=== PATIENT | female | born 1960 | race American Indian/Alaskan Native ===

== ENCOUNTER 2018-04-30 09:23 | Inpatient (IN) | payer BC, MEDICAID ==
[2018-04-30] MEDS ORDERED: NACL 0.9% 500 ML 500 ML IV ONE (09:42)
[2018-04-30 09:56] LABS: Hematocrit 34.6 % (30.3-42.9); Hemoglobin 11.3 gm/dl (10.1-14.3); Mean Corpuscular HGB Conc 33 % (30-34); Mean Corpuscular Volume 79 fl (79-97); Platelet Count 372 K/mm3 (140-440); Red Blood Count 4.36 M/mm3 (3.65-5.03); Red Cell Distribution Width 14.1 % (13.2-15.2)
[2018-04-30 10:18] LABS: Albumin 3.4 g/dL (3.9-5); Calcium 9.6 mg/dL (8.4-10.2)
[2018-04-30 10:28] LABS: Band Neutrophils # (Manual) 0.6 K/mm3; Basophils % (Manual) 0 % (0.0-1.8); Eosinophils % (Manual) 0 % (0.0-4.3); Total Cells Counted 100
[2018-04-30 10:29] LABS: Hypochromasia 1+
[2018-04-30 10:30] LABS: Anisocytosis 1+
--- NOTE | 2018-04-30 10:52 | XRay Report ---
AP CHEST: HISTORY: Possible sepsis AP view of the chest demonstrates a normal mediastinal and cardiac contour with clear lungs and normal bony and soft tissue structures. IMPRESSION: Unremarkable AP chest.
--- NOTE | 2018-04-30 11:49 | Emergency Department Report ---
ED General Adult HPI - General Chief complaint: Extremity Injury, Lower Stated complaint: HOLE IN FOOT/DIABETIC Time Seen by Provider: 04/30/18 10:53 Source: patient Mode of arrival: Ambulatory Limitations: No Limitations - History of Present Illness Initial comments: Patient presents to emergency department with chief complaint of right foot pain. Patient states she has a wound on the ball of her foot that started about a week ago. The patient recently moved from [place] and states she was doing a lot of packing and walking on her feet and thinks that is the cause of the wound. The patient states that her relocation from [place] to [place] was via car. Patient denies chest pain, shortness breath, or headache. -: Gradual Location: lower extremity Radiation: non-radiation Severity scale (0 -10): 8 Quality: aching Consistency: constant Improves with: none Worsens with: none Associated Symptoms: denies other symptoms Treatments Prior to Arrival: none - Related Data Home Medications Medication Instructions Recorded Confirmed Last Taken Aspirin [Aspir-Low] 81 mg PO DAILY 04/30/18 04/30/18 Unknown Gabapentin [Gralise] 300 mg PO DAILY 04/30/18 04/30/18 Unknown Glipizide/Metformin HCl 1 each PO BID 04/30/18 04/30/18 Unknown [glipiZIDE-Metformin 2.5-250 mg] Lisinopril/Hydrochlorothiazide 1 tab PO QDAY 04/30/18 04/30/18 Unknown [Zestoretic 20-25 mg] Simvastatin 20 mg PO DAILY 04/30/18 04/30/18 Unknown Allergies Allergy/AdvReac Type Severity Reaction Status Date / Time No Known Allergies Allergy Verified 04/30/18 09:32 ED Review of Systems ROS: Stated complaint: HOLE IN FOOT/DIABETIC Other details as noted in HPI Constitutional: denies: chills, fever Eyes: denies: eye pain, eye discharge, vision change ENT: denies: ear pain, throat pain Respiratory: denies: cough, shortness of breath, wheezing Cardiovascular: denies: chest pain, palpitations Endocrine: no symptoms reported Gastrointestinal: denies: abdominal pain, nausea, diarrhea Genitourinary: denies: urgency, dysuria, discharge Musculoskeletal: denies: back pain, joint swelling, arthralgia Skin: lesions. denies: rash Neurological: denies: headache, weakness, paresthesias Psychiatric: denies: anxiety, depression Hematological/Lymphatic: denies: easy bleeding, easy bruising ED Past Medical Hx - Past Medical History Previous Medical History?: Yes Hx Hypertension: Yes Hx Diabetes: Yes Additional medical history: HLD - Surgical History Past Surgical History?: No - Social History Smoking Status: Never Smoker Substance Use Type: None - Medications Home Medications: Home Medications Medication Instructions Recorded Confirmed Last Taken Type Aspirin [Aspir-Low] 81 mg PO DAILY 04/30/18 04/30/18 Unknown History Gabapentin [Gralise] 300 mg PO DAILY 04/30/18 04/30/18 Unknown History Glipizide/Metformin HCl 1 each PO BID 04/30/18 04/30/18 Unknown History [glipiZIDE-Metformin 2.5-250 mg] Lisinopril/Hydrochlorothiazide 1 tab PO QDAY 04/30/18 04/30/18 Unknown History [Zestoretic 20-25 mg] Simvastatin 20 mg PO DAILY 04/30/18 04/30/18 Unknown History ED Physical Exam - General Limitations: No Limitations General appearance: alert, in no apparent distress - Head Head exam: Present: atraumatic, normocephalic - Eye Eye exam: Present: normal appearance, PERRL, EOMI - ENT ENT exam: Present: mucous membranes moist - Neck Neck exam: Present: normal inspection - Respiratory Respiratory exam: Present: normal lung sounds bilaterally. Absent: respiratory distress, wheezes, rales - Cardiovascular Cardiovascular Exam: Present: normal rhythm, tachycardia. Absent: systolic murmur, diastolic murmur, rubs, gallop - GI/Abdominal GI/Abdominal exam: Present: soft, normal bowel sounds. Absent: distended, tenderness - Extremities Exam Extremities exam: Present: other (patient has a ulcer on the plantar aspect of the foot at the ball of the great toe with surrounding erythema streaking onto the lateral aspect of the right leg) - Back Exam Back exam: Present: normal inspection - Neurological Exam Neurological exam: Present: alert, oriented X3, CN II-XII intact. Absent: motor sensory deficit - Psychiatric Psychiatric exam: Present: normal affect, normal mood - Skin Skin exam: Present: warm, dry, intact, normal color, rash ED Course Vital Signs 04/30/18 04/30/18 04/30/18 09:32 09:54 10:01 Temperature 99 F Pulse Rate 106 H 100 H 100 H Respiratory 18 17 Rate Blood Pressure 92/49 O2 Sat by Pulse 99 94 Oximetry ED Medical Decision Making - Lab Data Result diagrams: 04/30/18 09:44 04/30/18 09:44 Lab Results 04/30/18 04/30/18 04/30/18 Range/Units 09:41 09:44 09:44 WBC 21.6 H (4.5-11.0) K/mm3 RBC 4.36 (3.65-5.03) M/mm3 Hgb 11.3 (10.1-14.3) gm/dl Hct 34.6 (30.3-42.9) % MCV 79 (79-97) fl MCH 26 L (28-32) pg MCHC 33 (30-34) % RDW 14.1 (13.2-15.2) % Plt Count 372 (140-440) K/mm3 Add Manual Diff Complete Total Counted 100 Seg Neuts % (Manual) 79.0 H (40.0-70.0) % Band Neutrophils % 3.0 % Lymphocytes % (Manual) 9.0 L (13.4-35.0) % Reactive Lymphs % (Man) 0 % Monocytes % (Manual) 9.0 H (0.0-7.3) % Eosinophils % (Manual) 0 (0.0-4.3) % Basophils % (Manual) 0 (0.0-1.8) % Metamyelocytes % 0 % Myelocytes % 0 % Promyelocytes % 0 % Blast Cells % 0 % Nucleated RBC % Not Reportable Seg Neutrophils # Man 17.1 H (1.8-7.7) K/mm3 Band Neutrophils # 0.6 K/mm3 Lymphocytes # (Manual) 1.9 (1.2-5.4) K/mm3 Abs React Lymphs (Man) 0.0 K/mm3 Monocytes # (Manual) 1.9 H (0.0-0.8) K/mm3 Eosinophils # (Manual) 0.0 (0.0-0.4) K/mm3 Basophils # (Manual) 0.0 (0.0-0.1) K/mm3 Metamyelocytes # 0.0 K/mm3 Myelocytes # 0.0 K/mm3 Promyelocytes # 0.0 K/mm3 Blast Cells # 0.0 K/mm3 WBC Morphology Not Reportable Hypersegmented Neuts Not Reportable Hyposegmented Neuts Not Reportable Hypogranular Neuts Not Reportable Smudge Cells Not Reportable Toxic Granulation Not Reportable Toxic Vacuolation Not Reportable Dohle Bodies Not Reportable Pelger-Huet Anomaly Not Reportable Jb Rods Not Reportable Platelet Estimate Not Reportable Clumped Platelets Not Reportable Plt Clumps, EDTA Not Reportable Large Platelets Not Reportable Giant Platelets Not Reportable Platelet Satelliting Not Reportable Plt Morphology Comment Not Reportable RBC Morphology Not Reportable Dimorphic RBCs Not Reportable Polychromasia 1+ Hypochromasia 1+ Poikilocytosis Not Reportable Anisocytosis 1+ Microcytosis Not Reportable Macrocytosis Not Reportable Spherocytes Not Reportable Pappenheimer Bodies Not Reportable Sickle Cells Not Reportable Target Cells Not Reportable Tear Drop Cells Not Reportable Ovalocytes Not Reportable Helmet Cells Not Reportable [place] Bodies Not Reportable [place] Not Reportable [place] Cells Not Reportable Bite Cells Not Reportable Crenated Cell Not Reportable Elliptocytes Not Reportable Acanthocytes (Spur) Not Reportable Rouleaux Not Reportable Hemoglobin C Crystals Not Reportable Schistocytes Not Reportable Malaria parasites Not Reportable Kevin Bodies Not Reportable Hem Pathologist Commnt No VBG pH (7.320-7.420) Sodium 133 L (137-145) mmol/L Potassium 4.1 (3.6-5.0) mmol/L Chloride 90.9 L (98-107) mmol/L Carbon Dioxide 24 (22-30) mmol/L Anion Gap 22 mmol/L BUN 25 H (7-17) mg/dL Creatinine 1.2 (0.7-1.2) mg/dL Estimated GFR 46 ml/min BUN/Creatinine Ratio 21 % Glucose 215 H (65-100) mg/dL POC Glucose 235 H (70-105) Lactic Acid (0.7-2.0) mmol/L Calcium 9.6 (8.4-10.2) mg/dL Total Bilirubin 0.40 (0.1-1.2) mg/dL AST 19 (5-40) units/L ALT 30 (7-56) units/L Alkaline Phosphatase 187 H (35-129) units/L Total Protein 8.5 H (6.3-8.2) g/dL Albumin 3.4 L (3.9-5) g/dL Albumin/Globulin Ratio 0.7 % 04/30/18 04/30/18 Range/Units 09:44 09:44 WBC (4.5-11.0) K/mm3 RBC (3.65-5.03) M/mm3 Hgb (10.1-14.3) gm/dl Hct (30.3-42.9) % MCV (79-97) fl MCH (28-32) pg MCHC (30-34) % RDW (13.2-15.2) % Plt Count (140-440) K/mm3 Add Manual Diff Total Counted Seg Neuts % (Manual) (40.0-70.0) % Band Neutrophils % % Lymphocytes % (Manual) (13.4-35.0) % Reactive Lymphs % (Man) % Monocytes % (Manual) (0.0-7.3) % Eosinophils % (Manual) (0.0-4.3) % Basophils % (Manual) (0.0-1.8) % Metamyelocytes % % Myelocytes % % Promyelocytes % % Blast Cells % % Nucleated RBC % Seg Neutrophils # Man (1.8-7.7) K/mm3 Band Neutrophils # K/mm3 Lymphocytes # (Manual) (1.2-5.4) K/mm3 Abs React Lymphs (Man) K/mm3 Monocytes # (Manual) (0.0-0.8) K/mm3 Eosinophils # (Manual) (0.0-0.4) K/mm3 Basophils # (Manual) (0.0-0.1) K/mm3 Metamyelocytes # K/mm3 Myelocytes # K/mm3 Promyelocytes # K/mm3 Blast Cells # K/mm3 WBC Morphology Hypersegmented Neuts Hyposegmented Neuts Hypogranular Neuts Smudge Cells Toxic Granulation Toxic Vacuolation Dohle Bodies Pelger-Huet Anomaly Jb Rods Platelet Estimate Clumped Platelets Plt Clumps, EDTA Large Platelets Giant Platelets Platelet Satelliting Plt Morphology Comment RBC Morphology Dimorphic RBCs Polychromasia Hypochromasia Poikilocytosis Anisocytosis Microcytosis Macrocytosis Spherocytes Pappenheimer Bodies Sickle Cells Target Cells Tear Drop Cells Ovalocytes Helmet Cells [place] Bodies [place] Cells Bite Cells Crenated Cell Elliptocytes Acanthocytes (Spur) Rouleaux Hemoglobin C Crystals Schistocytes Malaria parasites Kevin Bodies Hem Pathologist Commnt VBG pH 7.360 (7.320-7.420) Sodium (137-145) mmol/L Potassium (3.6-5.0) mmol/L Chloride (98-107) mmol/L Carbon Dioxide (22-30) mmol/L Anion Gap mmol/L BUN (7-17) mg/dL Creatinine (0.7-1.2) mg/dL Estimated GFR ml/min BUN/Creatinine Ratio % Glucose (65-100) mg/dL POC Glucose (70-105) Lactic Acid 2.40 H* (0.7-2.0) mmol/L Calcium (8.4-10.2) mg/dL Total Bilirubin (0.1-1.2) mg/dL AST (5-40) units/L ALT (7-56) units/L Alkaline Phosphatase (35-129) units/L Total Protein (6.3-8.2) g/dL Albumin (3.9-5) g/dL Albumin/Globulin Ratio % - Radiology Data Radiology results: report reviewed - Medical Decision Making Discussed results with the patient The admitting physician will follow the Doppler ultrasound of the lower extremity Critical care time in (mins) excluding proc time.: 45 Critical care attestation.: If time is entered above; I have spent that time in minutes in the direct care of this critically ill patient, excluding procedure time. ED Disposition Clinical Impression: Sepsis Disposition: [id number] OP ADMIT IP TO THIS HOSP Is pt being admited?: Yes Does the pt Need Aspirin: No Condition: Fair Referrals: ROSITA WYLIE MD [Primary Care Provider] - 3-5 Days
--- NOTE | 2018-04-30 11:58 | XRay Report ---
RIGHT FOOT, 3 views: History: Ulcer. The bony architecture is intact. Bony alignment is normal. The joint spaces appear preserved. Shallow area of ulceration is suspected in the distal foot plantar surface. IMPRESSION: Ulcer.
--- NOTE | 2018-04-30 13:36 | Vascular Lab Report ---
FINAL REPORT EXAM: VL VENOUS DUPLEX LE RT HISTORY: right leg pain COMPARISON: None. TECHNIQUE: Duplex Doppler ultrasound of the veins of the right lower extremity was performed. FINDINGS: The veins of the right lower extremity are patent, compressible, and demonstrate normal waveforms and augmentation. There is a prominent lymph node in the right groin measuring approximately 1 x 2 centimeters. IMPRESSION: No evidence of deep venous thrombosis of the right lower extremity. Prominent lymph node in the right groin measuring approximately 1 x 2 centimeters.
[2018-04-30] MEDS ORDERED: TYLENOL ONE (16:44)
[2018-04-30] MEDS ORDERED: TYLENOL PO ONE (16:45)
--- NOTE | 2018-05-01 00:15 | Event Note ---
Date: 04/30/18 See dictated H/p in reports RLE cellulitis Sepsis T2dm
[2018-05-01] MEDS ORDERED: IBUPROFEN PO PRN (00:18)
[2018-05-01] MEDS ORDERED: ZOFRAN IV PRN (00:18)
[2018-05-01] MEDS ORDERED: SODIUM CHLORIDE FLUSH SYRINGE 10 ML IV PRN (00:18)
[2018-05-01] MEDS ORDERED: REGLAN IV PRN (00:18)
[2018-05-01] MEDS: NEURONTIN PO SCH ×3 (00:30→17:44)
[2018-05-01] MEDS: PEPCID PO SCH ×3 (00:30→22:15)
[2018-05-01] MEDS ORDERED: VANCOMYCIN PHARMACY TO DOSE IV SCH (01:00)
--- NOTE | 2018-05-01 01:03 | History and Physical Report ---
CHIEF COMPLAINT: Right foot ulcer and swelling of the right leg for 1 week. HISTORY OF PRESENT ILLNESS: The patient is a 58-year-old female with history of hypertension, diabetes, peripheral neuropathy, hyperlipidemia, who comes in for right foot ulcer and the right foot and right lower extremity swelling for 1 week. The patient moved recently from [place] and was doing a lot of unpacking and walking on her feet. The patient also has a low-grade fever. The patient came from [place] to [place] via car. Decreased sensation in both the feet. Pain is about 6 on a scale of 1-10. Swelling of the right lower extremity present, especially up to knee. No exacerbating or relieving factors. Walking and standing exacerbates the pain in the right lower extremity. PAST MEDICAL HISTORY: As mentioned, hypertension, diabetes, hyperlipidemia, peripheral neuropathy. CURRENT MEDICATIONS: Glipizide/metformin 2.5/250 b.i.d., lisinopril/hydrochlorothiazide 1 tablet daily, simvastatin 20 mg once a day, aspirin 81 mg once a day, gabapentin 300 mg once a day. PAST SURGICAL HISTORY: No past surgical history. SOCIAL HISTORY: Does not smoke. No alcohol, no recreational drugs. FAMILY HISTORY: Significant for hypertension. REVIEW OF SYSTEMS: Significant for right foot and right leg swelling up to the knee. Low grade fever. Otherwise, review of systems negative. PHYSICAL EXAMINATION: GENERAL: Middle-aged female, cooperative during examination. VITAL SIGNS: Blood pressure is 99/52, improved to 133/65, temperature is 99.3. HEENT: Unremarkable. Pupils equal and reactive. NECK: Supple, no lymphadenopathy, no thyromegaly. LUNGS: Clear to auscultation and percussion. Good air entry. CARDIOVASCULAR: S1, S2 heard. No gallop, no murmur, no rub. Apical impulse in the left fifth intercostal space and midclavicular line. ABDOMEN: Soft and benign. No hepatosplenomegaly. No guarding, no rigidity. Hernial orifices are normal. EXTREMITIES: Right foot ulcer present. 3 cm x 2 cm. Slightly deep. Right foot and right lower extremity swelling. Warm to touch. Pulses are present. CENTRAL NERVOUS SYSTEM: Alert and oriented x 4, nonfocal exam. SKIN: As mentioned, also on the dorsum of the forefoot. LABORATORY DATA: Significant for white count of 21,600, H and H of 11.3 and 34.6, platelet count of 372,000. Sodium is 133, slightly low; BUN and creatinine is 25 and 1.2. Lactic acid is 2.30. Total protein is 8.5, albumin is 3.4. RADIOLOGICAL DATA: The right foot x-ray shows a plantar ulcer. Chest x-ray, no acute finding. Duplex scan of the right lower extremity, no DVT or SVT. ASSESSMENT AND PLAN: 1. Sepsis secondary to right foot ulcer and right foot infection. IV Unasyn and IV vancomycin started. 2. High lactic acid level, the second one normalized. 3. Right lower extremity cellulitis and plantar surface ulcer. The patient initiated on IV antibiotics and wound care. 4. Hypertension. Continue antihypertensives in the form of lisinopril/hydrochlorothiazide 20/25 p.o. daily. 5. Hyperlipidemia. Continue simvastatin 20 mg once a day. 6. Type 2 diabetes. Continue glipizide/metformin 2.5/250 b.i.d. Insulin coverage. 7. Deep venous thrombosis prophylaxis, Lovenox 30 mg subcutaneous daily. JOB# [id number] MARIBELL/WINTER ANDERSEN
[2018-05-01] MEDS: SODIUM CHLORIDE FLUSH SYRINGE 10 ML IV SCH ×2 (01:23→10:28)
[2018-05-01 01:29] LABS: BUN/Creatinine Ratio 26; Blood Urea Nitrogen 21 mg/dL (7-17); Calcium 9.2 mg/dL (8.4-10.2); Hemolysis Index 0
[2018-05-01] MEDS ORDERED: VANCOMYCIN 1,750 MG in NACL 0.9% 500 ML 500 ML IV ONE (02:00)
[2018-05-01] MEDS: UNASYN/NS 3 GM/100 ML 3 GM/100 ML BAG IV SCH ×3 (03:52→11:20)
[2018-05-01] MEDS: TYLENOL PO PRN ×2 (06:40→13:56)
[2018-05-01] MEDS ORDERED: DIABETA PO SCH (08:00)
[2018-05-01] MEDS ORDERED: GLUCOTROL PO SCH (08:00)
[2018-05-01] MEDS: HumaLOG SUB-Q SCH ×3 (08:27→17:13)
[2018-05-01] MEDS: GLUCOPHAGE PO SCH ×2 (08:39→17:42)
[2018-05-01] MEDS: GLUCOTROL PO SCH ×2 (08:41→17:42)
[2018-05-01] MEDS ORDERED: METFORMIN HCL PO SCH (10:00)
[2018-05-01] MEDS ORDERED: GLIPIZIDE PO SCH (10:00)
[2018-05-01] MEDS: HALFPRIN EC PO SCH (10:27)
[2018-05-01] MEDS: ZESTRIL PO SCH (10:27)
[2018-05-01] MEDS: HCTZ PO SCH (10:28)
[2018-05-01] MEDS ORDERED: VANCOMYCIN 1,500 MG in NACL 0.9% 500 ML 500 ML IV SCH (12:00)
[2018-05-01] MEDS: VANCOMYCIN 1,250 MG in NACL 0.9% 250ML 250 ML IV SCH (12:43)
--- NOTE | 2018-05-01 12:48 | Consultation ---
History of Present Illness Consult date: 05/01/18 Chief complaint: right foot wound - History of present illness History of present illness: 58 yo F with hx of DM, poorly controlled presents with c/o right foot pain and foul odor and drainage from foot. She relocated to [place] 1 week ago. She states she was being followed by a comb fixer and wound care doctor in the distant past. She had a wound on her right heel and left 2nd toe which was treated and healed. She states that one week ago she noticed pain and drainage from the bottom part of her right foot. The drainage became foul smelling and this prompted her visit to ER to r/o infection. She denies f/c, cp, sob, n/v, abd pain. She states she doesn't have good sensation on the bottom of the foot. She does not wear diabet ic shoes. Past History Past Medical History: diabetes, hypertension, hyperlipidemia, other (neuropathy) Past Surgical History: Other (left foot surgery) Social history: no significant social history Family history: no significant family history Medications and Allergies Allergies Allergy/AdvReac Type Severity Reaction Status Date / Time No Known Allergies Allergy Verified 04/30/18 09:32 Home Medications Medication Instructions Recorded Confirmed Last Taken Type Aspirin [Aspir-Low] 81 mg PO DAILY 04/30/18 04/30/18 Unknown History Gabapentin [Gralise] 300 mg PO DAILY 04/30/18 04/30/18 Unknown History Glipizide/Metformin HCl 1 each PO BID 04/30/18 04/30/18 Unknown History [glipiZIDE-Metformin 2.5-250 mg] Lisinopril/Hydrochlorothiazide 1 tab PO QDAY 04/30/18 04/30/18 Unknown History [Zestoretic 20-25 mg] Simvastatin 20 mg PO DAILY 04/30/18 04/30/18 Unknown History Active Meds: Active Medications Acetaminophen (Tylenol) 650 mg PO Q4H PRN PRN Reason: Pain MILD(1-3)/Fever >100.5/SALEEM Last Admin: 05/01/18 06:40 Dose: 650 mg Documented by: Aspirin (Halfprin Ec) 81 mg PO DAILY [facility] Last Admin: 05/01/18 10:27 Dose: 81 mg Documented by: Enoxaparin Sodium (Lovenox) 40 mg SUB-Q QDAY@2200 [facility] Famotidine (Pepcid) 20 mg PO BID [facility] Last Admin: 05/01/18 10:28 Dose: 20 mg Documented by: Gabapentin (Neurontin) 100 mg PO Q8H [facility] Last Admin: 05/01/18 08:38 Dose: 100 mg Documented by: Glipizide (Glucotrol) 2.5 mg PO BIDDIAB [facility] Last Admin: 05/01/18 08:41 Dose: 2.5 mg Documented by: Hydrochlorothiazide (Hctz) 25 mg PO QDAY [facility] Last Admin: 05/01/18 10:28 Dose: 25 mg Documented by: Hydromorphone HCl (Dilaudid) 0.5 mg IV Q3H PRN PRN Reason: Pain , Severe (7-10) Ampicillin Sodium/Sulbactam Sodium (Unasyn/Ns 3 Gm/100 Ml) 3 gm in 100 mls @ 100 mls/hr IV Q6HR [facility]; Protocol Last Admin: 05/01/18 11:20 Dose: 100 mls/hr Documented by: Vancomycin HCl 1,250 mg/ (Sodium Chloride) 275 mls @ 166.667 mls/hr IV Q12H [facility] Insulin Human Lispro (Humalog) 0 unit SUB-Q ACHS [facility]; Protocol Last Admin: 05/01/18 08:27 Dose: Not Given Documented by: Lisinopril (Zestril) 20 mg PO QDAY [facility] Last Admin: 05/01/18 10:27 Dose: 20 mg Documented by: Metformin HCl (Glucophage) 250 mg PO BIDDIAB [facility] Last Admin: 05/01/18 08:39 Dose: 250 mg Documented by: Metoclopramide HCl (Reglan) 10 mg IV Q6H PRN PRN Reason: Nausea And Vomiting Ondansetron HCl (Zofran) 4 mg IV Q8H PRN PRN Reason: Nausea And Vomiting Oxycodone/Acetaminophen (Percocet 5/325) 1 tab PO Q6H PRN PRN Reason: Pain, Moderate (4-6) Pravastatin Sodium (Pravachol) 40 mg PO QHS [facility] Sodium Chloride (Sodium Chloride Flush Syringe 10 Ml) 10 ml IV BID [facility] Last Admin: 05/01/18 10:28 Dose: 10 ml Documented by: Sodium Chloride (Sodium Chloride Flush Syringe 10 Ml) 10 ml IV PRN PRN PRN Reason: LINE FLUSH Review of Systems All systems: negative (10 pt ROS performed and negative except for that listed in HPI) Exam Vital Signs Temp Pulse Resp BP Pulse Ox 99 F 106 H 18 92/49 99 04/30/18 09:32 04/30/18 09:32 04/30/18 09:32 04/30/18 09:32 04/30/18 09:32 Narrative exam: Gen; AAOx3. NAD ENT: no scleral icterus or conjunctival pallor CV: S1, S2+ Resp; even and unlabored Ext; right plantar foot wound approx 1 cm, with tunneling to bone. Seropurulent drainage from packing, 1 piece of mesalt removed from wound. There is a callus surrounding the wound with some erythema. No active drainage. packed with one piece of mesalt packing. Wound covered with gauze and wrapped with kerlix. Strongly palpable DP and PT pulses. Results - Labs 04/30/18 09:44 05/01/18 00:35 Abnormal lab results 05/01/18 05/01/18 Range/Units 00:35 00:35 Sodium 134 L (137-145) mmol/L Chloride 93.8 L (98-107) mmol/L BUN 21 H (7-17) mg/dL Hemoglobin A1c 11.7 H (4-6) % Diabetes panel 05/01/18 05/01/18 Range/Units 00:35 00:35 Sodium 134 L (137-145) mmol/L Potassium 3.8 (3.6-5.0) mmol/L Chloride 93.8 L (98-107) mmol/L Carbon Dioxide 25 (22-30) mmol/L BUN 21 H (7-17) mg/dL Creatinine 0.8 (0.7-1.2) mg/dL Glucose 97 (65-100) mg/dL Hemoglobin A1c 11.7 H (4-6) % Calcium 9.2 (8.4-10.2) mg/dL Calcium panel 05/01/18 Range/Units 00:35 Calcium 9.2 (8.4-10.2) mg/dL Pituitary panel 05/01/18 Range/Units 00:35 Sodium 134 L (137-145) mmol/L Potassium 3.8 (3.6-5.0) mmol/L Chloride 93.8 L (98-107) mmol/L Carbon Dioxide 25 (22-30) mmol/L BUN 21 H (7-17) mg/dL Creatinine 0.8 (0.7-1.2) mg/dL Glucose 97 (65-100) mg/dL Calcium 9.2 (8.4-10.2) mg/dL Adrenal panel 05/01/18 Range/Units 00:35 Sodium 134 L (137-145) mmol/L Potassium 3.8 (3.6-5.0) mmol/L Chloride 93.8 L (98-107) mmol/L Carbon Dioxide 25 (22-30) mmol/L BUN 21 H (7-17) mg/dL Creatinine 0.8 (0.7-1.2) mg/dL Glucose 97 (65-100) mg/dL Calcium 9.2 (8.4-10.2) mg/dL Assessment and Plan 58 yo F with 1. diabetic R foot ulcer 2. poorly controlled DM 3. sepsis due to #1 Plan: 1. diabetic diet 2. strict glucose control. Hb A1C is 11.7 3. wound care 4. MRI right foot. I suspect osteomyelitis based on physical exam 5. c/w abx per ID 6. offloading of right foot. PT c/s to teach patient nonweight bearing 7. At this point, the wound is open and draining without evidence of additional abscess or necrosis. Will hold off on debridement. If MRI shows patient has an a bscess, will take her to OR for drainage. Frrther recs pending MRI 8. recommend case management c/s - pt states insurance lapses in a few days. Will need investigation. If she will be unfunded at time of dc, will need helping hands application to follow up in wound care center. Thank you, please call with questions
--- NOTE | 2018-05-01 13:16 | Consultation ---
History of Present Illness - Reason for Consult Consult date: 05/01/18 Right foot cellulitis, DM, ulcer, sepsis Requesting physician: PRESTON LEIGH - History of Present Illness The patient is a 58-year-old female with hypertension, diabetes, peripheral neuropathy related to diabetes, hyperlipidemia presented to the emergency yesterday with complaints of right leg pain and ulceration for the last week or so. The patient just recently moved from [place] to [place] and apparently drove in the car and spent a lot of time on her feet. She denies any direct trauma. This has been associated with fever. Due to increasing pain, she came here. Here in the emergency room, she was noted to have right axillary distress with right plantar ulcer. She was also found to be septic with leukocytosis, fever, lactic acidosis. She was empirically started on antibiotics and admitted to the hospital. Infectious diseases has been consulted for antibiotic recommendations. Patient denies any previous history of mold infection or osteomyelitis. She does give a history of prior leg infections. She denies any smoking, alcohol or recreational drug use. Family history: Positive for hypertension. Review of Systems: General: + for fevers, no chills or rigors HEENT: no new visual disturbance Respiratory: No cough, sputum, hemoptysis or shortness of breath Cardiovascular: No chest pain, syncope Gastrointestinal: No nausea, vomiting or diarrhea Genitourinary: No dysuria or hematuria Musculoskeletal: No new or worsening neck pain or back pain Neurologic: No headaches, seizures Hematologic: No easy bruising or bleeding Endocrine: No night sweats or acute weight loss Skin: negative for rash, jaundice Psychiatric: No suicidal or homicidal ideation Past History Past Medical History: diabetes, hypertension, hyperlipidemia, other (neuropathy) Past Surgical History: Other (left foot surgery) Social history: no significant social history Family history: no significant family history Medications and Allergies Allergies Allergy/AdvReac Type Severity Reaction Status Date / Time No Known Allergies Allergy Verified 04/30/18 09:32 Home Medications Medication Instructions Recorded Confirmed Last Taken Type Aspirin [Aspir-Low] 81 mg PO DAILY 04/30/18 04/30/18 Unknown History Gabapentin [Gralise] 300 mg PO DAILY 04/30/18 04/30/18 Unknown History Glipizide/Metformin HCl 1 each PO BID 04/30/18 04/30/18 Unknown History [glipiZIDE-Metformin 2.5-250 mg] Lisinopril/Hydrochlorothiazide 1 tab PO QDAY 04/30/18 04/30/18 Unknown History [Zestoretic 20-25 mg] Simvastatin 20 mg PO DAILY 04/30/18 04/30/18 Unknown History Active Meds: Active Medications Acetaminophen (Tylenol) 650 mg PO Q4H PRN PRN Reason: Pain MILD(1-3)/Fever >100.5/SALEEM Last Admin: 05/01/18 06:40 Dose: 650 mg Documented by: Aspirin (Halfprin Ec) 81 mg PO DAILY [facility] Last Admin: 05/01/18 10:27 Dose: 81 mg Documented by: Enoxaparin Sodium (Lovenox) 40 mg SUB-Q QDAY@2200 [facility] Famotidine (Pepcid) 20 mg PO BID [facility] Last Admin: 05/01/18 10:28 Dose: 20 mg Documented by: Gabapentin (Neurontin) 100 mg PO Q8H [facility] Last Admin: 05/01/18 08:38 Dose: 100 mg Documented by: Glipizide (Glucotrol) 2.5 mg PO BIDDIAB [facility] Last Admin: 05/01/18 08:41 Dose: 2.5 mg Documented by: Hydrochlorothiazide (Hctz) 25 mg PO QDAY [facility] Last Admin: 05/01/18 10:28 Dose: 25 mg Documented by: Hydromorphone HCl (Dilaudid) 0.5 mg IV Q3H PRN PRN Reason: Pain , Severe (7-10) Ampicillin Sodium/Sulbactam Sodium (Unasyn/Ns 3 Gm/100 Ml) 3 gm in 100 mls @ 100 mls/hr IV Q6HR [facility]; Protocol Last Admin: 05/01/18 11:20 Dose: 100 mls/hr Documented by: Vancomycin HCl 1,250 mg/ (Sodium Chloride) 275 mls @ 166.667 mls/hr IV Q12H [facility] Last Admin: 05/01/18 12:43 Dose: 166.667 mls/hr Documented by: Insulin Human Lispro (Humalog) 0 unit SUB-Q ACHS [facility]; Protocol Last Admin: 05/01/18 12:43 Dose: Not Given Documented by: Lisinopril (Zestril) 20 mg PO QDAY [facility] Last Admin: 05/01/18 10:27 Dose: 20 mg Documented by: Metformin HCl (Glucophage) 250 mg PO BIDDIAB [facility] Last Admin: 05/01/18 08:39 Dose: 250 mg Documented by: Metoclopramide HCl (Reglan) 10 mg IV Q6H PRN PRN Reason: Nausea And Vomiting Ondansetron HCl (Zofran) 4 mg IV Q8H PRN PRN Reason: Nausea And Vomiting Oxycodone/Acetaminophen (Percocet 5/325) 1 tab PO Q6H PRN PRN Reason: Pain, Moderate (4-6) Pravastatin Sodium (Pravachol) 40 mg PO QHS [facility] Sodium Chloride (Sodium Chloride Flush Syringe 10 Ml) 10 ml IV BID [facility] Last Admin: 05/01/18 10:28 Dose: 10 ml Documented by: Sodium Chloride (Sodium Chloride Flush Syringe 10 Ml) 10 ml IV PRN PRN PRN Reason: LINE FLUSH Physical Examination - Physical Exam Narrative exam: Physical Exam: Constitutional: Alert, cooperative. No acute distress Head, Ears, Nose: Normocephalic, atraumatic. External ears, nose normal Eyes: Conjunctivae/corneas clear. No icterus. No ptosis. Neck: Supple, no meningeal signs Oral: dentition missing teeth, no thrush Cardiovascular: S1, S2 normal. Respiratory: Good air entry, clear to auscultation bilaterally GI: Soft, non-tender; bowel sounds normal. No peritoneal signs Musculoskeletal: right foot in dressing, there is swelling, redness and tenderness of the leg upto mid mo, right groin lymph node +. right plantar ulcer+ Skin: No rash or abscess Hem/Lymphatic: No palpable cervical or supraclavicular nodes. No lymphangitis Psych: Mood ok. Affect normal Neurological: Awake, alert, oriented. peripheral neuropathy + - Constitutional Vitals: Vital Signs Temp Pulse Resp BP Pulse Ox 99.8 F H 105 H 20 147/68 94 05/01/18 12:50 05/01/18 12:50 05/01/18 12:50 05/01/18 12:50 05/01/18 12:50 Temperature -Last 24 Hours Temperature 99.8 F Temperature 98.8 F Temperature 101.5 F Temperature 100.5 F Temperature 99.3 F Temperature 100.8 F Results - Labs CBC & Chem 7: 04/30/18 09:44 05/01/18 00:35 Labs: Abnormal lab results 05/01/18 05/01/18 Range/Units 00:35 00:35 Sodium 134 L (137-145) mmol/L Chloride 93.8 L (98-107) mmol/L BUN 21 H (7-17) mg/dL Hemoglobin A1c 11.7 H (4-6) % - Imaging and Cardiology Chest x-ray: report reviewed, image reviewed (Chest x-ray showed no obvious pneumonia. ) Assessment and Plan Cultures: 05/08/2018 blood culture: No growth at 24 hours 04/30/2018 wound culture: In process A/P: 58-year-old female with hypertension, diabetes, peripheral neuropathy related to diabetes, hyperlipidemia. Admitted with: 1) Sepsis secondary to right foot diabetic foot ulcer infected with associated cellulitis: concern for underlying osteomyelitis. Needs MRI. Start broad coverage for now, pending cultures. 2) Diabetes mellitus type 2 uncontrolled: Recommend tight glycemic control. 3) Diabetic neuropathy: high risk for osteomyelitis. Recs: Switch antibiotics to cefepime, Flagyl and vancomycin MRI ordered to evaluate for underlying osteomyelitis and abscess Follow-up blood and wound cultures to help de-escalate antibiotics MD [facility] C: [phone] O: [phone] F: [phone]
--- NOTE | 2018-05-01 16:46 | Progress Note ---
Assessment and Plan Assessment and plan: Patient is a 58 yo Black woman with a history of NIDDM with neuropathy on gabapentin, hypertension and dyslipidemia who presents to [facility] ED with right foot pains on the ball of her foot that started about a week ago. Now, she is having severe pains, difficulty ambulating and foul ordor with drainage. She just moved to [place] about 1 week ago from [place] -Sepsis from Right foot infection: get blood and wound culture, MRI foot to rule out osteomyelitis, Switch antibiotics to cefepime, Flagyl and vancomycin -Right foot cellulitis: treat with abx -Poorly controlled DM: SSI -Diabetic neuropathy: continue gabapentin History Interval history: Patient was seen and examined. Follow-up on current diagnosis right plantar foot infection. Overnight uneventful. Patient denies any chest pain, shortness breath, nausea/vomiting or severe headaches. Imaging, nursing note, chart, labs and old chart reviewed. Discussed with patient. Hospitalist Physical - Physical exam Narrative exam: Gen: WDWN, NAD, Awake, Alert, Orientated HEENT: NCAT, EOMI, PERRL, OP Clear Neck: supple, no adenopathy, no thyromegaly, no JVD CVS/Heart: RRR, normal S1S2, pulses present bilaterally Chest/Lungs: CTA B, Symmetrical chest expansion, good air entry bilaterally GI/Abdomen: soft, NTND, good bowel sounds, no guarding or rebound /Bladder: no suprapubic tenderness, no CVA or paraspinal tenderness Extermity/Skin: under right big toe there is a foul smelling ulcer MSK: FROM x 4 Neuro: CN 2-12 grossly intact, no new focal deficits Psych: calm - Constitutional Vitals: Temp Pulse Resp BP Pulse Ox 99.8 F H 105 H 20 147/68 94 05/01/18 12:50 05/01/18 12:50 05/01/18 12:50 05/01/18 12:50 05/01/18 12:50 Results - Labs CBC & Chem 7: 04/30/18 09:44 05/01/18 00:35 Labs: Laboratory Last Values WBC 21.6 K/mm3 (4.5-11.0) H 04/30/18 09:44 RBC 4.36 M/mm3 (3.65-5.03) 04/30/18 09:44 Hgb 11.3 gm/dl (10.1-14.3) 04/30/18 09:44 Hct 34.6 % (30.3-42.9) 04/30/18 09:44 MCV 79 fl (79-97) 04/30/18 09:44 MCH 26 pg (28-32) L 04/30/18 09:44 MCHC 33 % (30-34) 04/30/18 09:44 RDW 14.1 % (13.2-15.2) 04/30/18 09:44 Plt Count 372 K/mm3 (140-440) 04/30/18 09:44 Add Manual Diff Complete 04/30/18 09:44 Total Counted 100 04/30/18 09:44 Seg Neuts % (Manual) 79.0 % (40.0-70.0) H 04/30/18 09:44 Band Neutrophils % 3.0 % 04/30/18 09:44 Lymphocytes % (Manual) 9.0 % (13.4-35.0) L 04/30/18 09:44 Reactive Lymphs % (Man) 0 % 04/30/18 09:44 Monocytes % (Manual) 9.0 % (0.0-7.3) H 04/30/18 09:44 Eosinophils % (Manual) 0 % (0.0-4.3) 04/30/18 09:44 Basophils % (Manual) 0 % (0.0-1.8) 04/30/18 09:44 Metamyelocytes % 0 % 04/30/18 09:44 Myelocytes % 0 % 04/30/18 09:44 Promyelocytes % 0 % 04/30/18 09:44 Blast Cells % 0 % 04/30/18 09:44 Nucleated RBC % Not Reportable 04/30/18 09:44 Seg Neutrophils # Man 17.1 K/mm3 (1.8-7.7) H 04/30/18 09:44 Band Neutrophils # 0.6 K/mm3 04/30/18 09:44 Lymphocytes # (Manual) 1.9 K/mm3 (1.2-5.4) 04/30/18 09:44 Abs React Lymphs (Man) 0.0 K/mm3 04/30/18 09:44 Monocytes # (Manual) 1.9 K/mm3 (0.0-0.8) H 04/30/18 09:44 Eosinophils # (Manual) 0.0 K/mm3 (0.0-0.4) 04/30/18 09:44 Basophils # (Manual) 0.0 K/mm3 (0.0-0.1) 04/30/18 09:44 Metamyelocytes # 0.0 K/mm3 04/30/18 09:44 Myelocytes # 0.0 K/mm3 04/30/18 09:44 Promyelocytes # 0.0 K/mm3 04/30/18 09:44 Blast Cells # 0.0 K/mm3 04/30/18 09:44 WBC Morphology Not Reportable 04/30/18 09:44 Hypersegmented Neuts Not Reportable 04/30/18 09:44 Hyposegmented Neuts Not Reportable 04/30/18 09:44 Hypogranular Neuts Not Reportable 04/30/18 09:44 Smudge Cells Not Reportable 04/30/18 09:44 Toxic Granulation Not Reportable 04/30/18 09:44 Toxic Vacuolation Not Reportable 04/30/18 09:44 Dohle Bodies Not Reportable 04/30/18 09:44 Pelger-Huet Anomaly Not Reportable 04/30/18 09:44 Jb Rods Not Reportable 04/30/18 09:44 Platelet Estimate Not Reportable 04/30/18 09:44 Clumped Platelets Not Reportable 04/30/18 09:44 Plt Clumps, EDTA Not Reportable 04/30/18 09:44 Large Platelets Not Reportable 04/30/18 09:44 Giant Platelets Not Reportable 04/30/18 09:44 Platelet Satelliting Not Reportable 04/30/18 09:44 Plt Morphology Comment Not Reportable 04/30/18 09:44 RBC Morphology Not Reportable 04/30/18 09:44 Dimorphic RBCs Not Reportable 04/30/18 09:44 Polychromasia 1+ 04/30/18 09:44 Hypochromasia 1+ 04/30/18 09:44 Poikilocytosis Not Reportable 04/30/18 09:44 Anisocytosis 1+ 04/30/18 09:44 Microcytosis Not Reportable 04/30/18 09:44 Macrocytosis Not Reportable 04/30/18 09:44 Spherocytes Not Reportable 04/30/18 09:44 Pappenheimer Bodies Not Reportable 04/30/18 09:44 Sickle Cells Not Reportable 04/30/18 09:44 Target Cells Not Reportable 04/30/18 09:44 Tear Drop Cells Not Reportable 04/30/18 09:44 Ovalocytes Not Reportable 04/30/18 09:44 Helmet Cells Not Reportable 04/30/18 09:44 [place] Bodies Not Reportable 04/30/18 09:44 [place] Rings Not Reportable 04/30/18 09:44 Rk Cells Not Reportable 04/30/18 09:44 Bite Cells Not Reportable 04/30/18 09:44 Crenated Cell Not Reportable 04/30/18 09:44 Elliptocytes Not Reportable 04/30/18 09:44 Acanthocytes (Spur) Not Reportable 04/30/18 09:44 Rouleaux Not Reportable 04/30/18 09:44 Hemoglobin C Crystals Not Reportable 04/30/18 09:44 Schistocytes Not Reportable 04/30/18 09:44 Malaria parasites Not Reportable 04/30/18 09:44 Kevin Bodies Not Reportable 04/30/18 09:44 Hem Pathologist Commnt No 04/30/18 09:44 VBG pH 7.360 (7.320-7.420) 04/30/18 09:44 Sodium 134 mmol/L (137-145) L 05/01/18 00:35 Potassium 3.8 mmol/L (3.6-5.0) 05/01/18 00:35 Chloride 93.8 mmol/L (98-107) L 05/01/18 00:35 Carbon Dioxide 25 mmol/L (22-30) 05/01/18 00:35 Anion Gap 19 mmol/L 05/01/18 00:35 BUN 21 mg/dL (7-17) H 05/01/18 00:35 Creatinine 0.8 mg/dL (0.7-1.2) 05/01/18 00:35 Estimated GFR > 60 ml/min 05/01/18 00:35 BUN/Creatinine Ratio 26 % 05/01/18 00:35 Glucose 97 mg/dL (65-100) 05/01/18 00:35 POC Glucose 143 (70-105) H 05/01/18 12:45 Hemoglobin A1c 11.7 % (4-6) H 05/01/18 00:35 Lactic Acid 1.10 mmol/L (0.7-2.0) 04/30/18 13:00 Calcium 9.2 mg/dL (8.4-10.2) 05/01/18 00:35 Total Bilirubin 0.40 mg/dL (0.1-1.2) 04/30/18 09:44 AST 19 units/L (5-40) 04/30/18 09:44 ALT 30 units/L (7-56) 04/30/18 09:44 Alkaline Phosphatase 187 units/L (35-129) H 04/30/18 09:44 Total Protein 8.5 g/dL (6.3-8.2) H 04/30/18 09:44 Albumin 3.4 g/dL (3.9-5) L 04/30/18 09:44 Albumin/Globulin Ratio 0.7 % 04/30/18 09:44
[2018-05-01] MEDS: FLAGYL 500 MG/100 ML 500 MG/100 ML BAG IV SCH ×2 (16:57→22:14)
[2018-05-01] MEDS ORDERED: NACL 0.9% 500 ML 500 ML IV ONE (17:26)
[2018-05-01] MEDS: NACL 0.9% 1000 ML 1,000 ML IV SCH ×2 (17:37→23:36)
[2018-05-01] MEDS: MAXIPIME/NS 2 GM/100 ML 2 GM/100 ML BAG IV SCH ×2 (17:37→23:31)
[2018-05-01] MEDS ORDERED: NACL 0.9% 1000 ML 1,000 ML IV ONE (19:01)
[2018-05-01] MEDS: PRAVACHOL PO SCH (22:15)
[2018-05-01] MEDS: LOVENOX SUB-Q SCH (22:15)
--- NOTE | 2018-05-01 22:39 | Magnetic Resonance Report ---
FINAL REPORT PROCEDURE: MR LE JOINT RT W CON TECHNIQUE: Magnetic resonance imaging of the RIGHT foot was performed using standard pulse sequences before and after the IV injection of paramagnetic contrast. HISTORY: right plantar foot wound, r/o osteo COMPARISON: No prior studies are available for comparison. FINDINGS: There is plantar ulceration in the forefoot underlying the distal 2nd metatarsal. There is no bone ma rrow edema seen to suggest osteomyelitis. There is diffuse subcutaneous edema and enhancement, compat ible with cellulitis. There is edema and enhancement of the intrinsic musculature of the foot, compat ible with myositis or denervation change. No organized abscess is seen. IMPRESSION: Plantar forefoot skin ulcer. No evidence of osteomyelitis or soft tissue abscess
[2018-05-02 05:24] LABS: Basophils # (Auto) 0.1 K/mm3 (0.0-0.1); Basophils % (Auto) 0.4 % (0.0-1.8); Eosinophils # (Auto) 0.2 K/mm3 (0.0-0.4); Eosinophils % (Auto) 1.1 % (0.0-4.3); Hematocrit 29.2 % (30.3-42.9); Hemoglobin 9.5 gm/dl (10.1-14.3); Lymphocytes # (Auto) 2.1 K/mm3 (1.2-5.4); Lymphocytes % (Auto) 11.7 % (13.4-35.0); Mean Corpuscular HGB Conc 33 % (30-34); Mean Corpuscular Volume 78 fl (79-97); Monocytes # (Auto) 1.6 K/mm3 (0.0-0.8); Monocytes % (Auto) 8.8 % (0.0-7.3); Platelet Count 354 K/mm3 (140-440); Red Blood Count 3.75 M/mm3 (3.65-5.03); Red Cell Distribution Width 13.8 % (13.2-15.2)
[2018-05-02 06:01] LABS: Alanine Aminotransferase 29 units/L (7-56); Albumin 2.4 g/dL (3.9-5); BUN/Creatinine Ratio 23; Blood Urea Nitrogen 18 mg/dL (7-17); Calcium 8.2 mg/dL (8.4-10.2); Hemolysis Index 0
[2018-05-02] MEDS: MAXIPIME/NS 2 GM/100 ML 2 GM/100 ML BAG IV SCH ×3 (07:20→22:21)
[2018-05-02] MEDS: FLAGYL 500 MG/100 ML 500 MG/100 ML BAG IV SCH ×3 (07:20→22:21)
[2018-05-02] MEDS: HumaLOG SUB-Q SCH ×4 (08:15→22:24)
--- NOTE | 2018-05-02 09:11 | Progress Note ---
Assessment and Plan Cultures: 05/08/2018 blood culture: No growth at 24 hours 04/30/2018 wound culture: In process A/P: 58-year-old female with hypertension, diabetes, peripheral neuropathy related to diabetes, hyperlipidemia. Admitted with: 1) Sepsis Improving, leukocytosis trending down, no fevers secondary to right foot diabetic foot ulcer infected with associated cellulitis: concern for underlying osteomyelitis. Needs MRI. Start broad coverage for now, pending cultures. 2) Diabetes mellitus type 2 uncontrolled: Recommend tight glycemic control. 3) Diabetic neuropathy: high risk for osteomyelitis. + Purulent drainage today, I & D at bedside by Dr Crockett. MRI results show plantar forefoot skin ulcer. No evidence of osteomyelitis or soft tissue abscess . Recs: Continue Cefepime 2 gms IV every 8 hours, D2 Continue Flagyl 500mg IV every 8 hours, D2 of D7 Continue Vancomycin 1250 mg IV every 12 hours, D2 Follow-up blood and wound cultures to help de-escalate antibiotics CBC ordered for tomorrow [facility] M: [phone] O:[phone] Subjective Date of service: 05/02/18 Interval history: Patient seen and examined. Denied generalized pain, sob or fevers. Stated that she was feeling better today. Nurses notes, labs and reports reviewed, discussed with patient. Objective - Exam Narrative Exam: Constitutional: Alert, cooperative. No acute distress Head, Ears, Nose: Normocephalic, atraumatic. External ears, nose normal Eyes: Conjunctivae/corneas clear. No icterus. No ptosis. Neck: Supple, no meningeal signs Oral: dentition missing teeth, no thrush Cardiovascular: S1, S2 normal. Respiratory: Good air entry, clear to auscultation bilaterally GI: Soft, non-tender; bowel sounds normal. No peritoneal signs Musculoskeletal: right foot in dressing, , + right plantar ulcer+, +purulent drainage Skin: No rash or abscess Hem/Lymphatic: No palpable cervical or supraclavicular nodes. No lymphangitis Psych: Mood ok. Affect normal Neurological: Awake, alert, oriented. peripheral neuropathy + - Constitutional Vitals: Vital Signs Temp Pulse Resp BP Pulse Ox 98.4 F 85 20 93/46 94 05/02/18 06:13 05/02/18 06:13 05/02/18 06:13 05/02/18 06:13 05/02/18 06:13 Temperature -Last 24 Hours Temperature 98.4 F Temperature 99.4 F Temperature 99.1 F Temperature 99.8 F Temperature 98.8 F - Labs CBC & Chem 7: 05/02/18 05:07 05/02/18 05:07 Labs: Abnormal lab results 05/01/18 05/01/18 05/01/18 Range/Units 12:45 17:05 21:44 WBC (4.5-11.0) K/mm3 Hgb (10.1-14.3) gm/dl Hct (30.3-42.9) % MCV (79-97) fl MCH (28-32) pg Lymph % (Auto) (13.4-35.0) % [place] % (Auto) (0.0-7.3) % [place] # (0.0-0.8) K/mm3 Seg Neutrophils % (40.0-70.0) % Seg Neutrophils # (1.8-7.7) K/mm3 Sodium (137-145) mmol/L BUN (7-17) mg/dL POC Glucose 143 H 186 H 140 H (70-105) Calcium (8.4-10.2) mg/dL Alkaline Phosphatase (35-129) units/L Albumin (3.9-5) g/dL 05/02/18 05/02/18 Range/Units 05:07 05:07 WBC 17.8 H (4.5-11.0) K/mm3 Hgb 9.5 L (10.1-14.3) gm/dl Hct 29.2 L (30.3-42.9) % MCV 78 L (79-97) fl MCH 26 L (28-32) pg Lymph % (Auto) 11.7 L (13.4-35.0) % [place] % (Auto) 8.8 H (0.0-7.3) % [place] # 1.6 H (0.0-0.8) K/mm3 Seg Neutrophils % 78.0 H (40.0-70.0) % Seg Neutrophils # 13.9 H (1.8-7.7) K/mm3 Sodium 135 L (137-145) mmol/L BUN 18 H (7-17) mg/dL POC Glucose (70-105) Calcium 8.2 L (8.4-10.2) mg/dL Alkaline Phosphatase 165 H (35-129) units/L Albumin 2.4 L (3.9-5) g/dL
[2018-05-02] MEDS ORDERED: XYLOCAINE 1% 20 mL INFILTRATI ONE ×2 (10:01→13:59)
--- NOTE | 2018-05-02 10:05 | Progress Note ---
Assessment and Plan 58 yo F with 1. diabetic R foot ulcer 2. poorly controlled DM 3. sepsis due to #1 MRI R foot - no osteomyelitis or soft tissue abscess Plan: 1. diabetic diet 2. strict glucose control. Hb A1C is 11.7 3. wound care 4. c/w abx per ID 5. offloading of right foot. PT c/s to teach patient nonweight bearing 6. Wound with more purulent drainage today, will need bedside incision and drainage. Discussed with patient and she is agreeable. 7. WBC trending down -> continue to monitor. 8. d/w case management - will need helping hands application to follow up in wound care center. Thank you, please call with questions Subjective Date of service: 05/02/18 Narrative: Pt seen and examined. No complaints. Feels better today. No f/c. States there is drainage from right foot wound. Objective Vital Signs - 12hr 05/01/18 05/01/18 05/02/18 22:14 23:40 06:13 Temperature 99.4 F 98.4 F Pulse Rate 84 84 85 Respiratory 17 20 20 Rate Blood Pressure 96/54 82/44 93/46 O2 Sat by Pulse 95 94 94 Oximetry - General physical appearance Narrative Exam: Gen; AAOx3. NAD CV: s1, S2+ Resp: even and unlabored Ext: R foot wound on plantar aspect of foot with purulent drainage and p ersistent erythema/cellulitis. One piece of mesalt packing removed. Minimal TTP. Covered with ABD pad and wrapped with kerlix. - Labs 05/02/18 05:07 05/02/18 05:07 Diabetes panel 05/02/18 Range/Units 05:07 Sodium 135 L (137-145) mmol/L Potassium 3.9 (3.6-5.0) mmol/L Chloride 100.4 (98-107) mmol/L Carbon Dioxide 24 (22-30) mmol/L BUN 18 H (7-17) mg/dL Creatinine 0.8 (0.7-1.2) mg/dL Glucose 83 (65-100) mg/dL Calcium 8.2 L (8.4-10.2) mg/dL AST 23 (5-40) units/L ALT 29 (7-56) units/L Alkaline Phosphatase 165 H (35-129) units/L Total Protein 6.6 D (6.3-8.2) g/dL Albumin 2.4 L (3.9-5) g/dL Calcium panel 05/02/18 Range/Units 05:07 Calcium 8.2 L (8.4-10.2) mg/dL Albumin 2.4 L (3.9-5) g/dL Pituitary panel 05/02/18 Range/Units 05:07 Sodium 135 L (137-145) mmol/L Potassium 3.9 (3.6-5.0) mmol/L Chloride 100.4 (98-107) mmol/L Carbon Dioxide 24 (22-30) mmol/L BUN 18 H (7-17) mg/dL Creatinine 0.8 (0.7-1.2) mg/dL Glucose 83 (65-100) mg/dL Calcium 8.2 L (8.4-10.2) mg/dL Adrenal panel 05/02/18 Range/Units 05:07 Sodium 135 L (137-145) mmol/L Potassium 3.9 (3.6-5.0) mmol/L Chloride 100.4 (98-107) mmol/L Carbon Dioxide 24 (22-30) mmol/L BUN 18 H (7-17) mg/dL Creatinine 0.8 (0.7-1.2) mg/dL Glucose 83 (65-100) mg/dL Calcium 8.2 L (8.4-10.2) mg/dL Total Bilirubin 0.30 (0.1-1.2) mg/dL AST 23 (5-40) units/L ALT 29 (7-56) units/L Alkaline Phosphatase 165 H (35-129) units/L Total Protein 6.6 D (6.3-8.2) g/dL Albumin 2.4 L (3.9-5) g/dL
[2018-05-02] MEDS: HALFPRIN EC PO SCH (10:22)
[2018-05-02] MEDS: PEPCID PO SCH ×2 (10:22→22:23)
[2018-05-02] MEDS: SODIUM CHLORIDE FLUSH SYRINGE 10 ML IV SCH ×2 (10:23→22:23)
[2018-05-02] MEDS: GLUCOTROL PO SCH ×2 (10:26→18:40)
[2018-05-02] MEDS: NEURONTIN PO SCH ×3 (10:27→22:32)
[2018-05-02] MEDS: ZESTRIL PO SCH (10:27)
[2018-05-02] MEDS: GLUCOPHAGE PO SCH ×2 (10:27→18:40)
[2018-05-02] MEDS: HCTZ PO SCH (10:28)
[2018-05-02] MEDS ORDERED: MORPHINE IV ONE (13:21)
[2018-05-02] MEDS: DILAUDID IV PRN (13:39)
--- NOTE | 2018-05-02 14:11 | Procedure Note ---
Date of procedure: 05/02/18 Pre-op diagnosis: arreola grade 3 diabetic ulcer with abscess Post-op diagnosis: same Procedure: Open Incision and drainage of right diabetic foot abscess with excisional debridement of wound Findings: Consent obtained for procedure. Plantar aspect of right foot prepped with betadine in sterile fashion. Time out performed. Skin anesthetized with 1% lidocaine - approximately 6 cc used. Using a 15 blade the skin was opened to ext end the wound in the anterior and posterior direction. The wound was probed with a gloved finger and multiple loculations were broken up. There was drainage of pus. Cultures were obtained. The callus surrounding the wound was excised using foreceps and scissors. There was bleeding from the wound edges and wound bed which was controlled adequately with pressure. The wound extended through the subcutaneous tissue and devitalized subcutaneous tissue was debrided using scissors and foreceps. The abscess cavity probed approximately 3 cm in the posterior direction and 2 cm in the anterior direction. The abscess cavity measured approximately 8 cm x 5 cm. The preprocedure wound measurements were 1.5X1X3. The post procedure wound measurement is 6 cm x 4cm x 3.1 cm. The wound was examined and irrigated with saline and hemostasis ensured. The wound was packed with 1 piece of kerlix moistened with saline. This was covered with 4x4 gauze, abd pads, and wrapped with kerlix. Secured with tape. The patient tolerated the procedure well. All sharps were disposed of appropriately. Anesthesia: local Surgeon: ROGELIO SNOWDEN Estimated blood loss: minimal Pathology: list (wound culture) Specimen disposition: to lab Condition: stable Disposition: PACU
--- NOTE | 2018-05-02 15:19 | Progress Note ---
Assessment and Plan Assessment and plan: Patient is a 58 yo Black woman with a history of NIDDM with neuropathy on gabapentin, hypertension and dyslipidemia who presents to [facility] ED with right foot pains on the ball of her foot that started about a week ago. Now, she is having severe pains, difficulty ambulating and foul ordor with drainage. She just moved to [place] about 1 week ago from [place] -Sepsis from Right foot infection with abscess s/p excisional debridement: following blood and wound culture, MRI foot ruled out osteomyelitis, Switch antibiotics to cefepime, Flagyl and vancomycin -Right foot cellulitis: treat with abx, ID is following -Poorly controlled DM: SSI -Diabetic neuropathy: continue gabapentin History Interval history: Patient was seen and examined. Follow-up on current diagnosis right plantar foot infection. Overnight uneventful. Patient denies any chest pain, shortness breath, nausea/vomiting or severe headaches. Imaging, nursing note, chart, labs and old chart reviewed. Discussed with patient. Hospitalist Physical - Physical exam Narrative exam: Gen: WDWN, NAD, Awake, Alert, Orientated HEENT: NCAT, EOMI, PERRL, OP Clear Neck: supple, no adenopathy, no thyromegaly, no JVD CVS/Heart: RRR, normal S1S2, pulses present bilaterally Chest/Lungs: CTA B, Symmetrical chest expansion, good air entry bilaterally GI/Abdomen: soft, NTND, good bowel sounds, no guarding or rebound /Bladder: no suprapubic tenderness, no CVA or paraspinal tenderness Extermity/Skin: under right big toe there is a foul smelling ulcer MSK: FROM x 4 Neuro: CN 2-12 grossly intact, no new focal deficits Psych: calm - Constitutional Vitals: Temp Pulse Resp BP Pulse Ox 99.1 F 91 H 18 106/57 94 05/02/18 11:49 05/02/18 11:49 05/02/18 11:49 05/02/18 11:49 05/02/18 11:49 Results - Labs CBC & Chem 7: 05/02/18 05:07 05/02/18 05:07 Labs: Laboratory Last Values WBC 17.8 K/mm3 (4.5-11.0) H 05/02/18 05:07 RBC 3.75 M/mm3 (3.65-5.03) 05/02/18 05:07 Hgb 9.5 gm/dl (10.1-14.3) L 05/02/18 05:07 Hct 29.2 % (30.3-42.9) L 05/02/18 05:07 MCV 78 fl (79-97) L 05/02/18 05:07 MCH 26 pg (28-32) L 05/02/18 05:07 MCHC 33 % (30-34) 05/02/18 05:07 RDW 13.8 % (13.2-15.2) 05/02/18 05:07 Plt Count 354 K/mm3 (140-440) 05/02/18 05:07 Lymph % (Auto) 11.7 % (13.4-35.0) L 05/02/18 05:07 [place] % (Auto) 8.8 % (0.0-7.3) H 05/02/18 05:07 Eos % (Auto) 1.1 % (0.0-4.3) 05/02/18 05:07 Baso % (Auto) 0.4 % (0.0-1.8) 05/02/18 05:07 Lymph # 2.1 K/mm3 (1.2-5.4) 05/02/18 05:07 [place] # 1.6 K/mm3 (0.0-0.8) H 05/02/18 05:07 Eos # 0.2 K/mm3 (0.0-0.4) 05/02/18 05:07 Baso # 0.1 K/mm3 (0.0-0.1) 05/02/18 05:07 Add Manual Diff Complete 04/30/18 09:44 Total Counted 100 04/30/18 09:44 Seg Neutrophils % 78.0 % (40.0-70.0) H 05/02/18 05:07 Seg Neuts % (Manual) 79.0 % (40.0-70.0) H 04/30/18 09:44 Band Neutrophils % 3.0 % 04/30/18 09:44 Lymphocytes % (Manual) 9.0 % (13.4-35.0) L 04/30/18 09:44 Reactive Lymphs % (Man) 0 % 04/30/18 09:44 Monocytes % (Manual) 9.0 % (0.0-7.3) H 04/30/18 09:44 Eosinophils % (Manual) 0 % (0.0-4.3) 04/30/18 09:44 Basophils % (Manual) 0 % (0.0-1.8) 04/30/18 09:44 Metamyelocytes % 0 % 04/30/18 09:44 Myelocytes % 0 % 04/30/18 09:44 Promyelocytes % 0 % 04/30/18 09:44 Blast Cells % 0 % 04/30/18 09:44 Nucleated RBC % Not Reportable 04/30/18 09:44 Seg Neutrophils # 13.9 K/mm3 (1.8-7.7) H 05/02/18 05:07 Seg Neutrophils # Man 17.1 K/mm3 (1.8-7.7) H 04/30/18 09:44 Band Neutrophils # 0.6 K/mm3 04/30/18 09:44 Lymphocytes # (Manual) 1.9 K/mm3 (1.2-5.4) 04/30/18 09:44 Abs React Lymphs (Man) 0.0 K/mm3 04/30/18 09:44 Monocytes # (Manual) 1.9 K/mm3 (0.0-0.8) H 04/30/18 09:44 Eosinophils # (Manual) 0.0 K/mm3 (0.0-0.4) 04/30/18 09:44 Basophils # (Manual) 0.0 K/mm3 (0.0-0.1) 04/30/18 09:44 Metamyelocytes # 0.0 K/mm3 04/30/18 09:44 Myelocytes # 0.0 K/mm3 04/30/18 09:44 Promyelocytes # 0.0 K/mm3 04/30/18 09:44 Blast Cells # 0.0 K/mm3 04/30/18 09:44 WBC Morphology Not Reportable 04/30/18 09:44 Hypersegmented Neuts Not Reportable 04/30/18 09:44 Hyposegmented Neuts Not Reportable 04/30/18 09:44 Hypogranular Neuts Not Reportable 04/30/18 09:44 Smudge Cells Not Reportable 04/30/18 09:44 Toxic Granulation Not Reportable 04/30/18 09:44 Toxic Vacuolation Not Reportable 04/30/18 09:44 Dohle Bodies Not Reportable 04/30/18 09:44 Pelger-Huet Anomaly Not Reportable 04/30/18 09:44 Jb Rods Not Reportable 04/30/18 09:44 Platelet Estimate Not Reportable 04/30/18 09:44 Clumped Platelets Not Reportable 04/30/18 09:44 Plt Clumps, EDTA Not Reportable 04/30/18 09:44 Large Platelets Not Reportable 04/30/18 09:44 Giant Platelets Not Reportable 04/30/18 09:44 Platelet Satelliting Not Reportable 04/30/18 09:44 Plt Morphology Comment Not Reportable 04/30/18 09:44 RBC Morphology Not Reportable 04/30/18 09:44 Dimorphic RBCs Not Reportable 04/30/18 09:44 Polychromasia 1+ 04/30/18 09:44 Hypochromasia 1+ 04/30/18 09:44 Poikilocytosis Not Reportable 04/30/18 09:44 Anisocytosis 1+ 04/30/18 09:44 Microcytosis Not Reportable 04/30/18 09:44 Macrocytosis Not Reportable 04/30/18 09:44 Spherocytes Not Reportable 04/30/18 09:44 Pappenheimer Bodies Not Reportable 04/30/18 09:44 Sickle Cells Not Reportable 04/30/18 09:44 Target Cells Not Reportable 04/30/18 09:44 Tear Drop Cells Not Reportable 04/30/18 09:44 Ovalocytes Not Reportable 04/30/18 09:44 Helmet Cells Not Reportable 04/30/18 09:44 [place] Bodies Not Reportable 04/30/18 09:44 [place] Rings Not Reportable 04/30/18 09:44 [place] Cells Not Reportable 04/30/18 09:44 Bite Cells Not Reportable 04/30/18 09:44 Crenated Cell Not Reportable 04/30/18 09:44 Elliptocytes Not Reportable 04/30/18 09:44 Acanthocytes (Spur) Not Reportable 04/30/18 09:44 Rouleaux Not Reportable 04/30/18 09:44 Hemoglobin C Crystals Not Reportable 04/30/18 09:44 Schistocytes Not Reportable 04/30/18 09:44 Malaria parasites Not Reportable 04/30/18 09:44 Kevin Bodies Not Reportable 04/30/18 09:44 Hem Pathologist Commnt No 04/30/18 09:44 VBG pH 7.360 (7.320-7.420) 04/30/18 09:44 Sodium 135 mmol/L (137-145) L 05/02/18 05:07 Potassium 3.9 mmol/L (3.6-5.0) 05/02/18 05:07 Chloride 100.4 mmol/L (98-107) 05/02/18 05:07 Carbon Dioxide 24 mmol/L (22-30) 05/02/18 05:07 Anion Gap 15 mmol/L 05/02/18 05:07 BUN 18 mg/dL (7-17) H 05/02/18 05:07 Creatinine 0.8 mg/dL (0.7-1.2) 05/02/18 05:07 Estimated GFR > 60 ml/min 05/02/18 05:07 BUN/Creatinine Ratio 23 % 05/02/18 05:07 Glucose 83 mg/dL (65-100) 05/02/18 05:07 POC Glucose 133 (70-105) H 05/02/18 11:58 Hemoglobin A1c 11.7 % (4-6) H 05/01/18 00:35 Lactic Acid 1.10 mmol/L (0.7-2.0) 04/30/18 13:00 Calcium 8.2 mg/dL (8.4-10.2) L 05/02/18 05:07 Total Bilirubin 0.30 mg/dL (0.1-1.2) 05/02/18 05:07 AST 23 units/L (5-40) 05/02/18 05:07 ALT 29 units/L (7-56) 05/02/18 05:07 Alkaline Phosphatase 165 units/L (35-129) H 05/02/18 05:07 Total Protein 6.6 g/dL (6.3-8.2) D 05/02/18 05:07 Albumin 2.4 g/dL (3.9-5) L 05/02/18 05:07 Albumin/Globulin Ratio 0.6 % 05/02/18 05:07
[2018-05-02] MEDS: TYLENOL PO PRN (18:40)
[2018-05-02] MEDS: VANCOMYCIN 1,250 MG in NACL 0.9% 250ML 250 ML IV SCH ×2 (18:46)
[2018-05-02] MEDS: LOVENOX SUB-Q SCH (22:21)
[2018-05-02] MEDS: PRAVACHOL PO SCH (22:22)
[2018-05-03 00:40] LABS: Hematocrit 32.4 % (30.3-42.9); Hemoglobin 10.1 gm/dl (10.1-14.3); Mean Corpuscular HGB Conc 31 % (30-34); Mean Corpuscular Volume 80 fl (79-97); Platelet Count 355 K/mm3 (140-440); Red Blood Count 4.06 M/mm3 (3.65-5.03); Red Cell Distribution Width 13.9 % (13.2-15.2)
[2018-05-03] MEDS: NEURONTIN PO SCH ×3 (02:30→17:24)
[2018-05-03] MEDS: VANCOMYCIN 1,250 MG in NACL 0.9% 250ML 250 ML IV SCH ×2 (02:33→12:00)
[2018-05-03 03:52] LABS: Band Neutrophils # (Manual) 1.1 K/mm3; Basophils % (Manual) 0 % (0.0-1.8); Eosinophils % (Manual) 0 % (0.0-4.3); Ovalocytes 1+; Stomatocytes Rare; Target Cells Rare; Total Cells Counted 100
[2018-05-03] MEDS: FLAGYL 500 MG/100 ML 500 MG/100 ML BAG IV SCH (05:59)
[2018-05-03] MEDS: MAXIPIME/NS 2 GM/100 ML 2 GM/100 ML BAG IV SCH (05:59)
[2018-05-03] MEDS: TYLENOL PO PRN ×2 (06:44→15:02)
[2018-05-03] MEDS: GLUCOTROL PO SCH ×2 (08:22→17:36)
[2018-05-03] MEDS: GLUCOPHAGE PO SCH ×2 (08:22→17:35)
[2018-05-03] MEDS: HumaLOG SUB-Q SCH ×4 (08:22→22:11)
--- NOTE | 2018-05-03 09:36 | Progress Note ---
Assessment and Plan Cultures: 05/08/2018 blood culture: No growth thus far 04/30/2018 wound culture: Staph Aureus A/P: 58-year-old female with hypertension, diabetes, peripheral neuropathy related to diabetes, hyperlipidemia. Admitted with: 1) Sepsis Continuing, Leukocytosis, spiking fevers. secondary to right foot diabetic foot ulcer infected with associated cellulitis: s/p open Incision and drainage of right diabetic foot abscess with excisional debridement of wound, 05/02/18. Start ceftriaxone. 2) Diabetes mellitus type 2 uncontrolled: Recommend tight glycemic control. 3) Diabetic neuropathy: high risk for osteomyelitis. + Purulent drainage today, I & D at bedside by Dr Crockett. MRI results show plantar forefoot skin ulcer. No evidence of osteomyelitis or soft tissue abscess. Will treat for cellulitis. Wound Culture grew staph aureus. Discontinue cefepime and flagyl, Continue vancomycin. Recs: Discontnue Cefepime 2 gms IV every 8 hours Disontinue Flagyl 500mg IV every 8 hours, Continue Vancomycin 1250 mg IV every 12 hours, D3 Start Ceftriaxone 2gms every 24 hours Follow-up blood and wound cultures to help de-escalate antibiotics Anticipate discharge on PO Abx once clinically improving. 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 [facility] M: [phone] O:[phone] Subjective Date of service: 05/03/18 Interval history: Patient seen and examined. Denied generalized pain or SOB. Stated that she continues to feel feverish. Nurses notes, labs and reports reviewed, discussed with patient. Objective - Exam Narrative Exam: Constitutional: Alert, cooperative. No acute distress Head, Ears, Nose: Normocephalic, atraumatic. External ears, nose normal Eyes: Conjunctivae/corneas clear. No icterus. No ptosis. Neck: Supple, no meningeal signs Oral: dentition missing teeth, no thrush Cardiovascular: S1, S2 normal. Respiratory: Good air entry, clear to auscultation bilaterally GI: Soft, non-tender; bowel sounds normal. No peritoneal signs Musculoskeletal: right foot in dressing, , + right plantar ulcer+, + dressing, no drainage observed Skin: No rash or abscess Hem/Lymphatic: No palpable cervical or supraclavicular nodes. No lymphangitis Psych: Mood ok. Affect normal Neurological: Awake, alert, oriented. peripheral neuropathy + - Constitutional Vitals: Vital Signs Temp Pulse Resp BP Pulse Ox 99.5 F 86 20 108/60 94 05/03/18 08:12 05/03/18 08:12 05/03/18 08:12 05/03/18 08:12 05/03/18 08:12 Temperature -Last 24 Hours Temperature 99.5 F Temperature 99.0 F Temperature 102.4 F Temperature 99.1 F - Labs CBC & Chem 7: 05/03/18 00:19 05/02/18 05:07 Labs: Abnormal lab results 05/02/18 05/02/18 05/03/18 Range/Units 11:58 22:11 00:19 WBC 22.4 H (4.5-11.0) K/mm3 MCH 25 L (28-32) pg Seg Neuts % (Manual) 79.0 H (40.0-70.0) % Lymphocytes % (Manual) 10.0 L (13.4-35.0) % Seg Neutrophils # Man 17.7 H (1.8-7.7) K/mm3 Monocytes # (Manual) 1.3 H (0.0-0.8) K/mm3 POC Glucose 133 H 59 L (70-105) 05/03/18 Range/Units 08:07 WBC (4.5-11.0) K/mm3 MCH (28-32) pg Seg Neuts % (Manual) (40.0-70.0) % Lymphocytes % (Manual) (13.4-35.0) % Seg Neutrophils # Man (1.8-7.7) K/mm3 Monocytes # (Manual) (0.0-0.8) K/mm3 POC Glucose 63 L (70-105)
[2018-05-03] MEDS: HALFPRIN EC PO SCH (10:44)
[2018-05-03] MEDS: PEPCID PO SCH ×2 (10:44→22:13)
[2018-05-03] MEDS: HCTZ PO SCH (10:45)
[2018-05-03] MEDS: SODIUM CHLORIDE FLUSH SYRINGE 10 ML IV SCH ×2 (10:45→22:12)
[2018-05-03] MEDS: ZESTRIL PO SCH (10:45)
[2018-05-03] MEDS: DAKIN'S HALF STRENGTH TP SCH (13:00)
--- NOTE | 2018-05-03 13:10 | Progress Note ---
Assessment and Plan 58 yo F with 1. infected diabetic R foot ulcer s/p incision and drainage and excisional debridement, POD 1 2. poorly controlled DM 3. sepsis due to #1 MRI R foot - no osteomyelitis or soft tissue abscess Plan: 1. diabetic diet 2. strict glucose control. Hb A1C is 11.7 3. wound care - will do dakins BID. 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 c/w abx per ID 5. offloading of right foot. 6. follow up cultures 7. trend WBC and monitor for additional fevers 8. d/w case management - will need helping hands application to follow up in wound care center and outpatient wound vac. Will follow up on Sunday. If patient's wound worsens, will plan for [place] debridement. Pt understands the plan. Will keep NPO p [place] on Sunday in case we will be proceeding to [place] Thank you, please call with questions Subjective Date of service: 05/03/18 Narrative: Pt seen and examined. Feels cold. fever of 102.4 yesterday evening. Afebrile since. No n/v, cp, sob. Minimal pain in right foot. Objective Vital Signs - 12hr 05/03/18 05/03/18 08:12 12:30 Temperature 99.5 F 99.4 F Pulse Rate 86 88 Respiratory 20 18 Rate Blood Pressure 108/60 133/78 O2 Sat by Pulse 94 95 Oximetry - General physical appearance Narrative Exam: Gen; AAOx3. NAD CV: s1, s2+ resp: even and unlabored Ext; R foot wound - 1 piece of packing removed. Wound bed with slough which was removed using scissors. + purulent drainage from 12 oclock position expressed. Wound probed and no loculations felt and no additional purulent drainage. Wound bed inflamed but pink with minimal slough. - Labs 05/03/18 00:19 05/02/18 05:07
--- NOTE | 2018-05-03 14:36 | Progress Note ---
Assessment and Plan Assessment and plan: Patient is a 58 yo Black woman with a history of NIDDM with neuropathy on gabapentin, hypertension and dyslipidemia who presents to [facility] ED with right foot pains on the ball of her foot that started about a week ago. Now, she is having severe pains, difficulty ambulating and foul ordor with drainage. She just moved to [place] about 1 week ago from [place] -Sepsis from Right foot infection with abscess s/p excisional debridement: following blood and wound culture, MRI foot ruled out osteomyelitis, Switch antibiotics to cefepime, Flagyl and vancomycin -Right foot cellulitis: treat with abx, ID is following -Poorly controlled DM: SSI -Diabetic neuropathy: continue gabapentin Dispo: continue inpatient care, still spiking fevers, wound culture growing Staph aureus, await finalization. History Interval history: Patient was seen and examined. Follow-up on current diagnosis right plantar foot infection. Overnight uneventful. Patient denies any chest pain, shortness breath, nausea/vomiting or severe headaches. Imaging, nursing note, chart, labs and old chart reviewed. Discussed with patient. Hospitalist Physical - Physical exam Narrative exam: Gen: WDWN, NAD, Awake, Alert, Orientated HEENT: NCAT, EOMI, PERRL, OP Clear Neck: supple, no adenopathy, no thyromegaly, no JVD CVS/Heart: RRR, normal S1S2, pulses present bilaterally Chest/Lungs: CTA B, Symmetrical chest expansion, good air entry bilaterally GI/Abdomen: soft, NTND, good bowel sounds, no guarding or rebound /Bladder: no suprapubic tenderness, no CVA or paraspinal tenderness Extermity/Skin: under right big toe there is a foul smelling ulcer MSK: FROM x 4 Neuro: CN 2-12 grossly intact, no new focal deficits Psych: calm - Constitutional Vitals: Temp Pulse Resp BP Pulse Ox 99.4 F 88 18 133/78 95 05/03/18 12:30 05/03/18 12:30 05/03/18 12:30 05/03/18 12:30 05/03/18 12:30 Results - Labs CBC & Chem 7: 05/03/18 00:19 05/02/18 05:07 Labs: Laboratory Last Values WBC 22.4 K/mm3 (4.5-11.0) H 05/03/18 00:19 RBC 4.06 M/mm3 (3.65-5.03) 05/03/18 00:19 Hgb 10.1 gm/dl (10.1-14.3) 05/03/18 00:19 Hct 32.4 % (30.3-42.9) 05/03/18 00:19 MCV 80 fl (79-97) 05/03/18 00:19 MCH 25 pg (28-32) L 05/03/18 00:19 MCHC 31 % (30-34) 05/03/18 00:19 RDW 13.9 % (13.2-15.2) 05/03/18 00:19 Plt Count 355 K/mm3 (140-440) 05/03/18 00:19 Lymph % (Auto) 11.7 % (13.4-35.0) L 05/02/18 05:07 [place] % (Auto) 8.8 % (0.0-7.3) H 05/02/18 05:07 Eos % (Auto) 1.1 % (0.0-4.3) 05/02/18 05:07 Baso % (Auto) 0.4 % (0.0-1.8) 05/02/18 05:07 Lymph # 2.1 K/mm3 (1.2-5.4) 05/02/18 05:07 [place] # 1.6 K/mm3 (0.0-0.8) H 05/02/18 05:07 Eos # 0.2 K/mm3 (0.0-0.4) 05/02/18 05:07 Baso # 0.1 K/mm3 (0.0-0.1) 05/02/18 05:07 Add Manual Diff Complete 05/03/18 00:19 Total Counted 100 05/03/18 00:19 Seg Neutrophils % 78.0 % (40.0-70.0) H 05/02/18 05:07 Seg Neuts % (Manual) 79.0 % (40.0-70.0) H 05/03/18 00:19 Band Neutrophils % 5.0 % 05/03/18 00:19 Lymphocytes % (Manual) 10.0 % (13.4-35.0) L 05/03/18 00:19 Reactive Lymphs % (Man) 0 % 02/15/19 00:19 Monocytes % (Manual) 6.0 % (0.0-7.3) 05/03/18 00:19 Eosinophils % (Manual) 0 % (0.0-4.3) 05/03/18 00:19 Basophils % (Manual) 0 % (0.0-1.8) 05/03/18 00:19 Metamyelocytes % 0 % 05/03/18 00:19 Myelocytes % 0 % 05/03/18 00:19 Promyelocytes % 0 % 05/03/18 00:19 Blast Cells % 0 % 05/03/18 00:19 Nucleated RBC % Not Reportable 05/03/18 00:19 Seg Neutrophils # 13.9 K/mm3 (1.8-7.7) H 05/02/18 05:07 Seg Neutrophils # Man 17.7 K/mm3 (1.8-7.7) H 05/03/18 00:19 Band Neutrophils # 1.1 K/mm3 05/03/18 00:19 Lymphocytes # (Manual) 2.2 K/mm3 (1.2-5.4) 05/03/18 00:19 Abs React Lymphs (Man) 0.0 K/mm3 05/03/18 00:19 Monocytes # (Manual) 1.3 K/mm3 (0.0-0.8) H 05/03/18 00:19 Eosinophils # (Manual) 0.0 K/mm3 (0.0-0.4) 05/03/18 00:19 Basophils # (Manual) 0.0 K/mm3 (0.0-0.1) 05/03/18 00:19 Metamyelocytes # 0.0 K/mm3 05/03/18 00:19 Myelocytes # 0.0 K/mm3 05/03/18 00:19 Promyelocytes # 0.0 K/mm3 05/03/18 00:19 Blast Cells # 0.0 K/mm3 05/03/18 00:19 WBC Morphology Not Reportable 05/03/18 00:19 Hypersegmented Neuts Not Reportable 05/03/18 00:19 Hyposegmented Neuts Not Reportable 05/03/18 00:19 Hypogranular Neuts Not Reportable 05/03/18 00:19 Smudge Cells Not Reportable 05/03/18 00:19 Toxic Granulation Not Reportable 05/03/18 00:19 Toxic Vacuolation Not Reportable 05/03/18 00:19 Dohle Bodies Not Reportable 05/03/18 00:19 Pelger-Huet Anomaly Not Reportable 05/03/18 00:19 Jb Rods Not Reportable 05/03/18 00:19 Platelet Estimate Appears normal 05/03/18 00:19 Clumped Platelets Not Reportable 05/03/18 00:19 Plt Clumps, EDTA Not Reportable 05/03/18 00:19 Large Platelets Not Reportable 05/03/18 00:19 Giant Platelets Not Reportable 05/03/18 00:19 Platelet Satelliting Not Reportable 05/03/18 00:19 Plt Morphology Comment Not Reportable 05/03/18 00:19 RBC Morphology Not Reportable 05/03/18 00:19 Dimorphic RBCs Not Reportable 05/03/18 00:19 Polychromasia Not Reportable 05/03/18 00:19 Hypochromasia Not Reportable 05/03/18 00:19 Poikilocytosis Not Reportable 05/03/18 00:19 Anisocytosis Not Reportable 05/03/18 00:19 Microcytosis Not Reportable 05/03/18 00:19 Macrocytosis Not Reportable 05/03/18 00:19 Spherocytes Not Reportable 05/03/18 00:19 Pappenheimer Bodies Not Reportable 05/03/18 00:19 Sickle Cells Not Reportable 05/03/18 00:19 Target Cells Rare 05/03/18 00:19 Tear Drop Cells Not Reportable 05/03/18 00:19 Ovalocytes 1+ 05/03/18 00:19 Stomatocytes Rare 05/03/18 00:19 Helmet Cells Not Reportable 05/03/18 00:19 [place] Bodies Not Reportable 05/03/18 00:19 [place] Rings Not Reportable 05/03/18 00:19 Rk Cells Not Reportable 05/03/18 00:19 Bite Cells Not Reportable 05/03/18 00:19 Crenated Cell Not Reportable 05/03/18 00:19 Elliptocytes Not Reportable 05/03/18 00:19 Acanthocytes (Spur) Not Reportable 05/03/18 00:19 Rouleaux Not Reportable 05/03/18 00:19 Hemoglobin C Crystals Not Reportable 05/03/18 00:19 Schistocytes Not Reportable 05/03/18 00:19 [place] parasites Not Reportable 05/03/18 00:19 Kevin Bodies Not Reportable 05/03/18 00:19 Hem Pathologist Commnt No 05/03/18 00:19 VBG pH 7.360 (7.320-7.420) 04/30/18 09:44 Sodium 135 mmol/L (137-145) L 05/02/18 05:07 Potassium 3.9 mmol/L (3.6-5.0) 05/02/18 05:07 Chloride 100.4 mmol/L (98-107) 05/02/18 05:07 Carbon Dioxide 24 mmol/L (22-30) 05/02/18 05:07 Anion Gap 15 mmol/L 05/02/18 05:07 BUN 18 mg/dL (7-17) H 05/02/18 05:07 Creatinine 0.8 mg/dL (0.7-1.2) 05/02/18 05:07 Estimated GFR > 60 ml/min 05/02/18 05:07 BUN/Creatinine Ratio 23 % 05/02/18 05:07 Glucose 83 mg/dL (65-100) 05/02/18 05:07 POC Glucose 97 (70-105) 05/03/18 12:31 Hemoglobin A1c 11.7 % (4-6) H 05/01/18 00:35 Lactic Acid 1.10 mmol/L (0.7-2.0) 04/30/18 13:00 Calcium 8.2 mg/dL (8.4-10.2) L 05/02/18 05:07 Total Bilirubin 0.30 mg/dL (0.1-1.2) 05/02/18 05:07 AST 23 units/L (5-40) 05/02/18 05:07 ALT 29 units/L (7-56) 05/02/18 05:07 Alkaline Phosphatase 165 units/L (35-129) H 05/02/18 05:07 Total Protein 6.6 g/dL (6.3-8.2) D 05/02/18 05:07 Albumin 2.4 g/dL (3.9-5) L 05/02/18 05:07 Albumin/Globulin Ratio 0.6 % 05/02/18 05:07
[2018-05-03] MEDS: NACL 0.9% 1000 ML 1,000 ML IV SCH (17:25)
[2018-05-03] MEDS: ROCEPHIN/NS 2 GM/100 ML 2 GM/100 ML BAG IV SCH (17:25)
[2018-05-03] MEDS ORDERED: NACL 0.9% 500 ML 500 ML IV ONE (18:13)
[2018-05-03] MEDS: LOVENOX SUB-Q SCH (22:13)
[2018-05-03] MEDS: PRAVACHOL PO SCH (22:13)
[2018-05-04] MEDS: VANCOMYCIN 1,250 MG in NACL 0.9% 250ML 250 ML IV SCH ×2 (00:22→13:05)
[2018-05-04] MEDS: TYLENOL PO PRN ×3 (00:22→18:41)
[2018-05-04] MEDS: NEURONTIN PO SCH ×4 (00:23→23:33)
[2018-05-04] MEDS: DAKIN'S HALF STRENGTH TP SCH ×3 (00:30→21:32)
[2018-05-04 05:20] LABS: Hematocrit 28.1 % (30.3-42.9); Hemoglobin 8.9 gm/dl (10.1-14.3); Mean Corpuscular HGB Conc 32 % (30-34); Mean Corpuscular Volume 78 fl (79-97); Platelet Count 344 K/mm3 (140-440); Red Blood Count 3.59 M/mm3 (3.65-5.03); Red Cell Distribution Width 13.8 % (13.2-15.2)
[2018-05-04 05:25] LABS: BUN/Creatinine Ratio 15; Blood Urea Nitrogen 9 mg/dL (7-17); Calcium 8.1 mg/dL (8.4-10.2); Hemolysis Index 1
[2018-05-04] MEDS: NACL 0.9% 1000 ML 1,000 ML IV SCH ×2 (05:33→16:36)
[2018-05-04] MEDS: ROCEPHIN/NS 2 GM/100 ML 2 GM/100 ML BAG IV SCH (09:29)
[2018-05-04] MEDS: GLUCOPHAGE PO SCH ×2 (09:30→16:34)
[2018-05-04] MEDS: HCTZ PO SCH (09:30)
[2018-05-04] MEDS: ZESTRIL PO SCH (09:30)
[2018-05-04] MEDS: PEPCID PO SCH ×2 (09:31→21:27)
[2018-05-04] MEDS: HALFPRIN EC PO SCH (09:31)
[2018-05-04] MEDS: HumaLOG SUB-Q SCH ×4 (09:40→21:20)
[2018-05-04] MEDS: SODIUM CHLORIDE FLUSH SYRINGE 10 ML IV SCH ×2 (09:41→21:28)
[2018-05-04] MEDS: PERCOCET 5/325 PO PRN ×2 (12:30→21:27)
--- NOTE | 2018-05-04 13:02 | Progress Note ---
Assessment and Plan Cultures: 05/08/2018 blood culture: No growth thus far 04/30/2018 wound culture: MSSA, Group B Strep A/P: 58-year-old female with hypertension, diabetes, peripheral neuropathy related to diabetes, hyperlipidemia. Admitted with: 1) Sepsis: Leukocytosis, fevers secondary to right foot diabetic foot ulcer infected with associated cellulitis and superficial abscess: s/p open Incision and drainage of right diabetic foot abscess with excisional debridement of wound, 05/02/18. Cultures growing Group B Strep and MSSA. MRI results show plantar forefoot skin ulcer. No evidence of osteomyelitis or soft tissue abscess. 2) Diabetes mellitus type 2 uncontrolled: Recommend tight glycemic control. 3) Diabetic neuropathy: high risk for osteomyelitis. Recs: discontinued Ceftriaxone and Vancomycin started IV Cefazolin higher dose 2 gm q6 hrs MD [facility] C: [phone] O: [phone] F: [phone] Subjective Date of service: 05/04/18 Interval history: Reports nausea. Also with ongoing fevers. Right foot pain improving. Still has some drainage. Objective - Exam Narrative Exam: Physical Exam: Constitutional: Alert, cooperative. No acute distress Head, Ears, Nose: Normocephalic, atraumatic. External ears, nose normal Eyes: Conjunctivae/corneas clear. No icterus. No ptosis. Neck: Supple, no meningeal signs Oral: several missing teeth, no thrush Cardiovascular: S1, S2 normal. Respiratory: Good air entry, clear to auscultation bilaterally GI: Soft, non-tender; bowel sounds normal. No peritoneal signs Musculoskeletal: right foot in dressing with drainage from sole, there is swelling, redness and tenderness of the leg upto mid mo, Skin: No rash or abscess Hem/Lymphatic: No palpable cervical or supraclavicular nodes. No lymphangitis Psych: Mood ok. Affect normal Neurological: Awake, alert, oriented. peripheral neuropathy + - Constitutional Vitals: Vital Signs Temp Pulse Resp BP Pulse Ox 99.6 F 104 H 22 164/86 93 05/04/18 11:53 05/04/18 11:53 05/04/18 11:53 05/04/18 11:53 05/04/18 11:53 Temperature -Last 24 Hours Temperature 99.6 F Temperature 100.4 F Temperature 98.5 F Temperature 102.6 F Temperature 98.8 F Temperature 101.2 F - Labs CBC & Chem 7: 05/04/18 04:38 05/04/18 04:38 Labs: Abnormal lab results 05/03/18 05/04/18 05/04/18 Range/Units 21:31 04:38 04:38 WBC 22.2 H (4.5-11.0) K/mm3 RBC 3.59 L (3.65-5.03) M/mm3 Hgb 8.9 L (10.1-14.3) gm/dl Hct 28.1 L (30.3-42.9) % MCV 78 L (79-97) fl MCH 25 L (28-32) pg Sodium 134 L (137-145) mmol/L Creatinine 0.6 L (0.7-1.2) mg/dL Glucose 115 H (65-100) mg/dL POC Glucose 172 H (70-105) Calcium 8.1 L (8.4-10.2) mg/dL 05/04/18 05/04/18 Range/Units 08:05 11:57 WBC (4.5-11.0) K/mm3 RBC (3.65-5.03) M/mm3 Hgb (10.1-14.3) gm/dl Hct (30.3-42.9) % MCV (79-97) fl MCH (28-32) pg Sodium (137-145) mmol/L Creatinine (0.7-1.2) mg/dL Glucose (65-100) mg/dL POC Glucose 114 H 128 H (70-105) Calcium (8.4-10.2) mg/dL
[2018-05-04] MEDS: ceFAZolin 2 GM in NACL 0.9% 100 ML IV SCH ×2 (14:22→21:21)
--- NOTE | 2018-05-04 14:47 | Progress Note ---
Assessment and Plan Assessment and plan: Patient is a 58 yo Black woman with a history of NIDDM with neuropathy on gabapentin, hypertension and dyslipidemia who presents to [facility] ED with right foot pains on the ball of her foot that started about a week ago. Now, she is having severe pains, difficulty ambulating and foul ordor with drainage. She just moved to [place] about 1 week ago from [place] -Sepsis from Right foot infection with abscess s/p excisional debridement: following blood and wound culture, MRI foot ruled out osteomyelitis, Switch antibiotics to cefepime, Flagyl and vancomycin -Right foot cellulitis: treat with abx, ID is following -Poorly controlled DM: SSI -Diabetic neuropathy: continue gabapentin Dispo: continue inpatient care, still spiking fevers, wound culture- await finalization. History Interval history: Patient was seen and examined. Follow-up on current diagnosis right plantar foot infection. Overnight uneventful. Patient denies any chest pain, shortness breath, nausea/vomiting or severe headaches. Imaging, nursing note, chart, labs and old chart reviewed. Discussed with patient. Hospitalist Physical - Physical exam Narrative exam: Gen: WDWN, NAD, Awake, Alert, Orientated HEENT: NCAT, EOMI, PERRL, OP Clear Neck: supple, no adenopathy, no thyromegaly, no JVD CVS/Heart: RRR, normal S1S2, pulses present bilaterally Chest/Lungs: CTA B, Symmetrical chest expansion, good air entry bilaterally GI/Abdomen: soft, NTND, good bowel sounds, no guarding or rebound /Bladder: no suprapubic tenderness, no CVA or paraspinal tenderness Extermity/Skin: under right big toe there is a foul smelling ulcer MSK: FROM x 4 Neuro: CN 2-12 grossly intact, no new focal deficits Psych: calm - Constitutional Vitals: Temp Pulse Resp BP Pulse Ox 99.6 F 104 H 22 164/86 93 05/04/18 11:53 05/04/18 11:53 05/04/18 11:53 05/04/18 11:53 05/04/18 11:53 Results - Labs CBC & Chem 7: 05/04/18 04:38 05/04/18 04:38 Labs: Laboratory Last Values WBC 22.2 K/mm3 (4.5-11.0) H 05/04/18 04:38 RBC 3.59 M/mm3 (3.65-5.03) L 05/04/18 04:38 Hgb 8.9 gm/dl (10.1-14.3) L 05/04/18 04:38 Hct 28.1 % (30.3-42.9) L 05/04/18 04:38 MCV 78 fl (79-97) L 05/04/18 04:38 MCH 25 pg (28-32) L 05/04/18 04:38 MCHC 32 % (30-34) 05/04/18 04:38 RDW 13.8 % (13.2-15.2) 05/04/18 04:38 Plt Count 344 K/mm3 (140-440) 05/04/18 04:38 Lymph % (Auto) 11.7 % (13.4-35.0) L 05/02/18 05:07 [place] % (Auto) 8.8 % (0.0-7.3) H 05/02/18 05:07 Eos % (Auto) 1.1 % (0.0-4.3) 05/02/18 05:07 Baso % (Auto) 0.4 % (0.0-1.8) 05/02/18 05:07 Lymph # 2.1 K/mm3 (1.2-5.4) 05/02/18 05:07 [place] # 1.6 K/mm3 (0.0-0.8) H 05/02/18 05:07 Eos # 0.2 K/mm3 (0.0-0.4) 05/02/18 05:07 Baso # 0.1 K/mm3 (0.0-0.1) 05/02/18 05:07 Add Manual Diff Complete 05/03/18 00:19 Total Counted 100 05/03/18 00:19 Seg Neutrophils % 78.0 % (40.0-70.0) H 05/02/18 05:07 Seg Neuts % (Manual) 79.0 % (40.0-70.0) H 05/03/18 00:19 Band Neutrophils % 5.0 % 05/03/18 00:19 Lymphocytes % (Manual) 10.0 % (13.4-35.0) L 05/03/18 00:19 Reactive Lymphs % (Man) 0 % 05/03/18 00:19 Monocytes % (Manual) 6.0 % (0.0-7.3) 05/03/18 00:19 Eosinophils % (Manual) 0 % (0.0-4.3) 05/03/18 00:19 Basophils % (Manual) 0 % (0.0-1.8) 05/03/18 00:19 Metamyelocytes % 0 % 05/03/18 00:19 Myelocytes % 0 % 05/03/18 00:19 Promyelocytes % 0 % 05/03/18 00:19 Blast Cells % 0 % 05/03/18 00:19 Nucleated RBC % Not Reportable 05/03/18 00:19 Seg Neutrophils # 13.9 K/mm3 (1.8-7.7) H 05/02/18 05:07 Seg Neutrophils # Man 17.7 K/mm3 (1.8-7.7) H 05/03/18 00:19 Band Neutrophils # 1.1 K/mm3 05/03/18 00:19 Lymphocytes # (Manual) 2.2 K/mm3 (1.2-5.4) 05/03/18 00:19 Abs React Lymphs (Man) 0.0 K/mm3 05/03/18 00:19 Monocytes # (Manual) 1.3 K/mm3 (0.0-0.8) H 05/03/18 00:19 Eosinophils # (Manual) 0.0 K/mm3 (0.0-0.4) 05/03/18 00:19 Basophils # (Manual) 0.0 K/mm3 (0.0-0.1) 05/03/18 00:19 Metamyelocytes # 0.0 K/mm3 05/03/18 00:19 Myelocytes # 0.0 K/mm3 05/03/18 00:19 Promyelocytes # 0.0 K/mm3 05/03/18 00:19 Blast Cells # 0.0 K/mm3 05/03/18 00:19 WBC Morphology Not Reportable 05/03/18 00:19 Hypersegmented Neuts Not Reportable 05/03/18 00:19 Hyposegmented Neuts Not Reportable 05/03/18 00:19 Hypogranular Neuts Not Reportable 05/03/18 00:19 Smudge Cells Not Reportable 02/15/19 00:19 Toxic Granulation Not Reportable 05/03/18 00:19 Toxic Vacuolation Not Reportable 05/03/18 00:19 Dohle Bodies Not Reportable 05/03/18 00:19 Pelger-Huet Anomaly Not Reportable 05/03/18 00:19 Jb Rods Not Reportable 05/03/18 00:19 Platelet Estimate Appears normal 05/03/18 00:19 Clumped Platelets Not Reportable 05/03/18 00:19 Plt Clumps, EDTA Not Reportable 05/03/18 00:19 Large Platelets Not Reportable 05/03/18 00:19 Giant Platelets Not Reportable 05/03/18 00:19 Platelet Satelliting Not Reportable 05/03/18 00:19 Plt Morphology Comment Not Reportable 05/03/18 00:19 RBC Morphology Not Reportable 05/03/18 00:19 Dimorphic RBCs Not Reportable 05/03/18 00:19 Polychromasia Not Reportable 05/03/18 00:19 Hypochromasia Not Reportable 05/03/18 00:19 Poikilocytosis Not Reportable 05/03/18 00:19 Anisocytosis Not Reportable 05/03/18 00:19 Microcytosis Not Reportable 05/03/18 00:19 Macrocytosis Not Reportable 05/03/18 00:19 Spherocytes Not Reportable 05/03/18 00:19 Pappenheimer Bodies Not Reportable 05/03/18 00:19 Sickle Cells Not Reportable 05/03/18 00:19 Target Cells Rare 05/03/18 00:19 Tear Drop Cells Not Reportable 05/03/18 00:19 Ovalocytes 1+ 05/03/18 00:19 Stomatocytes Rare 05/03/18 00:19 Helmet Cells Not Reportable 05/03/18 00:19 [place] Bodies Not Reportable 05/03/18 00:19 [place] Rings Not Reportable 05/03/18 00:19 Rk Cells Not Reportable 05/03/18 00:19 Bite Cells Not Reportable 05/03/18 00:19 Crenated Cell Not Reportable 05/03/18 00:19 Elliptocytes Not Reportable 05/03/18 00:19 Acanthocytes (Spur) Not Reportable 05/03/18 00:19 Rouleaux Not Reportable 05/03/18 00:19 Hemoglobin C Crystals Not Reportable 05/03/18 00:19 Schistocytes Not Reportable 05/03/18 00:19 Malaria parasites Not Reportable 05/03/18 00:19 Kevin Bodies Not Reportable 05/03/18 00:19 Hem Pathologist Commnt No 05/03/18 00:19 VBG pH 7.360 (7.320-7.420) 04/30/18 09:44 Sodium 134 mmol/L (137-145) L 05/04/18 04:38 Potassium 3.6 mmol/L (3.6-5.0) 05/04/18 04:38 Chloride 99.9 mmol/L (98-107) 05/04/18 04:38 Carbon Dioxide 23 mmol/L (22-30) 05/04/18 04:38 Anion Gap 15 mmol/L 05/04/18 04:38 BUN 9 mg/dL (7-17) 05/04/18 04:38 Creatinine 0.6 mg/dL (0.7-1.2) L 05/04/18 04:38 Estimated GFR > 60 ml/min 05/04/18 04:38 BUN/Creatinine Ratio 15 % 05/04/18 04:38 Glucose 115 mg/dL (65-100) H 05/04/18 04:38 POC Glucose 128 (70-105) H 05/04/18 11:57 Hemoglobin A1c 11.7 % (4-6) H 05/01/18 00:35 Lactic Acid 1.10 mmol/L (0.7-2.0) 04/30/18 13:00 Calcium 8.1 mg/dL (8.4-10.2) L 05/04/18 04:38 Total Bilirubin 0.30 mg/dL (0.1-1.2) 05/02/18 05:07 AST 23 units/L (5-40) 05/02/18 05:07 ALT 29 units/L (7-56) 05/02/18 05:07 Alkaline Phosphatase 165 units/L (35-129) H 05/02/18 05:07 Total Protein 6.6 g/dL (6.3-8.2) D 05/02/18 05:07 Albumin 2.4 g/dL (3.9-5) L 05/02/18 05:07 Albumin/Globulin Ratio 0.6 % 05/02/18 05:07
[2018-05-04] MEDS ORDERED: NORMODYNE IV PRN (14:48)
[2018-05-04] MEDS: PRAVACHOL PO SCH (21:27)
[2018-05-04] MEDS: LOVENOX SUB-Q SCH (21:28)
[2018-05-05] MEDS: ceFAZolin 2 GM in NACL 0.9% 100 ML IV SCH ×4 (01:21→21:04)
[2018-05-05] MEDS: NACL 0.9% 1000 ML 1,000 ML IV SCH ×3 (05:05→21:04)
[2018-05-05 05:27] LABS: Hematocrit 30.3 % (30.3-42.9); Mean Corpuscular HGB Conc 33 % (30-34); Mean Corpuscular Volume 78 fl (79-97); Platelet Count 357 K/mm3 (140-440); Red Blood Count 3.87 M/mm3 (3.65-5.03)
[2018-05-05 05:40] LABS: BUN/Creatinine Ratio 12; Blood Urea Nitrogen 6 mg/dL (7-17); Calcium 8.7 mg/dL (8.4-10.2); Hemolysis Index 0
[2018-05-05] MEDS: HumaLOG SUB-Q SCH ×4 (08:12→23:24)
[2018-05-05] MEDS: GLUCOPHAGE PO SCH ×2 (08:13→16:38)
[2018-05-05] MEDS: NEURONTIN PO SCH ×3 (08:21→23:41)
[2018-05-05] MEDS: HCTZ PO SCH (10:13)
[2018-05-05] MEDS: ZESTRIL PO SCH (10:13)
[2018-05-05] MEDS: HALFPRIN EC PO SCH (10:13)
[2018-05-05] MEDS: PEPCID PO SCH ×2 (10:13→21:06)
[2018-05-05] MEDS: DAKIN'S HALF STRENGTH TP SCH ×2 (10:14→21:09)
[2018-05-05] MEDS: SODIUM CHLORIDE FLUSH SYRINGE 10 ML IV SCH ×2 (10:14→21:09)
[2018-05-05] MEDS: TYLENOL PO PRN (12:24)
--- NOTE | 2018-05-05 15:40 | Progress Note ---
Assessment and Plan Assessment and plan: Patient is a 58 yo Black woman with a history of NIDDM with neuropathy on gabapentin, hypertension and dyslipidemia who presents to [facility] ED with right foot pains on the ball of her foot that started about a week ago. Now, she is having severe pains, difficulty ambulating and foul ordor with drainage. She just moved to [place] about 1 week ago from [place] Sepsis from Right foot infection with abscess s/p excisional debridement: following blood and wound culture, MRI foot ruled out osteomyelitis, Switch antibiotics to cefepime, Flagyl and vancomycin -Right foot cellulitis: treat with abx, ID is following -Poorly controlled DM: SSI -Diabetic neuropathy: continue gabapentin Dispo: continue inpatient care, still spiking fevers, wound culture finalized==>mssa, await ID final recommendation, home in 1-2 days. History Interval history: Patient was seen and examined. Follow-up on current diagnosis right plantar foot infection. Overnight uneventful. Patient denies any chest pain, shortness breath, nausea/vomiting or severe headaches. Imaging, nursing note, chart, labs and old chart reviewed. Discussed with patient. Hospitalist Physical - Physical exam Narrative exam: Gen: WDWN, NAD, Awake, Alert, Orientated HEENT: NCAT, EOMI, PERRL, OP Clear Neck: supple, no adenopathy, no thyromegaly, no JVD CVS/Heart: RRR, normal S1S2, pulses present bilaterally Chest/Lungs: CTA B, Symmetrical chest expansion, good air entry bilaterally GI/Abdomen: soft, NTND, good bowel sounds, no guarding or rebound /Bladder: no suprapubic tenderness, no CVA or paraspinal tenderness Extermity/Skin: under right big toe there is a foul smelling ulcer MSK: FROM x 4 Neuro: CN 2-12 grossly intact, no new focal deficits Psych: calm - Constitutional Vitals: Temp Pulse Resp BP Pulse Ox 99.7 F H 87 18 135/70 93 05/05/18 12:23 05/05/18 12:23 05/05/18 12:23 05/05/18 12:23 05/05/18 12:23 Results - Labs CBC & Chem 7: 05/05/18 05:03 05/05/18 05:03 Labs: Laboratory Last Values WBC 21.7 K/mm3 (4.5-11.0) H 05/05/18 05:03 RBC 3.87 M/mm3 (3.65-5.03) 05/05/18 05:03 Hgb 10.0 gm/dl (10.1-14.3) L 05/05/18 05:03 Hct 30.3 % (30.3-42.9) 05/05/18 05:03 MCV 78 fl (79-97) L 05/05/18 05:03 MCH 26 pg (28-32) L 05/05/18 05:03 MCHC 33 % (30-34) 05/05/18 05:03 RDW 14.0 % (13.2-15.2) 05/05/18 05:03 Plt Count 357 K/mm3 (140-440) 05/05/18 05:03 Lymph % (Auto) 11.7 % (13.4-35.0) L 05/02/18 05:07 [place] % (Auto) 8.8 % (0.0-7.3) H 05/02/18 05:07 Eos % (Auto) 1.1 % (0.0-4.3) 05/02/18 05:07 Baso % (Auto) 0.4 % (0.0-1.8) 05/02/18 05:07 Lymph # 2.1 K/mm3 (1.2-5.4) 05/02/18 05:07 [place] # 1.6 K/mm3 (0.0-0.8) H 05/02/18 05:07 Eos # 0.2 K/mm3 (0.0-0.4) 05/02/18 05:07 Baso # 0.1 K/mm3 (0.0-0.1) 05/02/18 05:07 Add Manual Diff Complete 05/03/18 00:19 Total Counted 100 05/03/18 00:19 Seg Neutrophils % 78.0 % (40.0-70.0) H 05/02/18 05:07 Seg Neuts % (Manual) 79.0 % (40.0-70.0) H 05/03/18 00:19 Band Neutrophils % 5.0 % 05/03/18 00:19 Lymphocytes % (Manual) 10.0 % (13.4-35.0) L 05/03/18 00:19 Reactive Lymphs % (Man) 0 % 05/03/18 00:19 Monocytes % (Manual) 6.0 % (0.0-7.3) 05/03/18 00:19 Eosinophils % (Manual) 0 % (0.0-4.3) 05/03/18 00:19 Basophils % (Manual) 0 % (0.0-1.8) 05/03/18 00:19 Metamyelocytes % 0 % 05/03/18 00:19 Myelocytes % 0 % 05/03/18 00:19 Promyelocytes % 0 % 05/03/18 00:19 Blast Cells % 0 % 05/03/18 00:19 Nucleated RBC % Not Reportable 05/03/18 00:19 Seg Neutrophils # 13.9 K/mm3 (1.8-7.7) H 05/02/18 05:07 Seg Neutrophils # Man 17.7 K/mm3 (1.8-7.7) H 05/03/18 00:19 Band Neutrophils # 1.1 K/mm3 05/03/18 00:19 Lymphocytes # (Manual) 2.2 K/mm3 (1.2-5.4) 05/03/18 00:19 Abs React Lymphs (Man) 0.0 K/mm3 05/03/18 00:19 Monocytes # (Manual) 1.3 K/mm3 (0.0-0.8) H 05/03/18 00:19 Eosinophils # (Manual) 0.0 K/mm3 (0.0-0.4) 05/03/18 00:19 Basophils # (Manual) 0.0 K/mm3 (0.0-0.1) 05/03/18 00:19 Metamyelocytes # 0.0 K/mm3 05/03/18 00:19 Myelocytes # 0.0 K/mm3 05/03/18 00:19 Promyelocytes # 0.0 K/mm3 05/03/18 00:19 Blast Cells # 0.0 K/mm3 05/03/18 00:19 WBC Morphology Not Reportable 05/03/18 00:19 Hypersegmented Neuts Not Reportable 05/03/18 00:19 Hyposegmented Neuts Not Reportable 05/03/18 00:19 Hypogranular Neuts Not Reportable 05/03/18 00:19 Smudge Cells Not Reportable 05/03/18 00:19 Toxic Granulation Not Reportable 05/03/18 00:19 Toxic Vacuolation Not Reportable 05/03/18 00:19 Dohle Bodies Not Reportable 05/03/18 00:19 Pelger-Huet Anomaly Not Reportable 05/03/18 00:19 Jb Rods Not Reportable 05/03/18 00:19 Platelet Estimate Appears normal 05/03/18 00:19 Clumped Platelets Not Reportable 05/03/18 00:19 Plt Clumps, EDTA Not Reportable 05/03/18 00:19 Large Platelets Not Reportable 05/03/18 00:19 Giant Platelets Not Reportable 05/03/18 00:19 Platelet Satelliting Not Reportable 05/03/18 00:19 Plt Morphology Comment Not Reportable 05/03/18 00:19 RBC Morphology Not Reportable 05/03/18 00:19 Dimorphic RBCs Not Reportable 05/03/18 00:19 Polychromasia Not Reportable 05/03/18 00:19 Hypochromasia Not Reportable 05/03/18 00:19 Poikilocytosis Not Reportable 05/03/18 00:19 Anisocytosis Not Reportable 05/03/18 00:19 Microcytosis Not Reportable 05/03/18 00:19 Macrocytosis Not Reportable 05/03/18 00:19 Spherocytes Not Reportable 05/03/18 00:19 Pappenheimer Bodies Not Reportable 05/03/18 00:19 Sickle Cells Not Reportable 05/03/18 00:19 Target Cells Rare 05/03/18 00:19 Tear Drop Cells Not Reportable 05/03/18 00:19 Ovalocytes 1+ 05/03/18 00:19 Stomatocytes Rare 05/03/18 00:19 Helmet Cells Not Reportable 05/03/18 00:19 [place] Bodies Not Reportable 05/03/18 00:19 [place] Rings Not Reportable 05/03/18 00:19 Rk Cells Not Reportable 05/03/18 00:19 Bite Cells Not Reportable 05/03/18 00:19 Crenated Cell Not Reportable 05/03/18 00:19 Elliptocytes Not Reportable 05/03/18 00:19 Acanthocytes (Spur) Not Reportable 05/03/18 00:19 Rouleaux Not Reportable 05/03/18 00:19 Hemoglobin C Crystals Not Reportable 05/03/18 00:19 Schistocytes Not Reportable 05/03/18 00:19 Malaria parasites Not Reportable 05/03/18 00:19 Kevin Bodies Not Reportable 05/03/18 00:19 Hem Pathologist Commnt No 05/03/18 00:19 VBG pH 7.360 (7.320-7.420) 04/30/18 09:44 Sodium 134 mmol/L (137-145) L 05/05/18 05:03 Potassium 3.7 mmol/L (3.6-5.0) 05/05/18 05:03 Chloride 96.7 mmol/L (98-107) L 05/05/18 05:03 Carbon Dioxide 25 mmol/L (22-30) 05/05/18 05:03 Anion Gap 16 mmol/L 05/05/18 05:03 BUN 6 mg/dL (7-17) L 05/05/18 05:03 Creatinine 0.5 mg/dL (0.7-1.2) L 05/05/18 05:03 Estimated GFR > 60 ml/min 05/05/18 05:03 BUN/Creatinine Ratio 12 % 05/05/18 05:03 Glucose 125 mg/dL (65-100) H 05/05/18 05:03 POC Glucose 145 (70-105) H 05/05/18 11:18 Hemoglobin A1c 11.7 % (4-6) H 05/01/18 00:35 Lactic Acid 1.10 mmol/L (0.7-2.0) 04/30/18 13:00 Calcium 8.7 mg/dL (8.4-10.2) 05/05/18 05:03 Total Bilirubin 0.30 mg/dL (0.1-1.2) 05/02/18 05:07 AST 23 units/L (5-40) 05/02/18 05:07 ALT 29 units/L (7-56) 05/02/18 05:07 Alkaline Phosphatase 165 units/L (35-129) H 05/02/18 05:07 Total Protein 6.6 g/dL (6.3-8.2) D 05/02/18 05:07 Albumin 2.4 g/dL (3.9-5) L 05/02/18 05:07 Albumin/Globulin Ratio 0.6 % 05/02/18 05:07
[2018-05-05] MEDS: LOVENOX SUB-Q SCH (21:05)
[2018-05-05] MEDS: PRAVACHOL PO SCH (21:06)
[2018-05-06] MEDS: ceFAZolin 2 GM in NACL 0.9% 100 ML IV SCH ×4 (03:45→20:16)
[2018-05-06 05:40] LABS: Hematocrit 27.2 % (30.3-42.9); Mean Corpuscular HGB Conc 33 % (30-34); Mean Corpuscular Volume 78 fl (79-97); Platelet Count 380 K/mm3 (140-440); Red Blood Count 3.48 M/mm3 (3.65-5.03); Red Cell Distribution Width 13.9 % (13.2-15.2)
[2018-05-06 05:59] LABS: BUN/Creatinine Ratio 8; Blood Urea Nitrogen 5 mg/dL (7-17); Calcium 8.1 mg/dL (8.4-10.2); Hemolysis Index 0
[2018-05-06] MEDS: NACL 0.9% 1000 ML 1,000 ML IV SCH (06:03)
[2018-05-06] MEDS ORDERED: TYLENOL PR PRN (08:09)
[2018-05-06] MEDS: HumaLOG SUB-Q SCH ×3 (08:23→21:54)
[2018-05-06] MEDS: GLUCOPHAGE PO SCH ×2 (08:24→18:42)
[2018-05-06] MEDS: KCL 10MEQ/100ML 10 MEQ/100 ML BAG IV SCH ×4 (09:06→18:39)
--- NOTE | 2018-05-06 09:16 | Progress Note ---
Assessment and Plan 58 yo F with 1. infected diabetic R foot ulcer s/p incision and drainage and excisional debridement, POD 4 2. poorly controlled DM 3. sepsis due to #1 MRI R foot - no osteomyelitis or soft tissue abscess Plan: 1. NPO p MN 2. strict glucose control. Hb A1C is 11.7 3. wound care daily 4. cultures showed group b strep and staph aureus, c/w abx per ID 5. offloading of right foot 6. trend WBC and monitor for additional fevers. WBC remains elevated 7. Patient added to OR schedule for today for further debridement. I explained to the patient that the size of the wound may significantly increase depending on the volume of unhealthy tissue that needs to be excised. She understands. 8. d/w case management - will need helping hands application to follow up in [facility], [facility] and outpatient wound vac. Thank you, please call with questions Subjective Date of service: 05/06/18 Narrative: Pt seen and examined. Tm 101 yesterday evening. Pt c/o feeling cold. No other overnight issues. Objective Vital Signs - 12hr 05/05/18 05/06/18 23:47 06:30 Temperature 98.7 F 99.5 F Pulse Rate 95 H 82 Respiratory 20 20 Rate Blood Pressure 142/74 141/66 O2 Sat by Pulse 92 95 Oximetry - General physical appearance Narrative Exam: Gen; AAOx3. NAD CV: S1, S2+ resp: even and unlabored Ext; R foot dressing removed and one piece of packing removed from wound. Wound bed with thick adherent slough and purulent drainage from 12 oclock to 1 oclock position. Covered with dry 4x4 gauze and tape. 2+ edema of RLE - Labs 05/06/18 04:56 05/06/18 04:56 Diabetes panel 05/06/18 Range/Units 04:56 Sodium 136 L (137-145) mmol/L Potassium 3.1 L (3.6-5.0) mmol/L Chloride 97.0 L (98-107) mmol/L Carbon Dioxide 26 (22-30) mmol/L BUN 5 L (7-17) mg/dL Creatinine 0.6 L (0.7-1.2) mg/dL Glucose 117 H (65-100) mg/dL Calcium 8.1 L (8.4-10.2) mg/dL Calcium panel 05/06/18 Range/Units 04:56 Calcium 8.1 L (8.4-10.2) mg/dL Pituitary panel 05/06/18 Range/Units 04:56 Sodium 136 L (137-145) mmol/L Potassium 3.1 L (3.6-5.0) mmol/L Chloride 97.0 L (98-107) mmol/L Carbon Dioxide 26 (22-30) mmol/L BUN 5 L (7-17) mg/dL Creatinine 0.6 L (0.7-1.2) mg/dL Glucose 117 H (65-100) mg/dL Calcium 8.1 L (8.4-10.2) mg/dL Adrenal panel 05/06/18 Range/Units 04:56 Sodium 136 L (137-145) mmol/L Potassium 3.1 L (3.6-5.0) mmol/L Chloride 97.0 L (98-107) mmol/L Carbon Dioxide 26 (22-30) mmol/L BUN 5 L (7-17) mg/dL Creatinine 0.6 L (0.7-1.2) mg/dL Glucose 117 H (65-100) mg/dL Calcium 8.1 L (8.4-10.2) mg/dL
--- NOTE | 2018-05-06 09:38 | Progress Note ---
Assessment and Plan Cultures: 05/08/2018 blood culture: No growth thus far 04/30/2018 wound culture: MSSA, Group B Strep A/P: 58-year-old female with hypertension, diabetes, peripheral neuropathy related to diabetes, hyperlipidemia. Admitted with: 1) Sepsis: Leukocytosis trending down, fevers resolved, secondary to right foot diabetic foot ulcer infected with associated cellulitis and superficial ab scess: s/p open Incision and drainage of right diabetic foot abscess with exci sional debridement of wound, 05/02/18. Cultures growing Group B Strep and MSSA. MRI results show plantar forefoot skin ulcer. No evidence of osteomyelitis or soft tissue abscess. 2) Diabetes mellitus type 2 uncontrolled: Recommend tight glycemic control. 3) Diabetic neuropathy: high risk for osteomyelitis. Recs: Continue IV Cefazolin higher dose 2 gm q6 hrs, D3 [facility] M: [phone] O:[phone] Subjective Date of service: 05/06/18 Interval history: Patient seen and examined. Nurse at bedside, taking patient to surgery for incision and drainage. Objective - Exam Narrative Exam: Constitutional: Alert, cooperative. No acute distress Head, Ears, Nose: Normocephalic, atraumatic. External ears, nose normal Eyes: Conjunctivae/corneas clear. No icterus. No ptosis. Neck: Supple, no meningeal signs Oral: dentition missing teeth, no thrush Cardiovascular: S1, S2 normal. Respiratory: Good air entry, clear to auscultation bilaterally GI: Soft, non-tender; bowel sounds normal. No peritoneal signs Musculoskeletal: right foot in dressing, , + right plantar ulcer+, + dressing, no drainage observed Skin: No rash or abscess Hem/Lymphatic: No palpable cervical or supraclavicular nodes. No lymphangitis Psych: Mood ok. Affect normal Neurological: Awake, alert, oriented. peripheral neuropathy + - Constitutional Vitals: Vital Signs Temp Pulse Resp BP Pulse Ox 99.5 F 82 20 141/66 95 05/06/18 06:30 05/06/18 06:30 05/06/18 06:30 05/06/18 06:30 05/06/18 06:30 Temperature -Last 24 Hours Temperature 99.5 F Temperature 98.7 F Temperature 99.2 F Temperature 99.7 F - Labs CBC & Chem 7: 05/06/18 04:56 05/06/18 04:56 Labs: Abnormal lab results 05/05/18 05/05/18 05/05/18 Range/Units 11:18 16:16 22:04 WBC (4.5-11.0) K/mm3 RBC (3.65-5.03) M/mm3 Hgb (10.1-14.3) gm/dl Hct (30.3-42.9) % MCV (79-97) fl MCH (28-32) pg Sodium (137-145) mmol/L Potassium (3.6-5.0) mmol/L Chloride (98-107) mmol/L BUN (7-17) mg/dL Creatinine (0.7-1.2) mg/dL Glucose (65-100) mg/dL POC Glucose 145 H 205 H 134 H (70-105) Calcium (8.4-10.2) mg/dL 05/06/18 05/06/18 Range/Units 04:56 04:56 WBC 18.9 H (4.5-11.0) K/mm3 RBC 3.48 L (3.65-5.03) M/mm3 Hgb 9.0 L (10.1-14.3) gm/dl Hct 27.2 L (30.3-42.9) % MCV 78 L (79-97) fl MCH 26 L (28-32) pg Sodium 136 L (137-145) mmol/L Potassium 3.1 L (3.6-5.0) mmol/L Chloride 97.0 L (98-107) mmol/L BUN 5 L (7-17) mg/dL Creatinine 0.6 L (0.7-1.2) mg/dL Glucose 117 H (65-100) mg/dL POC Glucose (70-105) Calcium 8.1 L (8.4-10.2) mg/dL
[2018-05-06] MEDS: DAKIN'S HALF STRENGTH TP SCH (10:56)
[2018-05-06] MEDS: SODIUM CHLORIDE FLUSH SYRINGE 10 ML IV SCH ×2 (10:58→21:53)
--- NOTE | 2018-05-06 11:46 | Progress Note ---
Assessment and Plan Assessment and plan: Patient is a 58 yo Black woman with a history of NIDDM with neuropathy on gabapentin, hypertension and dyslipidemia who presents to [facility] ED with right foot pains on the ball of her foot that started about a week ago. Now, she is having severe pains, difficulty ambulating and foul ordor with drainage. She just moved to [place] about 1 week ago from [place] -MSSA Sepsis from Right foot infection with abscess s/p excisional debridement: following blood and wound culture, MRI foot ruled out osteomyelitis, Switch antibiotics to cefepime, Flagyl and vancomycin -Right foot cellulitis: treat with abx, ID is following -Poorly controlled DM, a1c 11.7: SSI, ada diet, I adjust insulin -Diabetic neuropathy: continue gabapentin Dispo: continue inpatient care, still spiking fevers, wound culture finalized==>mssa, Patient added to OR schedule for today for further debridement. History Interval history: Patient was seen and examined. Follow-up on current diagnosis right plantar foot infection. Overnight uneventful. Patient denies any chest pain, shortness breath, nausea/vomiting or severe headaches. Imaging, nursing note, chart, labs and old chart reviewed. Discussed with patient. Hospitalist Physical - Physical exam Narrative exam: Gen: WDWN, NAD, Awake, Alert, Orientated HEENT: NCAT, EOMI, PERRL, OP Clear Neck: supple, no adenopathy, no thyromegaly, no JVD CVS/Heart: RRR, normal S1S2, pulses present bilaterally Chest/Lungs: CTA B, Symmetrical chest expansion, good air entry bilaterally GI/Abdomen: soft, NTND, good bowel sounds, no guarding or rebound /Bladder: no suprapubic tenderness, no CVA or paraspinal tenderness Extermity/Skin: under right big toe there is a foul smelling ulcer MSK: FROM x 4 Neuro: CN 2-12 grossly intact, no new focal deficits Psych: calm - Constitutional Vitals: Temp Pulse Resp BP Pulse Ox 98.1 F 74 18 135/70 95 05/06/18 11:25 05/06/18 11:25 05/06/18 11:25 05/06/18 11:25 05/06/18 11:25 Results - Labs CBC & Chem 7: 05/06/18 04:56 05/06/18 04:56 Labs: Laboratory Last Values WBC 18.9 K/mm3 (4.5-11.0) H 05/06/18 04:56 RBC 3.48 M/mm3 (3.65-5.03) L 05/06/18 04:56 Hgb 9.0 gm/dl (10.1-14.3) L 05/06/18 04:56 Hct 27.2 % (30.3-42.9) L 05/06/18 04:56 MCV 78 fl (79-97) L 05/06/18 04:56 MCH 26 pg (28-32) L 05/06/18 04:56 MCHC 33 % (30-34) 05/06/18 04:56 RDW 13.9 % (13.2-15.2) 05/06/18 04:56 Plt Count 380 K/mm3 (140-440) 05/06/18 04:56 Lymph % (Auto) 11.7 % (13.4-35.0) L 05/02/18 05:07 Owen % (Auto) 8.8 % (0.0-7.3) H 05/02/18 05:07 Eos % (Auto) 1.1 % (0.0-4.3) 05/02/18 05:07 Baso % (Auto) 0.4 % (0.0-1.8) 05/02/18 05:07 Lymph # 2.1 K/mm3 (1.2-5.4) 05/02/18 05:07 Owen # 1.6 K/mm3 (0.0-0.8) H 05/02/18 05:07 Eos # 0.2 K/mm3 (0.0-0.4) 05/02/18 05:07 Baso # 0.1 K/mm3 (0.0-0.1) 05/02/18 05:07 Add Manual Diff Complete 05/03/18 00:19 Total Counted 100 05/03/18 00:19 Seg Neutrophils % 78.0 % (40.0-70.0) H 05/02/18 05:07 Seg Neuts % (Manual) 79.0 % (40.0-70.0) H 05/03/18 00:19 Band Neutrophils % 5.0 % 05/03/18 00:19 Lymphocytes % (Manual) 10.0 % (13.4-35.0) L 05/03/18 00:19 Reactive Lymphs % (Man) 0 % 05/03/18 00:19 Monocytes % (Manual) 6.0 % (0.0-7.3) 05/03/18 00:19 Eosinophils % (Manual) 0 % (0.0-4.3) 05/03/18 00:19 Basophils % (Manual) 0 % (0.0-1.8) 05/03/18 00:19 Metamyelocytes % 0 % 05/03/18 00:19 Myelocytes % 0 % 05/03/18 00:19 Promyelocytes % 0 % 05/03/18 00:19 Blast Cells % 0 % 05/03/18 00:19 Nucleated RBC % Not Reportable 05/03/18 00:19 Seg Neutrophils # 13.9 K/mm3 (1.8-7.7) H 05/02/18 05:07 Seg Neutrophils # Man 17.7 K/mm3 (1.8-7.7) H 05/03/18 00:19 Band Neutrophils # 1.1 K/mm3 05/03/18 00:19 Lymphocytes # (Manual) 2.2 K/mm3 (1.2-5.4) 05/03/18 00:19 Abs React Lymphs (Man) 0.0 K/mm3 05/03/18 00:19 Monocytes # (Manual) 1.3 K/mm3 (0.0-0.8) H 05/03/18 00:19 Eosinophils # (Manual) 0.0 K/mm3 (0.0-0.4) 05/03/18 00:19 Basophils # (Manual) 0.0 K/mm3 (0.0-0.1) 05/03/18 00:19 Metamyelocytes # 0.0 K/mm3 05/03/18 00:19 Myelocytes # 0.0 K/mm3 05/03/18 00:19 Promyelocytes # 0.0 K/mm3 05/03/18 00:19 Blast Cells # 0.0 K/mm3 05/03/18 00:19 WBC Morphology Not Reportable 05/03/18 00:19 Hypersegmented Neuts Not Reportable 05/03/18 00:19 Hyposegmented Neuts Not Reportable 05/03/18 00:19 Hypogranular Neuts Not Reportable 05/03/18 00:19 Smudge Cells Not Reportable 05/03/18 00:19 Toxic Granulation Not Reportable 05/03/18 00:19 Toxic Vacuolation Not Reportable 05/03/18 00:19 Dohle Bodies Not Reportable 05/03/18 00:19 Pelger-Huet Anomaly Not Reportable 05/03/18 00:19 Jb Rods Not Reportable 05/03/18 00:19 Platelet Estimate Appears normal 05/03/18 00:19 Clumped Platelets Not Reportable 05/03/18 00:19 Plt Clumps, EDTA Not Reportable 05/03/18 00:19 Large Platelets Not Reportable 05/03/18 00:19 Giant Platelets Not Reportable 05/03/18 00:19 Platelet Satelliting Not Reportable 05/03/18 00:19 Plt Morphology Comment Not Reportable 05/03/18 00:19 RBC Morphology Not Reportable 05/03/18 00:19 Dimorphic RBCs Not Reportable 05/03/18 00:19 Polychromasia Not Reportable 05/03/18 00:19 Hypochromasia Not Reportable 05/03/18 00:19 Poikilocytosis Not Reportable 05/03/18 00:19 Anisocytosis Not Reportable 05/03/18 00:19 Microcytosis Not Reportable 05/03/18 00:19 Macrocytosis Not Reportable 05/03/18 00:19 Spherocytes Not Reportable 05/03/18 00:19 Pappenheimer Bodies Not Reportable 05/03/18 00:19 Sickle Cells Not Reportable 05/03/18 00:19 Target Cells Rare 05/03/18 00:19 Tear Drop Cells Not Reportable 05/03/18 00:19 Ovalocytes 1+ 05/03/18 00:19 Stomatocytes Rare 05/03/18 00:19 Helmet Cells Not Reportable 05/03/18 00:19 [place] Bodies Not Reportable 05/03/18 00:19 [place] Rings Not Reportable 05/03/18 00:19 Rk Cells Not Reportable 05/03/18 00:19 Bite Cells Not Reportable 05/03/18 00:19 Crenated Cell Not Reportable 05/03/18 00:19 Elliptocytes Not Reportable 05/03/18 00:19 Acanthocytes (Spur) Not Reportable 05/03/18 00:19 Rouleaux Not Reportable 05/03/18 00:19 Hemoglobin C Crystals Not Reportable 05/03/18 00:19 Schistocytes Not Reportable 05/03/18 00:19 Malaria parasites Not Reportable 05/03/18 00:19 Kevin Bodies Not Reportable 05/03/18 00:19 Hem Pathologist Commnt No 05/03/18 00:19 VBG pH 7.360 (7.320-7.420) 04/30/18 09:44 Sodium 136 mmol/L (137-145) L 05/06/18 04:56 Potassium 3.1 mmol/L (3.6-5.0) L 05/06/18 04:56 Chloride 97.0 mmol/L (98-107) L 05/06/18 04:56 Carbon Dioxide 26 mmol/L (22-30) 05/06/18 04:56 Anion Gap 16 mmol/L 05/06/18 04:56 BUN 5 mg/dL (7-17) L 05/06/18 04:56 Creatinine 0.6 mg/dL (0.7-1.2) L 05/06/18 04:56 Estimated GFR > 60 ml/min 05/06/18 04:56 BUN/Creatinine Ratio 8 % 05/06/18 04:56 Glucose 117 mg/dL (65-100) H 05/06/18 04:56 POC Glucose 134 (70-105) H 05/05/18 22:04 Hemoglobin A1c 11.7 % (4-6) H 05/01/18 00:35 Lactic Acid 1.10 mmol/L (0.7-2.0) 04/30/18 13:00 Calcium 8.1 mg/dL (8.4-10.2) L 05/06/18 04:56 Total Bilirubin 0.30 mg/dL (0.1-1.2) 05/02/18 05:07 AST 23 units/L (5-40) 05/02/18 05:07 ALT 29 units/L (7-56) 05/02/18 05:07 Alkaline Phosphatase 165 units/L (35-129) H 05/02/18 05:07 Total Protein 6.6 g/dL (6.3-8.2) D 05/02/18 05:07 Albumin 2.4 g/dL (3.9-5) L 05/02/18 05:07 Albumin/Globulin Ratio 0.6 % 05/02/18 05:07
[2018-05-06] MEDS ORDERED: NACL 0.9% 1000 ML 1,000 ML IV SCH (12:04)
[2018-05-06] MEDS ORDERED: PEPCID IV NR (12:05)
[2018-05-06] MEDS ORDERED: VERSED IV NR (13:00)
[2018-05-06] MEDS ORDERED: DIPRIVAN 10 MG/ML IV ONE (14:23)
[2018-05-06] MEDS ORDERED: SUBLIMAZE ONE ×2 (14:24→15:10)
[2018-05-06] MEDS ORDERED: XYLOCAINE CARDIAC IV ONE (14:46)
[2018-05-06] MEDS ORDERED: ZOFRAN ONE (14:46)
--- NOTE | 2018-05-06 15:24 | Post Operative Note ---
Date of procedure: 05/06/18 Pre-op diagnosis: infected right diabetic foot wound Post-op diagnosis: other (necrotizing infection of right diabetic foot wound) Findings: liquifactive necrosis of subcutaneous tissue and muscle. bone visible and palpable. necrotic skin Wound measurement post debridement: 7cm x 7.5cm x 2cm Procedure: excisional debridement of right infected diabetic foot wound Anesthesia: ARLEEN Surgeon: ROGELIO SNOWDEN Estimated blood loss: minimal Pathology: none Condition: stable Disposition: PACU
[2018-05-06] MEDS ORDERED: DILAUDID IV PRN (15:54)
[2018-05-06] MEDS: ZESTRIL PO SCH (17:45)
[2018-05-06] MEDS: HCTZ PO SCH (17:46)
[2018-05-06] MEDS: PEPCID PO SCH ×2 (17:46→21:54)
[2018-05-06] MEDS: HALFPRIN EC PO SCH (17:46)
[2018-05-06] MEDS: NEURONTIN PO SCH (17:47)
[2018-05-06] MEDS: LOVENOX SUB-Q SCH (21:54)
[2018-05-06] MEDS: PRAVACHOL PO SCH (21:54)
[2018-05-07] MEDS: NACL 0.9% 1000 ML 1,000 ML IV SCH ×2 (00:18→10:19)
[2018-05-07] MEDS: NEURONTIN PO SCH ×3 (00:24→16:33)
[2018-05-07] MEDS: TYLENOL PO PRN (01:28)
[2018-05-07] MEDS: ceFAZolin 2 GM in NACL 0.9% 100 ML IV SCH ×4 (02:37→22:00)
[2018-05-07] MEDS: DAKIN'S HALF STRENGTH TP SCH ×3 (03:20→23:55)
[2018-05-07] MEDS: GLUCOPHAGE PO SCH ×2 (07:59→16:33)
[2018-05-07] MEDS: HumaLOG SUB-Q SCH ×4 (08:00→22:43)
[2018-05-07] MEDS ORDERED: K-DUR PO ONE (09:00)
--- NOTE | 2018-05-07 09:26 | Progress Note ---
Assessment and Plan Cultures: 04/30/2018 blood culture: No growth thus far 05/03/2018: blood culture: No growth thus far 04/30/2018 wound culture: MSSA, Group B Strep A/P: 58-year-old female with hypertension, diabetes, peripheral neuropathy related to diabetes, hyperlipidemia. Admitted with: 1) Sepsis: Leukocytosis, Spiking fevers , secondary to right foot diabetic foot ulcer infected with associated cellulitis and superficial abscess: Cultures growing Group B Strep and MSSA. 2) Right Diabetic foot ulcer: MRI results show plantar forefoot skin ulcer. No evidence of osteomyelitis or soft tissue abscess. s/p Wound probed to bone during 05/06/18 debridement, will order OPAT for 4 weeks post I & D. 2) Diabetes mellitus type 2 uncontrolled: Recommend tight glycemic control. 3) Diabetic neuropathy: high risk for osteomyelitis. Recs: Continue IV Cefazolin higher dose 2 gm q6 hrs, D4 CBC ordered for tomorrow upon discharge will do ceftriaxone 2gm IV q 24H for 4 weeks until 06/03/18 order placed with case management PICC line order placed f/u with ID clinic 06-04-18 [facility] M: [phone] O:[phone] Subjective Date of service: 05/07/18 Interval history: Patient seen and examined. patient states that she is having right foot pain, 6/10 on numeric pain scale. Discussion regarding OPAT therapy, verbalized understanding. Objective - Exam Narrative Exam: Constitutional: Alert, cooperative. c/o of right foot pain, 6/10 on numeric pain scale. Head, Ears, Nose: Normocephalic, atraumatic. External ears, nose normal Eyes: Conjunctivae/corneas clear. No icterus. No ptosis. Neck: Supple, no meningeal signs Oral: dentition missing teeth, no thrush Cardiovascular: S1, S2 normal. Respiratory: Good air entry, clear to auscultation bilaterally GI: Soft, non-tender; bowel sounds normal. No peritoneal signs Musculoskeletal: s/p wound probed to bone during debridement, right foot in dressing, no drainage Skin: No rash or abscess Hem/Lymphatic: No palpable cervical or supraclavicular nodes. No lymphangitis Psych: Mood ok. Affect normal Neurological: Awake, alert, oriented. peripheral neuropathy + - Constitutional Vitals: Vital Signs Temp Pulse Resp BP Pulse Ox 97.8 F 76 18 118/62 93 05/07/18 08:00 05/07/18 06:08 05/07/18 06:08 05/07/18 06:08 05/07/18 06:08 Temperature -Last 24 Hours Temperature 97.8 F Temperature 98.2 F Temperature 103.2 F Temperature 98.0 F Temperature 97.5 F Temperature 98.1 F Temperature 98.1 F Temperature 100.7 F - Labs CBC & Chem 7: 05/06/18 04:56 05/06/18 04:56 Labs: Abnormal lab results 05/06/18 05/06/18 05/06/18 Range/Units 12:04 12:43 21:04 POC Hgb 9.2 L (12-17) POC Hct 27 L (38-51) POC Sodium 136 L (138-146) mmol/L POC Potassium 3.1 L (3.5-4.9) POC Chloride 96 L (98-109) POC BUN 4 L (8-26) mg/dl POC Glucose 106 H 119 H 198 H (70-105) 05/07/18 Range/Units 07:43 POC Hgb (12-17) POC Hct (38-51) POC Sodium (138-146) mmol/L POC Potassium (3.5-4.9) POC Chloride (98-109) POC BUN (8-26) mg/dl POC Glucose 142 H (70-105)
[2018-05-07] MEDS: SODIUM CHLORIDE FLUSH SYRINGE 10 ML IV SCH ×2 (10:34→22:03)
[2018-05-07] MEDS: HCTZ PO SCH (10:35)
[2018-05-07] MEDS: HALFPRIN EC PO SCH (10:35)
[2018-05-07] MEDS: PEPCID PO SCH ×2 (10:35→21:58)
[2018-05-07] MEDS: ZESTRIL PO SCH (10:35)
--- NOTE | 2018-05-07 10:50 | Progress Note ---
Assessment and Plan 58 yo F s/p excisional debridement of right infected diabetic foot wound, POD 1 1. infected diabetic R foot ulcer 2. poorly controlled DM 3. sepsis due to #1 MRI R foot - no osteomyelitis or soft tissue abscess Plan: 1. diabetic diet 2. strict glucose control. Hb A1C is 11.7 3. wound care daily - will continue dakins for next 48 hrs and reassess for need for further debridement. 4. cultures showed group b strep and staph aureus, c/w abx. Wound probed to bone during debridement, may need prolonged course of antibiotics. will defer to ID 5. offloading of right foot 6. trend WBC and monitor for additional fevers. 7. d/w case management - will need helping hands application to follow up in wound care center and outpatient wound vac. Thank you, please call with questions Subjective Date of service: 05/07/18 Narrative: Pt seen and examined. No acute complaints. Tm of 103 overnight. No fever since then. Mild pain at surgical site. Objective Vital Signs - 12hr 05/06/18 05/07/18 05/07/18 23:34 06:08 08:00 Temperature 103.2 F H 98.2 F 97.8 F Pulse Rate 108 H 76 Respiratory 20 18 Rate Blood Pressure 92/48 118/62 O2 Sat by Pulse 86 93 Oximetry 05/07/18 10:35 Temperature Pulse Rate 84 Respiratory Rate Blood Pressure 119/65 O2 Sat by Pulse Oximetry - General physical appearance Narrative Exam: Gen: AAOx3. NAD CV: s1, S2+ resp: even and unlabored Ext; R foot dressing removed. Wound bed is red with slough overlying muscle. No erythema or fluctuance. Visualized muscle appears healthy. No further purulent drainage. periwound skin appears healthy. +motor. Minimal sensation. - Labs 05/06/18 04:56 05/06/18 04:56
[2018-05-07] MEDS: D5W/0.45% NACL/KCL 20 MEQ 20 MEQ/1,000 ML BAG IV SCH (12:04)
--- NOTE | 2018-05-07 12:19 | Progress Note ---
<MUNDO WEAVER C - Last Filed: 05/07/18 13:11> Objective - Constitutional Vitals: Vital Signs - 12hr 05/07/18 05/07/18 05/07/18 06:08 08:00 10:30 Temperature 98.2 F 97.8 F 97.8 F Pulse Rate 76 84 Respiratory 18 18 Rate Blood Pressure 118/62 Blood Pressure 118/65 [Right] O2 Sat by Pulse 93 Oximetry 05/07/18 05/07/18 10:35 12:09 Temperature 98.6 F Pulse Rate 84 82 Respiratory 20 Rate Blood Pressure 119/65 124/70 Blood Pressure [Right] O2 Sat by Pulse 94 Oximetry - Labs CBC & Chem 7: 05/06/18 04:56 05/06/18 04:56 Labs: Abnormal lab results 05/06/18 05/07/18 05/07/18 Range/Units 21:04 07:43 12:14 POC Glucose 198 H 142 H 198 H (70-105) <ABBY DURAND R - Last Filed: 05/09/18 13:29> Assessment and Plan -MSSA Sepsis with Right foot abscess - s/p excisional debridement X2 by GS: - following blood and wound culture, MRI foot ruled out osteomyelitis, - ID following - Continue IV Cefazolin higher dose 2 gm q6 hrs, D5 - upon discharge will do ceftriaxone 2gm IV q 24H for 4 weeks until 06/03/18 -Right foot cellulitis: treat with abx, ID is following -Poorly controlled DM, a1c 11.7: SSI, ada diet, adjust insulin to improve glycemic control -Diabetic neuropathy: continue gabapentin Dispo: continue inpatient care, wound culture finalized==>mssa, will need wound vac, IV abx on discharge. patient with out of state medicare Brief History Patient is a 58 yo Black woman with a history of NIDDM with neuropathy on gabapentin, hypertension and dyslipidemia who presents to [facility] ED with right foot pains on the ball of her foot that started about a week ago with difficulty ambulating and foul ordor with drainage. She just moved to [place] about 1 week ago from [facility]. Hospitalist Physical Gen: WDWN, NAD, Awake, Alert, Orientated HEENT: NCAT, EOMI, PERRL, OP Clear Neck: supple, no adenopathy, no thyromegaly, no JVD CVS/Heart: RRR, normal S1S2, pulses present bilaterally Chest/Lungs: CTA B, Symmetrical chest expansion, good air entry bilaterally GI/Abdomen: soft, NTND, good bowel sounds, no guarding or rebound /Bladder: no suprapubic tenderness, no CVA or paraspinal tenderness Extermity/Skin: under right big toe there is a foul smelling ulcer MSK: FROM x 4 Neuro: CN 2-12 grossly intact, no new focal deficits Psych: calm Subjective Date of service: 05/07/18 Interval history: Patient was seen and examined. Follow-up on current diagnosis right plantar foot infection. Overnight uneventful. Patient denies any chest pain, shortness breath, nausea/vomiting or severe headaches. s/p another debridement yesterday. Objective - Constitutional Vitals: Vital Signs - 12hr 05/07/18 05/07/18 05/07/18 06:08 08:00 10:30 Temperature 98.2 F 97.8 F 97.8 F Pulse Rate 76 84 Respiratory 18 18 Rate Blood Pressure 118/62 Blood Pressure 118/65 [Right] O2 Sat by Pulse 93 Oximetry 05/07/18 05/07/18 10:35 12:09 Temperature 98.6 F Pulse Rate 84 82 Respiratory 20 Rate Blood Pressure 119/65 124/70 Blood Pressure [Right] O2 Sat by Pulse 94 Oximetry - Labs CBC & Chem 7: 05/08/18 00:30 05/08/18 04:47 Labs: Abnormal lab results 05/06/18 05/06/18 05/07/18 Range/Units 12:43 21:04 07:43 POC Hgb 9.2 L (12-17) POC Hct 27 L (38-51) POC Sodium 136 L (138-146) mmol/L POC Potassium 3.1 L (3.5-4.9) POC Chloride 96 L (98-109) POC BUN 4 L (8-26) mg/dl POC Glucose 119 H 198 H 142 H (70-105)
[2018-05-07] MEDS: LOVENOX SUB-Q SCH (21:58)
[2018-05-07] MEDS: PRAVACHOL PO SCH (21:58)
[2018-05-08] MEDS: NEURONTIN PO SCH ×3 (01:02→17:57)
[2018-05-08 01:11] LABS: Hematocrit 25.5 % (30.3-42.9); Hemoglobin 8.4 gm/dl (10.1-14.3); Mean Corpuscular HGB Conc 33 % (30-34); Mean Corpuscular Volume 79 fl (79-97); Platelet Count 398 K/mm3 (140-440); Red Blood Count 3.21 M/mm3 (3.65-5.03); Red Cell Distribution Width 13.9 % (13.2-15.2)
[2018-05-08] MEDS: ceFAZolin 2 GM in NACL 0.9% 100 ML IV SCH ×3 (02:35→17:57)
[2018-05-08 02:42] LABS: Anisocytosis 1+; Band Neutrophils # (Manual) 0.8 K/mm3; Basophils % (Manual) 0 % (0.0-1.8); Eosinophils % (Manual) 0 % (0.0-4.3); Helmet Cells Rare; Hypochromasia 1+; Myelocytes # (Manual) 0.2 K/mm3; Ovalocytes 1+; Poikilocytosis 1+; Total Cells Counted 100
[2018-05-08 02:43] LABS: Dimorphic RBC Yes; Stomatocytes 1+
[2018-05-08 05:22] LABS: BUN/Creatinine Ratio 10; Blood Urea Nitrogen 5 mg/dL (7-17); Calcium 8.5 mg/dL (8.4-10.2); Hemolysis Index 0
[2018-05-08] MEDS: D5W/0.45% NACL/KCL 20 MEQ 20 MEQ/1,000 ML BAG IV SCH (06:48)
[2018-05-08] MEDS: GLUCOPHAGE PO SCH ×2 (08:28→17:00)
[2018-05-08] MEDS: HumaLOG SUB-Q SCH ×4 (08:28→22:33)
[2018-05-08] MEDS: DAKIN'S HALF STRENGTH TP SCH ×2 (10:28→22:12)
[2018-05-08] MEDS: ZESTRIL PO SCH (10:41)
[2018-05-08] MEDS: HALFPRIN EC PO SCH (10:41)
[2018-05-08] MEDS: PEPCID PO SCH ×2 (10:42→22:05)
[2018-05-08] MEDS: HCTZ PO SCH (10:42)
[2018-05-08] MEDS: SODIUM CHLORIDE FLUSH SYRINGE 10 ML IV SCH (10:43)
--- NOTE | 2018-05-08 10:45 | XRay Report ---
PORTABLE CHEST INDICATION: Right upper extremity PICC. COMPARISON: 04/30/2018 FINDINGS: Portable, frontal chest radiograph demonstrates new right upper extremity PICC tip about the cavoatrial junction. Better inspiration with grossly stable cardiomediastinal silhouette. Mild left basilar opacity may now represent atelectasis/small pleural fluid with partly obscured left hemidiaphragm. Slight pulmonary vascular redistribution without overt CHF. Intact bones. CONCLUSION: 1. Interval uncomplicated right upper extremity PICC placement. 2. New left basilar opacity, as described. Thank you for the opportunity to participate in this patient's care.
--- NOTE | 2018-05-08 10:56 | Progress Note ---
Assessment and Plan 58 yo F s/p excisional debridement of right infected diabetic foot wound, POD 2 1. infected diabetic R foot ulcer 2. poorly controlled DM 3. sepsis due to #1 MRI R foot - no osteomyelitis or soft tissue abscess Plan: 1. diabetic diet 2. strict glucose control. Hb A1C is 11.7 3. wound care daily - wound looks good. will apply vac tomorrow. d/w hospital pharmacy technician 4. cultures showed group b strep and staph aureus, c/w abx. Wound probed to bone during debridement, may need prolonged course of antibiotics. will defer to ID. PICC line placed today 5. non wt bearing right foot 6. trend WBC and monitor for additional fevers. - currently WBC trending down and no fever x 24 hrs 7. d/w case management - will need helping hands application to follow up in wound care center and outpatient wound vac. Thank you, please call with questions Objective Vital Signs - 12hr 05/08/18 05/08/18 05/08/18 00:15 05:46 10:41 Temperature 99.0 F 99.6 F Pulse Rate 82 79 10 L Respiratory 16 18 Rate Blood Pressure 111/67 127/72 O2 Sat by Pulse 92 92 Oximetry - Labs 05/08/18 00:30 05/08/18 04:47 Diabetes panel 05/08/18 Range/Units 04:47 Sodium 137 (137-145) mmol/L Potassium 3.7 (3.6-5.0) mmol/L Chloride 98.2 (98-107) mmol/L Carbon Dioxide 27 (22-30) mmol/L BUN 5 L (7-17) mg/dL Creatinine 0.5 L (0.7-1.2) mg/dL Glucose 170 H (65-100) mg/dL Calcium 8.5 (8.4-10.2) mg/dL Calcium panel 05/08/18 Range/Units 04:47 Calcium 8.5 (8.4-10.2) mg/dL Pituitary panel 05/08/18 Range/Units 04:47 Sodium 137 (137-145) mmol/L Potassium 3.7 (3.6-5.0) mmol/L Chloride 98.2 (98-107) mmol/L Carbon Dioxide 27 (22-30) mmol/L BUN 5 L (7-17) mg/dL Creatinine 0.5 L (0.7-1.2) mg/dL Glucose 170 H (65-100) mg/dL Calcium 8.5 (8.4-10.2) mg/dL Adrenal panel 05/08/18 Range/Units 04:47 Sodium 137 (137-145) mmol/L Potassium 3.7 (3.6-5.0) mmol/L Chloride 98.2 (98-107) mmol/L Carbon Dioxide 27 (22-30) mmol/L BUN 5 L (7-17) mg/dL Creatinine 0.5 L (0.7-1.2) mg/dL Glucose 170 H (65-100) mg/dL Calcium 8.5 (8.4-10.2) mg/dL
--- NOTE | 2018-05-08 11:40 | Operative Report ---
PREOPERATIVE DIAGNOSIS: Infected right diabetic foot wound. POSTOPERATIVE DIAGNOSES: Necrotizing infection of right diabetic foot wound. FINDINGS: 1. Liquefactive necrosis of subcutaneous tissue and muscle. Necrotic skin. Bone visible and palpable. 2. Preoperative wound measurements were 3 cm x 1 cm x 2 cm. Postoperative measurements were 7 cm x 7.5 cm x 3 cm. PROCEDURE: Excisional debridement of right infected diabetic foot wound. ANESTHESIA: General endotracheal anesthesia. SURGEON: Rachel Crockett DO. ESTIMATED BLOOD LOSS: Minimal. PATHOLOGY: None. CONDITION: Stable. DISPOSITION: To PACU HISTORY OF PRESENT ILLNESS AND INDICATION: The patient is a 58-year-old female presented to the hospital with complaints of drainage from her right foot. She was unaware that she had a wound in this location up until for approximately one week. The wound was found to be infected and a bedside debridement was performed x 2. However, the wound did decompensate significantly and the patient continued to have an elevated white blood cell count and fevers. It was therefore decided to take her to the operating room for further debridement and exploration. All risks, benefits, alternatives of surgery were discussed with the patient. Consent obtained. PROCEDURE IN DETAIL: The patient was identified in the preoperative area and taken back to the operating room and placed on the table in supine position. After anesthesia was induced, the right leg was placed on a bump and the right foot and ankle prepped and draped in the usual sterile fashion. A timeout was performed. Open excisional debridement was performed involving the skin, subcutaneous tissue and underlying muscle. All necrotic tissue was sharply debrided using a combination of forceps, Herbert scissors, electrocautery, and blade. There were multiple loculated abscesses encountered during the debridement, which were evacuated. All loculations were bluntly dissected using a gloved finger and all purulent material was evacuated. Upon exploration, there was bone visible and the wound probed down to the bone at the medial aspect of the wound near the great toe. The wound was then copiously irrigated with a Pulsavac lavage. Hemostasis was achieved using a combination of pressure and electrocautery. Once hemostasis was achieved, the wound was packed with saline moistened gauze, covered with dry gauze, ABD pad, and wrapped with Kerlix. At the end of the case, all sponge, sharp, needle counts were correct x 2. The patient was awoken from anesthesia, extubated, and taken to PACU in stable condition. JOB# [id number] NK/WINTER SYLVESTERD
--- NOTE | 2018-05-08 13:02 | Progress Note ---
Assessment and Plan Cultures: 04/30/2018 blood culture: No growth thus far 05/03/2018: blood culture: No growth thus far 04/30/2018 wound culture: MSSA, Group B Strep A/P: 58-year-old female with hypertension, diabetes, peripheral neuropathy related to diabetes, hyperlipidemia. Admitted with: 1) Sepsis: WBC and fever improving, secondary to right foot diabetic foot ulcer infected with associated cellulitis and superficial abscess: Cultures growing Group B Strep and MSSA. 2) Right Diabetic foot ulcer: MRI results show plantar forefoot skin ulcer. No evidence of osteomyelitis or soft tissue abscess on MRI. s/p Wound probed to bone during 05/06/18 debridement, will order OPAT for 4 weeks post I & D, hence treat as clinical osteomyelitis. 3) Diabetes mellitus type 2 uncontrolled: Recommend tight glycemic control. 4) Diabetic neuropathy: high risk for osteomyelitis. Recs: Continue IV Cefazolin higher dose 2 gm q6 hrs, D5 upon discharge will do ceftriaxone 2gm IV q 24H for 4 weeks until 06/03/18 order placed with case management PICC line order placed f/u with ID clinic 06-04-18 MD [facility] C: [phone] O: [phone] F: [phone] Subjective Date of service: 05/08/18 Interval history: Afebrile. Feeling well. No nausea, vomiting. No pain in leg. No diarrhea. Objective - Exam Narrative Exam: Physical Exam: Constitutional: Alert, cooperative. No acute distress Head, Ears, Nose: Normocephalic, atraumatic. External ears, nose normal Eyes: Conjunctivae/corneas clear. No icterus. No ptosis. Neck: Supple, no meningeal signs Oral: several missing teeth, no thrush Cardiovascular: S1, S2 normal. Respiratory: Good air entry, clear to auscultation bilaterally GI: Soft, non-tender; bowel sounds normal. No peritoneal signs Musculoskeletal: right foot in dressing, mild edema + Skin: No rash or abscess Hem/Lymphatic: No palpable cervical or supraclavicular nodes. No lymphangitis Psych: Mood ok. Affect normal Neurological: Awake, alert, oriented. peripheral neuropathy + - Constitutional Vitals: Vital Signs Temp Pulse Resp BP Pulse Ox 98.7 F 85 20 130/62 92 05/08/18 12:01 05/08/18 12:01 05/08/18 12:01 05/08/18 12:01 05/08/18 12:01 Temperature -Last 24 Hours Temperature 98.7 F Temperature 99.6 F Temperature 99.0 F Temperature 98.8 F - Labs CBC & Chem 7: 05/08/18 00:30 05/08/18 04:47 Labs: Abnormal lab results 05/07/18 05/07/18 05/08/18 Range/Units 17:33 21:27 00:30 WBC 15.8 H (4.5-11.0) K/mm3 RBC 3.21 L (3.65-5.03) M/mm3 Hgb 8.4 L (10.1-14.3) gm/dl Hct 25.5 L (30.3-42.9) % MCH 26 L (28-32) pg Seg Neuts % (Manual) 75.0 H (40.0-70.0) % Seg Neutrophils # Man 11.9 H (1.8-7.7) K/mm3 BUN (7-17) mg/dL Creatinine (0.7-1.2) mg/dL Glucose (65-100) mg/dL POC Glucose 186 H 189 H (70-105) 05/08/18 05/08/18 Range/Units 04:47 07:52 WBC (4.5-11.0) K/mm3 RBC (3.65-5.03) M/mm3 Hgb (10.1-14.3) gm/dl Hct (30.3-42.9) % MCH (28-32) pg Seg Neuts % (Manual) (40.0-70.0) % Seg Neutrophils # Man (1.8-7.7) K/mm3 BUN 5 L (7-17) mg/dL Creatinine 0.5 L (0.7-1.2) mg/dL Glucose 170 H (65-100) mg/dL POC Glucose 179 H (70-105)
--- NOTE | 2018-05-08 13:49 | Progress Note ---
Assessment and Plan -MSSA Sepsis with Right foot abscess - s/p excisional debridement X2 by GS: - following blood and wound culture, MRI foot ruled out osteomyelitis, - ID following - Continue IV Cefazolin higher dose 2 gm q6 hrs, - upon discharge will do ceftriaxone 2gm IV q 24H for 4 weeks until 06/03/18 -Right foot cellulitis: treat with abx, ID is following -Poorly controlled DM, a1c 11.7: SSI, ada diet, adjust insulin to improve glycemic control -Diabetic neuropathy: continue gabapentin Dispo: continue inpatient care, wound culture finalized==>mssa, will need wound vac, IV abx on discharge. patient with out of state medicare Brief History Patient is a 58 yo Black woman with a history of NIDDM with neuropathy on gabapentin, hypertension and dyslipidemia who presents to [facility] ED with right foot pains on the ball of her foot that started about a week ago with difficulty ambulating and foul ordor with drainage. She just moved to [place] about 1 week ago from [facility]. Hospitalist Physical Gen: WDWN, NAD, Awake, Alert, Orientated HEENT: NCAT, EOMI, PERRL, OP Clear Neck: supple, no adenopathy, no thyromegaly, no JVD CVS/Heart: RRR, normal S1S2, pulses present bilaterally Chest/Lungs: CTA B, Symmetrical chest expansion, good air entry bilaterally GI/Abdomen: soft, NTND, good bowel sounds, no guarding or rebound /Bladder: no suprapubic tenderness, no CVA or paraspinal tenderness Extermity/Skin: right foot with dressing MSK: FROM x 4 Neuro: CN 2-12 grossly intact, no new focal deficits Psych: calm Subjective Date of service: 05/08/18 Interval history: Patient was seen and examined. Follow-up on current diagnosis right plantar foot infection. Overnight uneventful. Patient denies any chest pain, shortness breath, nausea/vomiting or severe headaches. waiting for wound vac and iv abx ar rangement. Objective - Constitutional Vitals: Vital Signs - 12hr 05/08/18 05/08/18 05/08/18 05:46 10:41 12:01 Temperature 99.6 F 98.7 F Pulse Rate 79 10 L 85 Respiratory 18 20 Rate Blood Pressure 127/72 130/62 O2 Sat by Pulse 92 92 Oximetry - Labs CBC & Chem 7: 05/08/18 00:30 05/08/18 04:47 Labs: Abnormal lab results 05/07/18 05/07/18 05/08/18 Range/Units 17:33 21:27 00:30 WBC 15.8 H (4.5-11.0) K/mm3 RBC 3.21 L (3.65-5.03) M/mm3 Hgb 8.4 L (10.1-14.3) gm/dl Hct 25.5 L (30.3-42.9) % MCH 26 L (28-32) pg Seg Neuts % (Manual) 75.0 H (40.0-70.0) % Seg Neutrophils # Man 11.9 H (1.8-7.7) K/mm3 BUN (7-17) mg/dL Creatinine (0.7-1.2) mg/dL Glucose (65-100) mg/dL POC Glucose 186 H 189 H (70-105) 05/08/18 05/08/18 Range/Units 04:47 07:52 WBC (4.5-11.0) K/mm3 RBC (3.65-5.03) M/mm3 Hgb (10.1-14.3) gm/dl Hct (30.3-42.9) % MCH (28-32) pg Seg Neuts % (Manual) (40.0-70.0) % Seg Neutrophils # Man (1.8-7.7) K/mm3 BUN 5 L (7-17) mg/dL Creatinine 0.5 L (0.7-1.2) mg/dL Glucose 170 H (65-100) mg/dL POC Glucose 179 H (70-105)
[2018-05-08] MEDS: PRAVACHOL PO SCH (22:05)
[2018-05-08] MEDS: LOVENOX SUB-Q SCH (22:05)
[2018-05-09] MEDS: ceFAZolin 2 GM in NACL 0.9% 100 ML IV SCH ×5 (01:17→20:26)
[2018-05-09] MEDS: NEURONTIN PO SCH ×3 (01:23→18:31)
[2018-05-09] MEDS: SODIUM CHLORIDE FLUSH SYRINGE 10 ML IV SCH ×3 (01:25→22:22)
[2018-05-09] MEDS: HumaLOG SUB-Q SCH ×4 (08:54→22:19)
[2018-05-09] MEDS: GLUCOPHAGE PO SCH ×2 (08:54→18:31)
--- NOTE | 2018-05-09 09:57 | Progress Note ---
Assessment and Plan Cultures: 04/30/2018 blood culture: No growth thus far 05/03/2018: blood culture: No growth thus far 04/30/2018 wound culture: MSSA, Group B Strep A/P: 58-year-old female with hypertension, diabetes, peripheral neuropathy related to diabetes, hyperlipidemia. Admitted with: 1) Sepsis: WBC and fever improving, secondary to right foot diabetic foot ulcer infected with associated cellulitis and superficial abscess: Cultures growing Group B Strep and MSSA. 2) Right Diabetic foot ulcer: MRI results show plantar forefoot skin ulcer. No evidence of osteomyelitis or soft tissue abscess on MRI. s/p Wound probed to bone during 05/06/18 debridement, will order OPAT for 4 weeks post I & D, hence treat as clinical osteomyelitis. 3) Diabetes mellitus type 2 uncontrolled: Recommend tight glycemic control. 4) Diabetic neuropathy: high risk for osteomyelitis. Recs: Continue IV Cefazolin higher dose 2 gm q6 hrs, D6 upon discharge will do ceftriaxone 2gm IV q 24H for 4 weeks until 06/03/18 order placed with case management f/u with ID clinic 06-04-18 [facility] M: [phone] O:[phone] Subjective Date of service: 05/09/18 Interval history: Patient seen and examined. Denies generalized pain, SOB or fevers. Discussion regarding OPAT therapy, verbalized understanding. Objective - Exam Narrative Exam: Constitutional: Alert, cooperative. no acute distress Head, Ears, Nose: Normocephalic, atraumatic. External ears, nose normal Eyes: Conjunctivae/corneas clear. No icterus. No ptosis. Neck: Supple, no meningeal signs Oral: dentition missing teeth, no thrush Cardiovascular: S1, S2 normal. Respiratory: Good air entry, clear to auscultation bilaterally GI: Soft, non-tender; bowel sounds normal. No peritoneal signs Musculoskeletal: s/p wound probed to bone during debridement, right foot in dressing, no drainage Skin: No rash or abscess Hem/Lymphatic: No palpable cervical or supraclavicular nodes. No lymphangitis Psych: Mood ok. Affect normal Neurological: Awake, alert, oriented. peripheral neuropathy + - Constitutional Vitals: Vital Signs Temp Pulse Resp BP Pulse Ox 99.4 F 92 H 20 105/49 93 05/09/18 06:36 05/09/18 06:36 05/09/18 06:36 05/09/18 06:36 05/09/18 06:36 Temperature -Last 24 Hours Temperature 99.4 F Temperature 99.6 F Temperature 99 F Temperature 98.0 F Temperature 98.7 F - Labs CBC & Chem 7: 05/09/18 13:53 05/09/18 13:53 Labs: Abnormal lab results 05/08/18 05/08/18 05/08/18 Range/Units 12:06 16:52 22:10 POC Glucose 154 H 198 H 148 H (70-105) 05/09/18 Range/Units 07:41 POC Glucose 157 H (70-105)
[2018-05-09] MEDS: ZESTRIL PO SCH (10:00)
[2018-05-09] MEDS: HCTZ PO SCH (10:00)
[2018-05-09] MEDS: HALFPRIN EC PO SCH (11:41)
[2018-05-09] MEDS: PEPCID PO SCH ×2 (11:41→22:18)
--- NOTE | 2018-05-09 13:30 | Progress Note ---
Assessment and Plan -MSSA Sepsis with Right foot abscess - s/p excisional debridement X2 by GS: - following blood and wound culture, MRI foot ruled out osteomyelitis, - ID following - Continue IV Cefazolin higher dose 2 gm q6 hrs, - upon discharge will do ceftriaxone 2gm IV q 24H for 4 weeks until 06/03/18 -Right foot cellulitis: treat with abx, ID is following -Poorly controlled DM, a1c 11.7: SSI, ada diet, adjust insulin to improve glycemic control -Diabetic neuropathy: continue gabapentin Dispo: continue inpatient care, wound culture finalized==>mssa, will need wound vac, IV abx on discharge. patient with out of state medicare Brief History Patient is a 58 yo Black woman with a history of NIDDM with neuropathy on gabapentin, hypertension and dyslipidemia who presents to [facility] ED with right foot pains on the ball of her foot that started about a week ago with difficulty ambulating and foul ordor with drainage. She just moved to [place] about 1 week ago from [facility]. Hospitalist Physical Gen: WDWN, NAD, Awake, Alert, Orientated HEENT: NCAT, EOMI, PERRL, OP Clear Neck: supple, no adenopathy, no thyromegaly, no JVD CVS/Heart: RRR, normal S1S2, pulses present bilaterally Chest/Lungs: CTA B, Symmetrical chest expansion, good air entry bilaterally GI/Abdomen: soft, NTND, good bowel sounds, no guarding or rebound /Bladder: no suprapubic tenderness, no CVA or paraspinal tenderness Extermity/Skin: right foot with dressing MSK: FROM x 4 Neuro: CN 2-12 grossly intact, no new focal deficits Psych: calm Subjective Date of service: 05/09/18 Interval history: Patient was seen and examined. Follow-up on current diagnosis right plantar foot infection. Overnight uneventful. Patient denies any chest pain, shortness breath, nausea/vomiting or severe headaches. waiting for wound vac and iv abx ar rangement. Objective - Constitutional Vitals: Vital Signs - 12hr 05/09/18 05/09/18 06:36 13:04 Temperature 99.4 F 98.9 F Pulse Rate 92 H 86 Respiratory 20 18 Rate Blood Pressure 105/49 118/56 O2 Sat by Pulse 93 91 Oximetry - Labs CBC & Chem 7: 05/10/18 06:35 05/09/18 13:53 Labs: Abnormal lab results 05/08/18 05/08/18 05/08/18 Range/Units 12:06 16:52 22:10 POC Glucose 154 H 198 H 148 H (70-105) 05/09/18 05/09/18 Range/Units 07:41 11:30 POC Glucose 157 H 197 H (70-105)
[2018-05-09 14:14] LABS: Hematocrit 25.4 % (30.3-42.9); Hemoglobin 8.3 gm/dl (10.1-14.3); Mean Corpuscular HGB Conc 33 % (30-34); Mean Corpuscular Volume 78 fl (79-97); Platelet Count 445 K/mm3 (140-440); Red Blood Count 3.24 M/mm3 (3.65-5.03); Red Cell Distribution Width 13.9 % (13.2-15.2)
[2018-05-09 14:36] LABS: BUN/Creatinine Ratio 8; Blood Urea Nitrogen 5 mg/dL (7-17); Calcium 8.2 mg/dL (8.4-10.2); Hemolysis Index 3
[2018-05-09] MEDS: DILAUDID IV PRN (14:48)
[2018-05-09] MEDS: DAKIN'S HALF STRENGTH TP SCH ×2 (15:00→22:21)
[2018-05-09] MEDS ORDERED: NACL 0.9% 500 ML 500 ML IV ONE (16:32)
[2018-05-09] MEDS: PRAVACHOL PO SCH (22:18)
[2018-05-09] MEDS: LOVENOX SUB-Q SCH (22:19)
[2018-05-09] MEDS: D5W/0.45% NACL/KCL 20 MEQ 20 MEQ/1,000 ML BAG IV SCH (22:26)
[2018-05-10] MEDS: NEURONTIN PO SCH ×3 (00:14→15:55)
[2018-05-10] MEDS: ceFAZolin 2 GM in NACL 0.9% 100 ML IV SCH ×4 (01:34→21:14)
[2018-05-10 07:08] LABS: Basophils # (Auto) 0.1 K/mm3 (0.0-0.1); Basophils % (Auto) 0.4 % (0.0-1.8); Eosinophils # (Auto) 0.2 K/mm3 (0.0-0.4); Eosinophils % (Auto) 1.2 % (0.0-4.3); Hematocrit 23.3 % (30.3-42.9); Hemoglobin 7.9 gm/dl (10.1-14.3); Lymphocytes # (Auto) 2.9 K/mm3 (1.2-5.4); Lymphocytes % (Auto) 18.9 % (13.4-35.0); Mean Corpuscular HGB Conc 34 % (30-34); Mean Corpuscular Volume 79 fl (79-97); Monocytes # (Auto) 1.1 K/mm3 (0.0-0.8); Monocytes % (Auto) 7.2 % (0.0-7.3); Platelet Count 413 K/mm3 (140-440); Red Blood Count 2.95 M/mm3 (3.65-5.03); Red Cell Distribution Width 13.9 % (13.2-15.2)
[2018-05-10] MEDS: HumaLOG SUB-Q SCH ×5 (08:47→22:13)
[2018-05-10] MEDS: GLUCOPHAGE PO SCH ×2 (08:47→18:52)
[2018-05-10] MEDS: HCTZ PO SCH (09:08)
[2018-05-10] MEDS: PEPCID PO SCH ×2 (09:08→21:15)
[2018-05-10] MEDS: HALFPRIN EC PO SCH (09:08)
[2018-05-10] MEDS: ZESTRIL PO SCH (09:08)
--- NOTE | 2018-05-10 10:49 | Progress Note ---
Assessment and Plan Cultures: 04/30/2018 blood culture: No growth thus far 05/03/2018: blood culture: No growth thus far 04/30/2018 wound culture: MSSA, Group B Strep A/P: 58-year-old female with hypertension, diabetes, peripheral neuropathy related to diabetes, hyperlipidemia. Admitted with: 1) Sepsis: Still spiking temperatures, leukocytosis improving, secondary to right foot diabetic foot ulcer infected with associated cellulitis and superficial abscess: Cultures growing Group B Strep and MSSA. 2) Right Diabetic foot ulcer: MRI results show plantar forefoot skin ulcer. No evidence of osteomyelitis or soft tissue abscess on MRI. s/p Wound probed to bone during 05/06/18 debridement, will order OPAT for 4 weeks post I & D, hence treat as clinical osteomyelitis. Jeovany order arterial doppler to evaluate arterial flow in light of persistent fevers. 3) Diabetes mellitus type 2 uncontrolled: Recommend tight glycemic control. 4) Diabetic neuropathy: high risk for osteomyelitis. Recs: Continue IV Cefazolin higher dose 2 gm q6 hrs, D7 upon discharge will do ceftriaxone 2gm IV q 24H for 4 weeks until 06/03/18 Will add Flagyl 500 mg IV every 8 hours for persistent fevers order placed with case management Arterial Doppler ordered to evaluate arterial flow in right foot in light of persistent fevers f/u with ID clinic 06-04-18 Dr. Houston will be learning solutions specialist this weekend, . Please call for questions. Sima Dumont NP [facility] M: [phone] O:[phone] Subjective Date of service: 05/10/18 Interval history: Patient seen and examined. Denies generalized pain, SOB or fevers. Discussion regarding OPAT therapy, verbalized understanding. Objective - Exam Narrative Exam: Constitutional: Alert, cooperative. no acute distress Head, Ears, Nose: Normocephalic, atraumatic. External ears, nose normal Eyes: Conjunctivae/corneas clear. No icterus. No ptosis. Neck: Supple, no meningeal signs Oral: dentition missing teeth, no thrush Cardiovascular: S1, S2 normal. Respiratory: Good air entry, clear to auscultation bilaterally GI: Soft, non-tender; bowel sounds normal. No peritoneal signs Musculoskeletal: s/p wound probed to bone during debridement, right foot in dressing, no drainage Skin: No rash or abscess Hem/Lymphatic: No palpable cervical or supraclavicular nodes. No lymphangitis Psych: Mood ok. Affect normal Neurological: Awake, alert, oriented. peripheral neuropathy + - Constitutional Vitals: Vital Signs Temp Pulse Resp BP Pulse Ox 99.3 F 80 20 138/71 93 05/10/18 05:15 05/10/18 09:08 05/10/18 05:15 05/10/18 09:08 05/10/18 05:15 Temperature -Last 24 Hours Temperature 99.3 F Temperature 100.4 F Temperature 100.2 F Temperature 98.9 F - Labs CBC & Chem 7: 05/10/18 06:35 05/09/18 13:53 Labs: Abnormal lab results 05/09/18 05/09/18 05/09/18 Range/Units 11:30 13:53 13:53 WBC 17.2 H (4.5-11.0) K/mm3 RBC 3.24 L (3.65-5.03) M/mm3 Hgb 8.3 L (10.1-14.3) gm/dl Hct 25.4 L (30.3-42.9) % MCV 78 L (79-97) fl MCH 26 L (28-32) pg Plt Count 445 H (140-440) K/mm3 [place] # (0.0-0.8) K/mm3 Seg Neutrophils % (40.0-70.0) % Seg Neutrophils # (1.8-7.7) K/mm3 Sodium 135 L (137-145) mmol/L Chloride 95.8 L (98-107) mmol/L BUN 5 L (7-17) mg/dL Creatinine 0.6 L (0.7-1.2) mg/dL Glucose 213 H (65-100) mg/dL POC Glucose 197 H (70-105) Calcium 8.2 L (8.4-10.2) mg/dL 05/09/18 05/09/18 05/10/18 Range/Units 16:42 20:34 06:35 WBC 15.4 H (4.5-11.0) K/mm3 RBC 2.95 L (3.65-5.03) M/mm3 Hgb 7.9 L (10.1-14.3) gm/dl Hct 23.3 L (30.3-42.9) % MCV (79-97) fl MCH 27 L (28-32) pg Plt Count (140-440) K/mm3 [place] # 1.1 H (0.0-0.8) K/mm3 Seg Neutrophils % 72.3 H (40.0-70.0) % Seg Neutrophils # 11.1 H (1.8-7.7) K/mm3 Sodium (137-145) mmol/L Chloride (98-107) mmol/L BUN (7-17) mg/dL Creatinine (0.7-1.2) mg/dL Glucose (65-100) mg/dL POC Glucose 175 H 167 H (70-105) Calcium (8.4-10.2) mg/dL 05/10/18 Range/Units 08:03 WBC (4.5-11.0) K/mm3 RBC (3.65-5.03) M/mm3 Hgb (10.1-14.3) gm/dl Hct (30.3-42.9) % MCV (79-97) fl MCH (28-32) pg Plt Count (140-440) K/mm3 [place] # (0.0-0.8) K/mm3 Seg Neutrophils % (40.0-70.0) % Seg Neutrophils # (1.8-7.7) K/mm3 Sodium (137-145) mmol/L Chloride (98-107) mmol/L BUN (7-17) mg/dL Creatinine (0.7-1.2) mg/dL Glucose (65-100) mg/dL POC Glucose 167 H (70-105) Calcium (8.4-10.2) mg/dL
--- NOTE | 2018-05-10 11:02 | Event Note ---
Date: 05/10/18 Discussed with wound care nurse yesterday regarding plan to place wound vac. Wound vac was not placed because wound nurse unable to obtain adequate seal. Dakins dressing was applied. I discussed with quality control projectionist rounding today. Will attempt to place wound vac.
--- NOTE | 2018-05-10 12:44 | Progress Note ---
Assessment and Plan -MSSA Sepsis with Right foot abscess - s/p excisional debridement X2 by GS: - following blood and wound culture, MRI foot ruled out osteomyelitis, - ID following - Continue IV Cefazolin higher dose 2 gm q6 hrs, - upon discharge will need ceftriaxone 2gm IV q 24H for 4 weeks until 06/03/18 - placed on wound vac today -Right foot cellulitis: treat with abx, ID is following -Poorly controlled DM, a1c 11.7: SSI, ada diet, adjust insulin to improve glycemic control -Diabetic neuropathy: continue gabapentin Dispo: continue inpatient care, wound culture finalized==>mssa, will need wound vac, IV abx on discharge. patient with out of state medicare Brief History Patient is a 58 yo Black woman with a history of NIDDM with neuropathy on gabapentin, hypertension and dyslipidemia who presents to [facility] ED with right foot pains on the ball of her foot that started about a week ago with difficulty ambulating and foul ordor with drainage. She just moved to [place] about 1 week ago from [facility]. Hospitalist Physical Gen: WDWN, NAD, Awake, Alert, Orientated HEENT: NCAT, EOMI, PERRL, OP Clear Neck: supple, no adenopathy, no thyromegaly, no JVD CVS/Heart: RRR, normal S1S2, pulses present bilaterally Chest/Lungs: CTA B, Symmetrical chest expansion, good air entry bilaterally GI/Abdomen: soft, NTND, good bowel sounds, no guarding or rebound /Bladder: no suprapubic tenderness, no CVA or paraspinal tenderness Extermity/Skin: right foot with dressing MSK: FROM x 4 Neuro: CN 2-12 grossly intact, no new focal deficits Psych: calm Subjective Date of service: 05/10/18 Interval history: Patient was seen and examined. Follow-up on current diagnosis right plantar foot infection. Overnight uneventful. Patient denies any chest pain, shortness breath, nausea/vomiting or severe headaches. waiting for wound vac and iv abx arrangement. Objective - Constitutional Vitals: Vital Signs - 12hr 05/10/18 05/10/18 05/10/18 05:15 09:08 11:43 Temperature 99.3 F 98.9 F Pulse Rate 82 80 87 Respiratory 20 18 Rate Blood Pressure 123/54 138/71 126/54 O2 Sat by Pulse 93 93 Oximetry - Labs CBC & Chem 7: 05/10/18 06:35 05/09/18 13:53 Labs: Abnormal lab results 05/09/18 05/09/18 05/09/18 Range/Units 13:53 13:53 16:42 WBC 17.2 H (4.5-11.0) K/mm3 RBC 3.24 L (3.65-5.03) M/mm3 Hgb 8.3 L (10.1-14.3) gm/dl Hct 25.4 L (30.3-42.9) % MCV 78 L (79-97) fl MCH 26 L (28-32) pg Plt Count 445 H (140-440) K/mm3 [place] # (0.0-0.8) K/mm3 Seg Neutrophils % (40.0-70.0) % Seg Neutrophils # (1.8-7.7) K/mm3 Sodium 135 L (137-145) mmol/L Chloride 95.8 L (98-107) mmol/L BUN 5 L (7-17) mg/dL Creatinine 0.6 L (0.7-1.2) mg/dL Glucose 213 H (65-100) mg/dL POC Glucose 175 H (70-105) Calcium 8.2 L (8.4-10.2) mg/dL 05/09/18 05/10/18 05/10/18 Range/Units 20:34 06:35 08:03 WBC 15.4 H (4.5-11.0) K/mm3 RBC 2.95 L (3.65-5.03) M/mm3 Hgb 7.9 L (10.1-14.3) gm/dl Hct 23.3 L (30.3-42.9) % MCV (79-97) fl MCH 27 L (28-32) pg Plt Count (140-440) K/mm3 [place] # 1.1 H (0.0-0.8) K/mm3 Seg Neutrophils % 72.3 H (40.0-70.0) % Seg Neutrophils # 11.1 H (1.8-7.7) K/mm3 Sodium (137-145) mmol/L Chloride (98-107) mmol/L BUN (7-17) mg/dL Creatinine (0.7-1.2) mg/dL Glucose (65-100) mg/dL POC Glucose 167 H 167 H (70-105) Calcium (8.4-10.2) mg/dL 05/10/18 Range/Units 11:11 WBC (4.5-11.0) K/mm3 RBC (3.65-5.03) M/mm3 Hgb (10.1-14.3) gm/dl Hct (30.3-42.9) % MCV (79-97) fl MCH (28-32) pg Plt Count (140-440) K/mm3 [place] # (0.0-0.8) K/mm3 Seg Neutrophils % (40.0-70.0) % Seg Neutrophils # (1.8-7.7) K/mm3 Sodium (137-145) mmol/L Chloride (98-107) mmol/L BUN (7-17) mg/dL Creatinine (0.7-1.2) mg/dL Glucose (65-100) mg/dL POC Glucose 191 H (70-105) Calcium (8.4-10.2) mg/dL
[2018-05-10] MEDS: SODIUM CHLORIDE FLUSH SYRINGE 10 ML IV SCH ×2 (13:01→21:17)
[2018-05-10] MEDS: DAKIN'S HALF STRENGTH TP SCH ×2 (13:09→21:16)
[2018-05-10] MEDS: TYLENOL PO PRN (14:36)
[2018-05-10] MEDS: D5W/0.45% NACL/KCL 20 MEQ 20 MEQ/1,000 ML BAG IV SCH (15:55)
[2018-05-10] MEDS: FLAGYL 500 MG/100 ML 500 MG/100 ML BAG IV SCH (18:52)
--- NOTE | 2018-05-10 20:13 | Vascular Lab Report ---
FINAL REPORT PROCEDURE: Right lower extremity duplex arterial ultrasound. TECHNIQUE: Duplex Doppler ultrasound of either the RIGHT lower extremity arteries or arterial bypass grafts was performed with image documentation. CPT 45415-CH HISTORY: evaluation of arterial flow/ persistent fevers, right foot ulcer. COMPARISON: No prior studies are available for comparison. FINDINGS: Arterial waveforms: Triphasic throughout except for monophasic in the anterior tibial artery and dors fred pedis artery. Thrombus: None. Stenosis: None. Color signal: Normal. Significant segmental velocity differential: None. Arterial bypass graft: Not present. IMPRESSION: No evidence of significant arterial insufficiency in the RIGHT lower extremity.
[2018-05-10] MEDS: LOVENOX SUB-Q SCH (21:15)
[2018-05-10] MEDS: PRAVACHOL PO SCH (21:15)
[2018-05-11] MEDS: NEURONTIN PO SCH ×3 (00:51→18:19)
[2018-05-11] MEDS: FLAGYL 500 MG/100 ML 500 MG/100 ML BAG IV SCH ×3 (01:02→18:16)
[2018-05-11] MEDS: ceFAZolin 2 GM in NACL 0.9% 100 ML IV SCH ×4 (02:27→21:33)
[2018-05-11] MEDS: D5W/0.45% NACL/KCL 20 MEQ 20 MEQ/1,000 ML BAG IV SCH (06:37)
[2018-05-11] MEDS: GLUCOPHAGE PO SCH ×2 (08:31→18:17)
[2018-05-11] MEDS: HumaLOG SUB-Q SCH ×4 (08:33→21:33)
[2018-05-11] MEDS: SODIUM CHLORIDE FLUSH SYRINGE 10 ML IV SCH ×2 (12:45→21:31)
[2018-05-11] MEDS: HCTZ PO SCH (12:46)
[2018-05-11] MEDS: PEPCID PO SCH ×2 (12:46→21:31)
[2018-05-11] MEDS: ZESTRIL PO SCH (12:46)
[2018-05-11] MEDS: DAKIN'S HALF STRENGTH TP SCH ×2 (12:47→21:39)
[2018-05-11] MEDS: HALFPRIN EC PO SCH (12:47)
--- NOTE | 2018-05-11 14:55 | Progress Note ---
Assessment and Plan -MSSA Sepsis with Right foot abscess - s/p excisional debridement X2 by GS: - following blood and wound culture, MRI foot ruled out osteomyelitis, - ID following - Continue IV Cefazolin higher dose 2 gm q6 hrs, - upon discharge will need ceftriaxone 2gm IV q 24H for 4 weeks until 06/03/18 - placed on wound vac -Right foot cellulitis: treat with abx, ID is following -Poorly controlled DM, a1c 11.7: SSI, ada diet, adjust insulin to improve glycemic control -Diabetic neuropathy: continue gabapentin Dispo: continue inpatient care, wound culture finalized==>Mssa, will need wound vac, IV abx on discharge. patient with out of state medicare. Brief History Patient is a 58 yo Black woman with a history of NIDDM with neuropathy on gabapentin, hypertension and dyslipidemia who presents to [facility] ED with right foot pains on the ball of her foot that started about a week ago with difficulty ambulating and foul ordor with drainage. She just moved to [place] about 1 week ago from [facility]. Hospitalist Physical Gen: WDWN, NAD, Awake, Alert, Orientated HEENT: NCAT, EOMI, PERRL, OP Clear Neck: supple, no adenopathy, no thyromegaly, no JVD CVS/Heart: RRR, normal S1S2, pulses present bilaterally Chest/Lungs: CTA B, Symmetrical chest expansion, good air entry bilaterally GI/Abdomen: soft, NTND, good bowel sounds, no guarding or rebound /Bladder: no suprapubic tenderness, no CVA or paraspinal tenderness Extermity/Skin: right foot with dressing MSK: FROM x 4 Neuro: CN 2-12 grossly intact, no new focal deficits Psych: calm Subjective Date of service: 05/11/18 Interval history: Patient was seen and examined. Follow-up on current diagnosis right plantar foot infection. Overnight uneventful. Patient denies any chest pain, shortness breath, nausea/vomiting or severe headaches. waiting for wound vac and iv abx arrangement. Objective - Constitutional Vitals: Vital Signs - 12hr 05/11/18 05/11/18 05:07 11:34 Temperature 99.6 F 99.9 F H Pulse Rate 84 Respiratory 20 20 Rate Blood Pressure 140/67 136/72 O2 Sat by Pulse 94 Oximetry - Labs CBC & Chem 7: 05/10/18 06:35 05/09/18 13:53 Labs: Abnormal lab results 05/10/18 05/10/18 05/11/18 Range/Units 16:23 21:08 07:23 POC Glucose 186 H 189 H 169 H (70-105) 05/11/18 Range/Units 11:37 POC Glucose 208 H (70-105)
[2018-05-11] MEDS: LOVENOX SUB-Q SCH (21:31)
[2018-05-11] MEDS: PRAVACHOL PO SCH (21:31)
[2018-05-12] MEDS: ceFAZolin 2 GM in NACL 0.9% 100 ML IV SCH ×4 (01:46→21:17)
[2018-05-12] MEDS: FLAGYL 500 MG/100 ML 500 MG/100 ML BAG IV SCH ×3 (01:46→18:20)
[2018-05-12] MEDS: D5W/0.45% NACL/KCL 20 MEQ 20 MEQ/1,000 ML BAG IV SCH ×2 (01:46→18:28)
[2018-05-12] MEDS: HumaLOG SUB-Q SCH ×4 (08:27→23:30)
[2018-05-12] MEDS: NEURONTIN PO SCH ×4 (08:28→23:36)
[2018-05-12] MEDS: GLUCOPHAGE PO SCH ×2 (08:28→18:26)
--- NOTE | 2018-05-12 09:02 | Progress Note ---
Assessment and Plan -MSSA Sepsis with Right foot abscess - s/p excisional debridement X2 by GS: - following blood and wound culture, MRI foot ruled out osteomyelitis, - ID following - Continue IV Cefazolin higher dose 2 gm q6 hrs, - upon discharge will need ceftriaxone 2gm IV q 24H for 4 weeks until 06/03/18 - placed on wound vac -Right foot cellulitis: treat with abx, ID is following -Poorly controlled DM, a1c 11.7: SSI, ada diet, adjust insulin to improve glycemic control -Diabetic neuropathy: continue gabapentin Dispo: continue inpatient care, wound culture finalized==>Mssa, will need wound vac, IV abx on discharge. patient with out of state medicare. Brief History Patient is a 58 yo Black woman with a history of NIDDM with neuropathy on gabapentin, hypertension and dyslipidemia who presents to [facility] ED with right foot pains on the ball of her foot that started about a week ago with difficulty ambulating and foul ordor with drainage. She just moved to [place] about 1 week ago from [facility]. Hospitalist Physical Gen: WDWN, NAD, Awake, Alert, Orientated HEENT: NCAT, EOMI, PERRL, OP Clear Neck: supple, no adenopathy, no thyromegaly, no JVD CVS/Heart: RRR, normal S1S2, pulses present bilaterally Chest/Lungs: CTA B, Symmetrical chest expansion, good air entry bilaterally GI/Abdomen: soft, NTND, good bowel sounds, no guarding or rebound /Bladder: no suprapubic tenderness, no CVA or paraspinal tenderness Extermity/Skin: right foot with dressing MSK: FROM x 4 Neuro: CN 2-12 grossly intact, no new focal deficits Psych: calm Subjective Date of service: 05/12/18 Interval history: Patient was seen and examined. Follow-up on current diagnosis right plantar foot infection. Overnight uneventful. Patient denies any chest pain, shortness breath, nausea/vomiting or severe headaches. waiting for wound vac and iv abx arrangement. Objective - Constitutional Vitals: Vital Signs - 12hr 05/11/18 05/12/18 23:42 06:18 Temperature 99.1 F 98.8 F Pulse Rate 87 87 Respiratory 18 18 Rate Blood Pressure 140/67 129/72 O2 Sat by Pulse 92 91 Oximetry - Labs CBC & Chem 7: 05/10/18 06:35 02/21/19 13:53 Labs: Abnormal lab results 05/11/18 05/11/18 05/11/18 Range/Units 11:37 16:43 21:07 POC Glucose 208 H 169 H 134 H (70-105) 05/12/18 Range/Units 07:33 POC Glucose 175 H (70-105)
[2018-05-12] MEDS: DAKIN'S HALF STRENGTH TP SCH ×2 (10:00→23:30)
--- NOTE | 2018-05-12 10:55 | Progress Note ---
Assessment and Plan Cultures: 04/30/2018 blood culture: No growth thus far 05/03/2018: blood culture: No growth thus far 04/30/2018 wound culture: MSSA, Group B Strep A/P: 58-year-old female with hypertension, diabetes, peripheral neuropathy related to diabetes, hyperlipidemia. Admitted with: 1) Sepsis: Fevers and leukocytosis improving, secondary to right foot diabetic foot ulcer infected with associated cellulitis and superficial abscess: Cultures growing Group B Strep and MSSA. 2) Right Diabetic foot ulcer: MRI results show plantar forefoot skin ulcer. No evidence of osteomyelitis or soft tissue abscess on MRI. s/p Wound probed to bone during 05/06/18 debridement, will order OPAT for 4 weeks post I & D, hence treat as clinical osteomyelitis. Jeovany order arterial doppler to evaluate arterial flow in light of persistent fevers. Arterial Doppler - No evidence of significant arterial insufficiency in the RIGHT lower extremity. 3) Diabetes mellitus type 2 uncontrolled: Recommend tight glycemic control. 4) Diabetic neuropathy: high risk for osteomyelitis. Recs: Continue IV Cefazolin higher dose 2 gm q6 hrs, D9 upon discharge will do ceftriaxone 2gm IV q 24H and Flagyl 500 mg PO every 8 hours for 4 weeks until 06/03/18 Will add Flagyl 500 mg IV every 8 hours for persistent fevers, D3 order placed with case management f/u with ID clinic 06-04-18 [facility] M: [phone] O:[phone] Subjective Date of service: 05/12/18 Interval history: Patient seen and examined. Denies generalized pain, SOB or fevers. Discussion regarding OPAT therapy, verbalized understanding. Objective - Exam Narrative Exam: Constitutional: Alert, cooperative. no acute distress Head, Ears, Nose: Normocephalic, atraumatic. External ears, nose normal Eyes: Conjunctivae/corneas clear. No icterus. No ptosis. Neck: Supple, no meningeal signs Oral: dentition missing teeth, no thrush Cardiovascular: S1, S2 normal. Respiratory: Good air entry, clear to auscultation bilaterally GI: Soft, non-tender; bowel sounds normal. No peritoneal signs Musculoskeletal: s/p wound probed to bone during debridement, right foot in d ressing, no drainage Skin: No rash or abscess Hem/Lymphatic: No palpable cervical or supraclavicular nodes. No lymphangitis Psych: Mood ok. Affect normal Neurological: Awake, alert, oriented. peripheral neuropathy + - Constitutional Vitals: Vital Signs Temp Pulse Resp BP Pulse Ox 98.8 F 87 18 129/72 91 05/12/18 06:18 05/12/18 06:18 05/12/18 06:18 05/12/18 06:18 05/12/18 06:18 Temperature -Last 24 Hours Temperature 98.8 F Temperature 99.1 F Temperature 99.4 F Temperature 99.9 F - Labs CBC & Chem 7: 05/12/18 12:15 05/12/18 12:15 Labs: Abnormal lab results 05/11/18 05/11/18 05/11/18 Range/Units 11:37 16:43 21:07 POC Glucose 208 H 169 H 134 H (70-105) 05/12/18 Range/Units 07:33 POC Glucose 175 H (70-105)
[2018-05-12] MEDS: ZESTRIL PO SCH (12:07)
[2018-05-12] MEDS: HALFPRIN EC PO SCH (12:07)
[2018-05-12] MEDS: PEPCID PO SCH ×2 (12:07→21:18)
[2018-05-12] MEDS: SODIUM CHLORIDE FLUSH SYRINGE 10 ML IV SCH ×2 (12:08→21:19)
[2018-05-12] MEDS: HCTZ PO SCH (12:23)
[2018-05-12 12:31] LABS: Hematocrit 25.9 % (30.3-42.9); Hemoglobin 8.5 gm/dl (10.1-14.3); Mean Corpuscular HGB Conc 33 % (30-34); Mean Corpuscular Volume 79 fl (79-97); Platelet Count 515 K/mm3 (140-440); Red Blood Count 3.28 M/mm3 (3.65-5.03); Red Cell Distribution Width 13.6 % (13.2-15.2)
[2018-05-12 12:52] LABS: BUN/Creatinine Ratio 8; Blood Urea Nitrogen 3 mg/dL (7-17); Calcium 8.3 mg/dL (8.4-10.2); Hemolysis Index 3
[2018-05-12] MEDS: LOVENOX SUB-Q SCH (21:19)
[2018-05-12] MEDS: PRAVACHOL PO SCH (21:19)
[2018-05-13] MEDS: FLAGYL 500 MG/100 ML 500 MG/100 ML BAG IV SCH ×3 (02:09→17:39)
[2018-05-13] MEDS: ceFAZolin 2 GM in NACL 0.9% 100 ML IV SCH ×4 (02:10→20:13)
[2018-05-13] MEDS: HumaLOG SUB-Q SCH ×4 (08:21→22:15)
[2018-05-13] MEDS: NEURONTIN PO SCH ×3 (08:32→23:22)
[2018-05-13] MEDS: GLUCOPHAGE PO SCH ×2 (08:32→17:32)
--- NOTE | 2018-05-13 09:31 | Progress Note ---
Assessment and Plan Cultures: 04/30/2018 blood culture: No growth thus far 05/03/2018: blood culture: No growth thus far 04/30/2018 wound culture: MSSA, Group B Strep A/P: 58-year-old female with hypertension, diabetes, peripheral neuropathy related to diabetes, hyperlipidemia. Admitted with: 1) Sepsis: Fevers and leukocytosis continuing, secondary to right foot diabetic foot ulcer infected with associated cellulitis and superficial abscess: Cultures growing Group B Strep and MSSA. 2) Right Diabetic foot ulcer: MRI results show plantar forefoot skin ulcer. No evidence of osteomyelitis or soft tissue abscess on MRI. s/p Wound probed to bone during 05/06/18 debridement, will order OPAT for 4 weeks post I & D, hence treat as clinical osteomyelitis. Fevers and leukocytosis continue to persist, wound slightly worse today. Will need further debridement and exploration. Dr. Crockett is adding patient to the OR tomorrow. Arterial Doppler - No evidence of significant arterial insufficiency in the RIGHT lower extremity. 3) Diabetes mellitus type 2 uncontrolled: Recommend tight glycemic control. 4) Diabetic neuropathy: high risk for osteomyelitis. Recs: Continue IV Cefazolin higher dose 2 gm q6 hrs, D10 Agree with further debridement and exploration tomorrow, please send surgical cultures. Start Levaquin 750mg IV every 24 hours while inpatient upon discharge will do ceftriaxone 2gm IV q 24H and Flagyl 500 mg PO every 8 hours for 4 weeks until 06/03/18 Will add Flagyl 500 mg IV every 8 hours for persistent fevers, D4 order placed with case management f/u with ID clinic 06-04-18 [facility] M: [phone] O:[phone] Subjective Date of service: 05/13/18 Interval history: Patient seen and examined. Denies generalized pain, SOB . Still spiking fevers. Objective - Exam Narrative Exam: Constitutional: Alert, cooperative. no acute distress Head, Ears, Nose: Normocephalic, atraumatic. External ears, nose normal Eyes: Conjunctivae/corneas clear. No icterus. No ptosis. Neck: Supple, no meningeal signs Oral: dentition missing teeth, no thrush Cardiovascular: S1, S2 normal. Respiratory: Good air entry, clear to auscultation bilaterally GI: Soft, non-tender; bowel sounds normal. No peritoneal signs Musculoskeletal: s/p wound probed to bone during debridement, right foot in dressing, no drainage Skin: No rash or abscess Hem/Lymphatic: No palpable cervical or supraclavicular nodes. No lymphangitis Psych: Mood ok. Affect normal Neurological: Awake, alert, oriented. peripheral neuropathy + - Constitutional Vitals: Vital Signs Temp Pulse Resp BP Pulse Ox 98.8 F 85 18 134/59 90 05/13/18 05:27 05/13/18 05:27 05/13/18 05:27 05/13/18 05:27 05/13/18 05:27 Temperature -Last 24 Hours Temperature 98.8 F Temperature 99.4 F Temperature 100.0 F Temperature 99.8 F - Labs CBC & Chem 7: 05/13/18 10:40 05/12/18 12:15 Labs: Abnormal lab results 05/12/18 05/12/18 05/12/18 Range/Units 11:57 12:15 12:15 WBC 15.1 H (4.5-11.0) K/mm3 RBC 3.28 L (3.65-5.03) M/mm3 Hgb 8.5 L (10.1-14.3) gm/dl Hct 25.9 L (30.3-42.9) % MCH 26 L (28-32) pg Plt Count 515 H (140-440) K/mm3 Sodium 133 L (137-145) mmol/L BUN 3 L (7-17) mg/dL Creatinine 0.4 L (0.7-1.2) mg/dL Glucose 158 H (65-100) mg/dL POC Glucose 160 H (70-105) Calcium 8.3 L (8.4-10.2) mg/dL 05/12/18 05/12/18 Range/Units 16:33 21:50 WBC (4.5-11.0) K/mm3 RBC (3.65-5.03) M/mm3 Hgb (10.1-14.3) gm/dl Hct (30.3-42.9) % MCH (28-32) pg Plt Count (140-440) K/mm3 Sodium (137-145) mmol/L BUN (7-17) mg/dL Creatinine (0.7-1.2) mg/dL Glucose (65-100) mg/dL POC Glucose 163 H 140 H (70-105) Calcium (8.4-10.2) mg/dL
[2018-05-13] MEDS: HCTZ PO SCH (11:19)
[2018-05-13] MEDS: PEPCID PO SCH ×2 (11:20→22:15)
[2018-05-13] MEDS: HALFPRIN EC PO SCH (11:20)
[2018-05-13] MEDS: DAKIN'S HALF STRENGTH TP SCH ×2 (11:20→23:18)
[2018-05-13 11:23] LABS: Basophils # (Auto) 0.1 K/mm3 (0.0-0.1); Basophils % (Auto) 0.5 % (0.0-1.8); Eosinophils # (Auto) 0.1 K/mm3 (0.0-0.4); Eosinophils % (Auto) 0.9 % (0.0-4.3); Hematocrit 25.6 % (30.3-42.9); Hemoglobin 8.5 gm/dl (10.1-14.3); Lymphocytes # (Auto) 2.4 K/mm3 (1.2-5.4); Lymphocytes % (Auto) 16.9 % (13.4-35.0); Mean Corpuscular HGB Conc 33 % (30-34); Mean Corpuscular Volume 80 fl (79-97); Monocytes # (Auto) 1.1 K/mm3 (0.0-0.8); Monocytes % (Auto) 7.3 % (0.0-7.3); Platelet Count 512 K/mm3 (140-440); Red Cell Distribution Width 14.1 % (13.2-15.2)
[2018-05-13] MEDS: SODIUM CHLORIDE FLUSH SYRINGE 10 ML IV SCH ×2 (11:23→22:16)
[2018-05-13] MEDS: ZESTRIL PO SCH (11:24)
--- NOTE | 2018-05-13 12:32 | Progress Note ---
Assessment and Plan 58 yo F s/p excisional debridement of right infected diabetic foot wound on 05/06/18 1. infected diabetic R foot ulcer 2. poorly controlled DM 3. sepsis due to #1 Plan: 1. diabetic diet, NPO p MN tonight 2. strict glucose control. Hb A1C is 11.7 3. wound care daily - wound slightly worse today. Needs further debridement and exploration. Will add on for OR tomorrow. Patient is agreeable. 4. cultures showed group b strep and staph aureus, c/w abx. 5. non wt bearing right foot D/W ID and Dr. Rebolledo Thank you, please call with questions Subjective Date of service: 05/13/18 Narrative: Pt seen and examined. Has been having low grade temperature. Wound vac has been in place with good seal. Objective Vital Signs - 12hr 05/13/18 05/13/18 05/13/18 05:27 10:56 11:24 Temperature 98.8 F 98.8 F Pulse Rate 85 79 85 Respiratory 18 20 Rate Blood Pressure 134/59 135/67 134/59 O2 Sat by Pulse 90 93 Oximetry - General physical appearance Narrative Exam: Gen: AAOx3. NAD CV: S1, S2+ resp: even and unlabored Ext; R foot wound vac dressing removed and one piece of black foam packing removed from wound. Wound base with 75% thick adherent slough. Periwound skin is clean and healthy. Wound probed with gloves finger and small loculations broken up. A small amount of seropurulent fluid expressed from these area, especially at the inferior aspect of the wound. Wound bed packed with 2 pieces of gauze moistened with dakins. Covered with dry 4x4 gauze, ABD pad and wrapped with kerlex. - Labs 05/13/18 10:40 05/12/18 12:15 Diabetes panel 05/12/18 Range/Units 12:15 Sodium 133 L (137-145) mmol/L Potassium 4.0 (3.6-5.0) mmol/L Chloride 98.1 (98-107) mmol/L Carbon Dioxide 26 (22-30) mmol/L BUN 3 L (7-17) mg/dL Creatinine 0.4 L (0.7-1.2) mg/dL Glucose 158 H (65-100) mg/dL Calcium 8.3 L (8.4-10.2) mg/dL Calcium panel 05/12/18 Range/Units 12:15 Calcium 8.3 L (8.4-10.2) mg/dL Pituitary panel 05/12/18 Range/Units 12:15 Sodium 133 L (137-145) mmol/L Potassium 4.0 (3.6-5.0) mmol/L Chloride 98.1 (98-107) mmol/L Carbon Dioxide 26 (22-30) mmol/L BUN 3 L (7-17) mg/dL Creatinine 0.4 L (0.7-1.2) mg/dL Glucose 158 H (65-100) mg/dL Calcium 8.3 L (8.4-10.2) mg/dL Adrenal panel 05/12/18 Range/Units 12:15 Sodium 133 L (137-145) mmol/L Potassium 4.0 (3.6-5.0) mmol/L Chloride 98.1 (98-107) mmol/L Carbon Dioxide 26 (22-30) mmol/L BUN 3 L (7-17) mg/dL Creatinine 0.4 L (0.7-1.2) mg/dL Glucose 158 H (65-100) mg/dL Calcium 8.3 L (8.4-10.2) mg/dL
--- NOTE | 2018-05-13 16:11 | Progress Note ---
Assessment and Plan -MSSA Sepsis with Right foot abscess - s/p excisional debridement X2 by GS: - following blood and wound culture, MRI foot ruled out osteomyelitis, - ID following, Continue IV Cefazolin higher dose 2 gm q6 hrs, - upon discharge will need ceftriaxone 2gm IV q 24H for 4 weeks until 06/03/18 - placed on wound vac - GS evaluated the wound today and recommended another debridement for tomorrow -Right foot cellulitis: treat with abx, ID is following -Poorly controlled DM, a1c 11.7: SSI, ada diet, adjust insulin to improve glycemic control -Diabetic neuropathy: continue gabapentin Dispo: continue inpatient care, wound culture finalized==>Mssa, will need wound vac, IV abx on discharge. patient with out of state medicare. Brief History Patient is a 58 yo Black woman with a history of NIDDM with neuropathy on gabapentin, hypertension and dyslipidemia who presents to [facility] ED with right foot pains on the ball of her foot that started about a week ago with difficulty ambulating and foul ordor with drainage. She just moved to [place] about 1 week ago from [facility]. Hospitalist Physical Gen: WDWN, NAD, Awake, Alert, Orientated HEENT: NCAT, EOMI, PERRL, OP Clear Neck: supple, no adenopathy, no thyromegaly, no JVD CVS/Heart: RRR, normal S1S2, pulses present bilaterally Chest/Lungs: CTA B, Symmetrical chest expansion, good air entry bilaterally GI/Abdomen: soft, NTND, good bowel sounds, no guarding or rebound /Bladder: no suprapubic tenderness, no CVA or paraspinal tenderness Extermity/Skin: right foot with dressing MSK: FROM x 4 Neuro: CN 2-12 grossly intact, no new focal deficits Psych: calm Subjective Date of service: 05/13/18 Interval history: Patient was seen and examined. Follow-up on current diagnosis right plantar foot infection. Overnight uneventful. Patient denies any chest pain, shortness breath, nausea/vomiting or severe headaches. Patient need further debridement tomorrow and for wound vac and iv abx arrangement. Objective - Constitutional Vitals: Vital Signs - 12hr 05/13/18 05/13/18 05/13/18 05:27 10:56 11:24 Temperature 98.8 F 98.8 F Pulse Rate 85 79 85 Respiratory 18 20 Rate Blood Pressure 134/59 135/67 134/59 O2 Sat by Pulse 90 93 Oximetry - Labs CBC & Chem 7: 05/13/18 10:40 05/12/18 12:15 Labs: Abnormal lab results 05/12/18 05/12/18 05/13/18 Range/Units 16:33 21:50 08:21 WBC (4.5-11.0) K/mm3 RBC (3.65-5.03) M/mm3 Hgb (10.1-14.3) gm/dl Hct (30.3-42.9) % MCH (28-32) pg Plt Count (140-440) K/mm3 [place] # (0.0-0.8) K/mm3 Seg Neutrophils % (40.0-70.0) % Seg Neutrophils # (1.8-7.7) K/mm3 POC Glucose 163 H 140 H 178 H (70-105) 05/13/18 05/13/18 Range/Units 10:40 12:03 WBC 14.4 H (4.5-11.0) K/mm3 RBC 3.20 L (3.65-5.03) M/mm3 Hgb 8.5 L (10.1-14.3) gm/dl Hct 25.6 L (30.3-42.9) % MCH 27 L (28-32) pg Plt Count 512 H (140-440) K/mm3 [place] # 1.1 H (0.0-0.8) K/mm3 Seg Neutrophils % 74.4 H (40.0-70.0) % Seg Neutrophils # 10.7 H (1.8-7.7) K/mm3 POC Glucose 193 H (70-105)
--- NOTE | 2018-05-13 17:20 | Anesthesia Consultation ---
Anesthesia Consult and Med Hx Date of service: 05/13/18 - Airway Anesthetic Teeth Evaluation: Poor (multiple missing teeth. Loose bottom left incisor.) ROM Head & Neck: Adequate Mental/Hyoid Distance: Adequate Mallampati Class: Class III Intubation Access Assessment: Possibly Difficult - Pulmonary Exam CTA: Yes - Cardiac Exam Cardiac Exam: RRR - Pre-Operative Health Status ASA Pre-Surgery Classification: ASA3 Proposed Anesthetic Plan: General - Pulmonary Hx Smoking: No Hx Respiratory Symptoms: No SOB: No COPD: No - Cardiovascular System Hx Hypertension: Yes Hx Heart Attack/AMI: No Hx Percutaneous Transluminal Coronary Angioplasty (PTCA): No Hx Cardia Arrhythmia: No - Central Nervous System Hx Seizures: No CVA: No - Gastrointestinal Hx Gastroesophageal Reflux Disease: No - Endocrine Hx Renal Disease: No Hx Liver Disease: No Hx Insulin Dependent Diabetes: Yes (poorly controlled; complicated by neuropathy) Hx Thyroid Disease: No - Hematic Hx Anemia: Yes - Other Systems Hx Obesity: Yes - Additional Comments Anesthesia Medical History Comments: No hx anesthestic complications. MSSA foot ulcer s/p debridement scheduled for repeat debridement. No bacteremia.
[2018-05-13] MEDS: LEVAQUIN 750MG/150ML 750 MG/150 ML BAG IV SCH (17:33)
[2018-05-13] MEDS: LOVENOX SUB-Q SCH (22:14)
[2018-05-13] MEDS: PRAVACHOL PO SCH (22:14)
[2018-05-14] MEDS: ceFAZolin 2 GM in NACL 0.9% 100 ML IV SCH ×4 (02:15→20:31)
[2018-05-14] MEDS: FLAGYL 500 MG/100 ML 500 MG/100 ML BAG IV SCH ×3 (02:16→18:14)
[2018-05-14] MEDS ORDERED: VERSED IV NR (06:00)
[2018-05-14 06:07] LABS: Basophils # (Auto) 0.1 K/mm3 (0.0-0.1); Basophils % (Auto) 0.5 % (0.0-1.8); Eosinophils # (Auto) 0.1 K/mm3 (0.0-0.4); Eosinophils % (Auto) 0.9 % (0.0-4.3); Hemoglobin 8.9 gm/dl (10.1-14.3); Lymphocytes # (Auto) 2.6 K/mm3 (1.2-5.4); Lymphocytes % (Auto) 20.5 % (13.4-35.0); Mean Corpuscular HGB Conc 33 % (30-34); Mean Corpuscular Volume 79 fl (79-97); Monocytes # (Auto) 0.9 K/mm3 (0.0-0.8); Monocytes % (Auto) 6.7 % (0.0-7.3); Platelet Count 510 K/mm3 (140-440); Red Blood Count 3.41 M/mm3 (3.65-5.03); Red Cell Distribution Width 14.1 % (13.2-15.2)
[2018-05-14 06:15] LABS: BUN/Creatinine Ratio 8; Blood Urea Nitrogen 4 mg/dL (7-17); Calcium 8.7 mg/dL (8.4-10.2); Hemolysis Index 1
[2018-05-14] MEDS: HumaLOG SUB-Q SCH ×4 (07:30→23:16)
[2018-05-14] MEDS: D5W/0.45% NACL/KCL 20 MEQ 20 MEQ/1,000 ML BAG IV SCH (07:59)
[2018-05-14] MEDS: GLUCOPHAGE PO SCH ×2 (08:00→16:34)
[2018-05-14] MEDS: NEURONTIN PO SCH ×2 (08:00→16:33)
--- NOTE | 2018-05-14 09:45 | Progress Note ---
Assessment and Plan Cultures: 04/30/2018 blood culture: No growth thus far 05/03/2018: blood culture: No growth thus far 04/30/2018 wound culture: MSSA, Group B Strep A/P: 58-year-old female with hypertension, diabetes, peripheral neuropathy related to diabetes, hyperlipidemia. Admitted with: 1) Sepsis: no fevers in > 24 hours, leukocytosis continuing, secondary to right foot diabetic foot ulcer infected with associated cellulitis and superficial abscess: Cultures growing Group B Strep and MSSA. 2) Right Diabetic foot ulcer: MRI results show plantar forefoot skin ulcer. No evidence of osteomyelitis or soft tissue abscess on MRI. s/p Wound probed to bone during 05/06/18 debridement, will order OPAT for 4 weeks post I & D, hence treat as clinical osteomyelitis. wound slightly worse Will need further debridement and exploration. Dr. Crockett is adding patient to the OR today. Arterial Doppler - No evidence of significant arterial insufficiency in the RIGHT lower extremity. 3) Diabetes mellitus type 2 uncontrolled: Recommend tight glycemic control. 4) Diabetic neuropathy: high risk for osteomyelitis. Recs: Continue IV Cefazolin higher dose 2 gm q6 hrs, D11 Agree with further debridement and exploration today, please send surgical cultures. Start Levaquin 750mg IV every 24 hours while inpatient, D3 upon discharge will do ceftriaxone 2gm IV q 24H and Flagyl 500 mg PO every 8 hours for 4 weeks until 06/03/18 Will add Flagyl 500 mg IV every 8 hours for persistent fevers, D5 order placed with case management f/u with ID clinic 06-04-18 [facility] M: [phone] O:[phone] Subjective Date of service: 05/14/18 Objective - Constitutional Vitals: Vital Signs Temp Pulse Resp BP Pulse Ox 97.8 F 81 18 135/70 95 05/14/18 04:42 05/14/18 04:42 05/14/18 04:42 05/14/18 04:42 05/14/18 04:42 Temperature -Last 24 Hours Temperature 97.8 F Temperature 99.1 F Temperature 99.8 F Temperature 98.8 F - Labs CBC & Chem 7: 05/14/18 05:20 05/14/18 05:20 Labs: Abnormal lab results 05/13/18 05/13/18 05/13/18 Range/Units 08:21 10:40 12:03 WBC 14.4 H (4.5-11.0) K/mm3 RBC 3.20 L (3.65-5.03) M/mm3 Hgb 8.5 L (10.1-14.3) gm/dl Hct 25.6 L (30.3-42.9) % MCH 27 L (28-32) pg Plt Count 512 H (140-440) K/mm3 [place] # 1.1 H (0.0-0.8) K/mm3 Seg Neutrophils % 74.4 H (40.0-70.0) % Seg Neutrophils # 10.7 H (1.8-7.7) K/mm3 Sodium (137-145) mmol/L BUN (7-17) mg/dL Creatinine (0.7-1.2) mg/dL Glucose (65-100) mg/dL POC Glucose 178 H 193 H (70-105) 05/13/18 05/13/18 05/14/18 Range/Units 16:14 21:51 05:20 WBC 12.8 H (4.5-11.0) K/mm3 RBC 3.41 L (3.65-5.03) M/mm3 Hgb 8.9 L (10.1-14.3) gm/dl Hct 27.0 L (30.3-42.9) % MCH 26 L (28-32) pg Plt Count 510 H (140-440) K/mm3 [place] # 0.9 H (0.0-0.8) K/mm3 Seg Neutrophils % 71.4 H (40.0-70.0) % Seg Neutrophils # 9.1 H (1.8-7.7) K/mm3 Sodium (137-145) mmol/L BUN (7-17) mg/dL Creatinine (0.7-1.2) mg/dL Glucose (65-100) mg/dL POC Glucose 171 H 129 H (70-105) 05/14/18 05/14/18 Range/Units 05:20 07:46 WBC (4.5-11.0) K/mm3 RBC (3.65-5.03) M/mm3 Hgb (10.1-14.3) gm/dl Hct (30.3-42.9) % MCH (28-32) pg Plt Count (140-440) K/mm3 [place] # (0.0-0.8) K/mm3 Seg Neutrophils % (40.0-70.0) % Seg Neutrophils # (1.8-7.7) K/mm3 Sodium 135 L (137-145) mmol/L BUN 4 L (7-17) mg/dL Creatinine 0.5 L (0.7-1.2) mg/dL Glucose 147 H (65-100) mg/dL POC Glucose 167 H (70-105)
[2018-05-14] MEDS: LEVAQUIN 750MG/150ML 750 MG/150 ML BAG IV SCH (09:47)
[2018-05-14] MEDS: DAKIN'S HALF STRENGTH TP SCH ×2 (10:00→23:14)
[2018-05-14] MEDS: NACL 0.9% 1000 ML 1,000 ML IV SCH (10:25)
[2018-05-14] MEDS ORDERED: BACITRACIN IR ONE ×2 (10:26→11:33)
[2018-05-14] MEDS ORDERED: NACL P/F VIAL (10 ML) 10 ML ONE (10:31)
[2018-05-14] MEDS ORDERED: DILAUDID ONE (10:47)
[2018-05-14] MEDS ORDERED: DIPRIVAN 10 MG/ML IV ONE (10:48)
[2018-05-14] MEDS ORDERED: VERSED ONE (10:48)
[2018-05-14] MEDS ORDERED: XYLOCAINE MPF 2% ONE (10:48)
[2018-05-14] MEDS ORDERED: DILAUDID IV PRN (11:32)
--- NOTE | 2018-05-14 11:32 | Anesthesia Day of Surgery ---
Anesthesia Day of Surgery - Day of Surgery Patient Examined: Yes Patient H&P Reviewed: Yes Patient is NPO: Yes
--- NOTE | 2018-05-14 12:19 | Post Operative Note ---
Date of procedure: 05/14/18 Pre-op diagnosis: infected right diabetic foot wound Post-op diagnosis: same Findings: liquifactive necrosis of subcutaneous tissue, muscle and fascia of plantar aspect of foot measurements post debridement: 6.5x7x1.5cm , tunnelling to inferior lateral asp ect of the wound (7 oclock) to 3.5 cm Procedure: excisional debridement of subcutaneous tissue, muscle, and fascia of right foot Anesthesia: MAC Surgeon: ROGELIO SNOWDEN Estimated blood loss: minimal Pathology: none Condition: stable Disposition: PACU
--- NOTE | 2018-05-14 13:40 | Progress Note ---
Assessment and Plan Assessment and plan: Patient is a 58 yo Black woman with a history of NIDDM with neuropathy on gabapentin, hypertension and dyslipidemia who presents to [facility] ED with right foot pains on the ball of her foot that started about a week ago. Now, she is having severe pains, difficulty ambulating and foul ordor with drainage. She just moved to [place] about 1 week ago from [place] -MSSA Sepsis from Right foot infection with abscess s/p excisional debridement 05/06/18: following blood and wound culture, MRI foot ruled out osteomyelitis, further debridement and exploration -Right foot cellulitis: treat with abx, ID is following -Poorly controlled DM, a1c 11.7: SSI, ada diet, I adjust insulin -Diabetic neuropathy: continue gabapentin Dispo: continue inpatient care, Patient added to OR schedule for today for further debridement. History Interval history: Patient was seen and examined. Follow-up on current diagnosis right plantar foot infection. Overnight uneventful. Patient denies any chest pain, shortness breath, nausea/vomiting or severe headaches. Imaging, nursing note, chart, labs and old chart reviewed. Discussed with patient. Hospitalist Physical - Physical exam Narrative exam: Gen: WDWN, NAD, Awake, Alert, Orientated HEENT: NCAT, EOMI, PERRL, OP Clear Neck: supple, no adenopathy, no thyromegaly, no JVD CVS/Heart: RRR, normal S1S2, pulses present bilaterally Chest/Lungs: CTA B, Symmetrical chest expansion, good air entry bilaterally GI/Abdomen: soft, NTND, good bowel sounds, no guarding or rebound /Bladder: no suprapubic tenderness, no CVA or paraspinal tenderness Extermity/Skin: right foot dsg c/d/i MSK: FROM x 4 Neuro: CN 2-12 grossly intact, no new focal deficits Psych: calm - Constitutional Vitals: Temp Pulse Resp BP Pulse Ox 97.7 F 75 16 134/75 94 05/14/18 12:30 05/14/18 12:45 05/14/18 12:45 05/14/18 12:45 05/14/18 12:45 Results - Labs CBC & Chem 7: 05/14/18 05:20 05/14/18 05:20 Labs: Laboratory Last Values WBC 12.8 K/mm3 (4.5-11.0) H 05/14/18 05:20 RBC 3.41 M/mm3 (3.65-5.03) L 05/14/18 05:20 Hgb 8.9 gm/dl (10.1-14.3) L 05/14/18 05:20 POC Hgb 9.2 (12-17) L 05/06/18 12:43 Hct 27.0 % (30.3-42.9) L 05/14/18 05:20 POC Hct 27 (38-51) L 05/06/18 12:43 MCV 79 fl (79-97) 05/14/18 05:20 MCH 26 pg (28-32) L 05/14/18 05:20 MCHC 33 % (30-34) 05/14/18 05:20 RDW 14.1 % (13.2-15.2) 05/14/18 05:20 Plt Count 510 K/mm3 (140-440) H 05/14/18 05:20 Lymph % (Auto) 20.5 % (13.4-35.0) 05/14/18 05:20 [place] % (Auto) 6.7 % (0.0-7.3) 05/14/18 05:20 Eos % (Auto) 0.9 % (0.0-4.3) 05/14/18 05:20 Baso % (Auto) 0.5 % (0.0-1.8) 05/14/18 05:20 Lymph # 2.6 K/mm3 (1.2-5.4) 05/14/18 05:20 [place] # 0.9 K/mm3 (0.0-0.8) H 05/14/18 05:20 Eos # 0.1 K/mm3 (0.0-0.4) 05/14/18 05:20 Baso # 0.1 K/mm3 (0.0-0.1) 05/14/18 05:20 Add Manual Diff Complete 05/08/18 00:30 Total Counted 100 05/08/18 00:30 Seg Neutrophils % 71.4 % (40.0-70.0) H 05/14/18 05:20 Seg Neuts % (Manual) 75.0 % (40.0-70.0) H 05/08/18 00:30 Band Neutrophils % 5.0 % 05/08/18 00:30 Lymphocytes % (Manual) 16.0 % (13.4-35.0) 05/08/18 00:30 Reactive Lymphs % (Man) 0 % 05/08/18 00:30 Monocytes % (Manual) 3.0 % (0.0-7.3) 05/08/18 00:30 Eosinophils % (Manual) 0 % (0.0-4.3) 05/08/18 00:30 Basophils % (Manual) 0 % (0.0-1.8) 05/08/18 00:30 Metamyelocytes % 0 % 05/08/18 00:30 Myelocytes % 1.0 % 05/08/18 00:30 Promyelocytes % 0 % 05/08/18 00:30 Blast Cells % 0 % 05/08/18 00:30 Nucleated RBC % Not Reportable 05/08/18 00:30 Seg Neutrophils # 9.1 K/mm3 (1.8-7.7) H 05/14/18 05:20 Seg Neutrophils # Man 11.9 K/mm3 (1.8-7.7) H 05/08/18 00:30 Band Neutrophils # 0.8 K/mm3 05/08/18 00:30 Lymphocytes # (Manual) 2.5 K/mm3 (1.2-5.4) 05/08/18 00:30 Abs React Lymphs (Man) 0.0 K/mm3 05/08/18 00:30 Monocytes # (Manual) 0.5 K/mm3 (0.0-0.8) 05/08/18 00:30 Eosinophils # (Manual) 0.0 K/mm3 (0.0-0.4) 05/08/18 00:30 Basophils # (Manual) 0.0 K/mm3 (0.0-0.1) 05/08/18 00:30 Metamyelocytes # 0.0 K/mm3 05/08/18 00:30 Myelocytes # 0.2 K/mm3 05/08/18 00:30 Promyelocytes # 0.0 K/mm3 05/08/18 00:30 Blast Cells # 0.0 K/mm3 05/08/18 00:30 WBC Morphology Not Reportable 05/08/18 00:30 Hypersegmented Neuts Not Reportable 05/08/18 00:30 Hyposegmented Neuts Not Reportable 05/08/18 00:30 Hypogranular Neuts Not Reportable 05/08/18 00:30 Smudge Cells Not Reportable 05/08/18 00:30 Toxic Granulation Not Reportable 05/08/18 00:30 Toxic Vacuolation Not Reportable 05/08/18 00:30 Dohle Bodies Not Reportable 05/08/18 00:30 Pelger-Huet Anomaly Not Reportable 05/08/18 00:30 Jb Rods Not Reportable 05/08/18 00:30 Platelet Estimate Appears normal 05/08/18 00:30 Clumped Platelets Not Reportable 05/08/18 00:30 Plt Clumps, EDTA Not Reportable 05/08/18 00:30 Large Platelets Not Reportable 05/08/18 00:30 Giant Platelets Not Reportable 05/08/18 00:30 Platelet Satelliting Not Reportable 05/08/18 00:30 Plt Morphology Comment Not Reportable 05/08/18 00:30 RBC Morphology Not Reportable 05/08/18 00:30 Dimorphic RBCs Yes 05/08/18 00:30 Polychromasia Not Reportable 05/08/18 00:30 Hypochromasia 1+ 05/08/18 00:30 Poikilocytosis 1+ 05/08/18 00:30 Anisocytosis 1+ 05/08/18 00:30 Microcytosis Few 05/08/18 00:30 Macrocytosis Not Reportable 05/08/18 00:30 Spherocytes Not Reportable 05/08/18 00:30 Pappenheimer Bodies Not Reportable 05/08/18 00:30 Sickle Cells Not Reportable 05/08/18 00:30 Target Cells Not Reportable 05/08/18 00:30 Tear Drop Cells Not Reportable 05/08/18 00:30 Ovalocytes 1+ 05/08/18 00:30 Stomatocytes 1+ 05/08/18 00:30 Helmet Cells Rare 05/08/18 00:30 [place] Bodies Not Reportable 05/08/18 00:30 [place] Rings Not Reportable 05/08/18 00:30 [place] Cells Not Reportable 05/08/18 00:30 Bite Cells Not Reportable 05/08/18 00:30 Crenated Cell Not Reportable 05/08/18 00:30 Elliptocytes Not Reportable 05/08/18 00:30 Acanthocytes (Spur) Not Reportable 05/08/18 00:30 Rouleaux Not Reportable 05/08/18 00:30 Hemoglobin C Crystals Not Reportable 05/08/18 00:30 Schistocytes Not Reportable 05/08/18 00:30 Malaria parasites Not Reportable 05/08/18 00:30 Kevin Bodies Not Reportable 05/08/18 00:30 Hem Pathologist Commnt No 05/08/18 00:30 VBG pH 7.360 (7.320-7.420) 04/30/18 09:44 POC Sodium 136 mmol/L (138-146) L 05/06/18 12:43 POC Potassium 3.1 (3.5-4.9) L 05/06/18 12:43 POC Chloride 96 (98-109) L 05/06/18 12:43 Sodium 135 mmol/L (137-145) L 05/14/18 05:20 Potassium 3.9 mmol/L (3.6-5.0) 05/14/18 05:20 Chloride 98.0 mmol/L (98-107) 05/14/18 05:20 Carbon Dioxide 26 mmol/L (22-30) 05/14/18 05:20 Anion Gap 15 mmol/L 05/14/18 05:20 POC BUN 4 mg/dl (8-26) L 05/06/18 12:43 BUN 4 mg/dL (7-17) L 05/14/18 05:20 Creatinine 0.5 mg/dL (0.7-1.2) L 05/14/18 05:20 Estimated GFR > 60 ml/min 05/14/18 05:20 BUN/Creatinine Ratio 8 % 05/14/18 05:20 Glucose 147 mg/dL (65-100) H 05/14/18 05:20 POC Glucose 168 (70-105) H 05/14/18 12:23 Hemoglobin A1c 11.7 % (4-6) H 05/01/18 00:35 Lactic Acid 1.10 mmol/L (0.7-2.0) 04/30/18 13:00 Calcium 8.7 mg/dL (8.4-10.2) 05/14/18 05:20 Total Bilirubin 0.30 mg/dL (0.1-1.2) 05/02/18 05:07 AST 23 units/L (5-40) 05/02/18 05:07 ALT 29 units/L (7-56) 05/02/18 05:07 Alkaline Phosphatase 165 units/L (35-129) H 05/02/18 05:07 Total Protein 6.6 g/dL (6.3-8.2) D 05/02/18 05:07 Albumin 2.4 g/dL (3.9-5) L 05/02/18 05:07 Albumin/Globulin Ratio 0.6 % 05/02/18 05:07 Nutrition/Malnutrition Assess - Dietary Evaluation Nutrition/Malnutrition Findings: Nutrition Notes Start: 05/07/18 13:22 Freq: Status: Active Protocol: Document 05/13/18 16:00 RM (Rec: 05/13/18 16:04 RM [id number]) Nutrition Notes Initial or Follow up Reassessment Current Diagnosis Diabetes Hypertension Hyperlipidemia Other Pertinent Diagnosis Right foot ulcer Current Diet Consistent CHO Labs/Tests A1c 11.7 Pertinent Medications Reviewed Height 5 ft 7 in Weight 90 kg [place] Body Weight (kg) 61.36 BMI 31.1 Subjective/Other Information Pt asleep at time of visit. Pt tech unsure how much pt has been eating of meals but stated that pt drinks the Glucerna. PO intake of 100% X 3 days in record. Percent of energy/protein needs met: 100%/100% Burn Absent Trauma Absent #1 Nutrition Diagnosis Increased nutrient needs ( specify in comment below) Diagnosis Progress(for reassessment Continues documentation) Is patient on ventilator? No Is Patient Ambulatory and/or Out of Bed Yes REE-([facility]-ambulatory/OOB) [ 195.919 [id number]] Kcal/Kg value to use for calculation 18 Approximate Energy Requirements Using 1620 kcal/Kg Calculation Used for Recommendations Kcal/kg Additional Notes Protein Needs: 95g-137g (1.25- 1.5g/kg AdjBW) AdjBW: 76kg Fluid needs: 1 mL/kcal Nutrition Intervention Change Diet Order: Continue current Add Supplement/Snack (indicate name/kcal Glucerna 1 daily /protein ) Provides kCal: 220 Provides Protein (gm) 10 Goal #1 Meet at least 75% of energy and protein needs via PO and ONS intakes Goal #2 Wound healing Follow-Up By: 05/15/18 Additional Comments Follow for PO intakes and DM diet education
--- NOTE | 2018-05-14 13:58 | Post Anesthesia Evaluation ---
- Post Anesthesia Evaluation Patient Participated: Yes Airway Patent: Yes Stable Respiratory Function: Yes Nausea/Vomiting: No Temp > 96.8F: Yes Pain Manageable: Yes Adequeate Hydration: Yes Anesthesia Complications: No
--- NOTE | 2018-05-14 15:05 | Operative Report ---
PREOPERATIVE DIAGNOSIS: Infected right diabetic foot wound. POSTOPERATIVE DIAGNOSIS: Infected right diabetic foot wound. FINDINGS: Liquefactive necrosis of subcutaneous tissue, muscle, fascia, plantar aspect of the foot. Predebridement measurements are as follows: 7 cm x 7.5 cm x 3 cm. Post-debridement measurements are 7 cm x 7.5 cm x 3.2 cm with tunneling at the lateral aspect of the foot at 7 o'clock to 3.5 cm. PROCEDURE: Excisional debridement of subcutaneous tissue, muscle, fascia of right foot infected wound. Placement of negative pressure wound therapy. ANESTHESIA: MAC. SURGEON: Rachel Crockett DO ESTIMATED BLOOD LOSS: Minimal. PATHOLOGY: None. CONDITION: Stable. DISPOSITION: To PACU. HISTORY OF PRESENT ILLNESS AND INDICATIONS: The patient is a 58-year-old poorly controlled diabetic, who presented to the hospital with right foot pain. She was found to have an infection of the right foot, underwent multiple debridements, last of which was performed in the operating room on 05/06/2018. The patient was doing well postoperatively and wound VAC was placed; however, she was noted to start having low grade temperatures in the last 24 hours. Upon inspection of the foot there was purulent drainage from the inferior aspect of the foot and therefore it was decided to take the patient to the operating room for further exploration and debridement. All risks, benefits, and alternatives of surgery were discussed with the patient and consent obtained. All questions were answered. PROCEDURE IN DETAIL: The patient was identified in preop area, taken back to the operating room, placed on the operating table in supine position. After anesthesia was induced, the right foot was prepped and draped in the usual sterile fashion. Timeout was performed. The patient is insensate at the bottom of the foot and around the wound. The necrotic tissue consisting of subcutnaeous tissue and muscle and thick adherent slough overlying the muscle was debrided sharply using forceps and scissors. The debridement was carried down until there was healthy bleeding tissue encountered. This was done circumferentially and along the entire wound base. At the inferior aspect of the wound, there was purulent drainage expressed. Therefore, this area was thoroughly explored and a pocket of liquefactive necrosis of the subcutaneous tissue was encountered at the 7 o'clock position. This tissue was sharply debrided using forceps and scissors until all of the necrotic tissue was excised. This area tunneled to 3.5 cm. The wound was then irrigated with pulse lavage irrigation instilled with bacitracin solution. The wound was inspected for hemostasis, which was achieved using a combination of electrocautery and pressure. All surfaces of the wound did have punctate bleeding and the entire wound base appeared healthy. There was no further purulent drainage from the wound and no further abscess pockets were encountered. The foot was then cleansed and 1 piece of black sponge packed into the wound. DuoDERM was placed in between the toes and the wound VAC applied in the usual fashion. The wound VAC was bridged from the plantar aspect of the foot to the dorsal aspect of the foot. The wound VAC was connected to -125 mmHg suction and the foam did compress; however, a leak was indicated. Despite multiple attempts, the leak could not be identified. At end of the case, all sponge, instrument, sharp counts were correct x 2. The patient was awoken from anesthesia and taken to the PACU in stable condition. I discussed troubleshooting the wound VAC with the grain sacker, who saw the patient once she was back in her room and was able to seal the leak and get all of the foam to compress. The wound VAC was working appropriately. JOB# [id number] RHODA/WINTER ANDERSEN
--- NOTE | 2018-05-14 15:10 | Progress Note ---
Assessment and Plan Cultures: 04/30/2018 blood culture: No growth thus far 05/03/2018: blood culture: No growth thus far 04/30/2018 wound culture: MSSA, Group B Strep A/P: 58-year-old female with hypertension, diabetes, peripheral neuropathy related to diabetes, hyperlipidemia. Admitted with: 1) Sepsis: no fevers in > 24 hours, leukocytosis trending down secondary to right foot diabetic foot ulcer infected with associated cellulitis and superficial abscess: Cultures growing Group B Strep and MSSA. 2) Right Diabetic foot ulcer: MRI results show plantar forefoot skin ulcer. No evidence of osteomyelitis or soft tissue abscess on MRI. s/p Wound probed to bone during 05/06/18 debridement, will order OPAT for 4 weeks post I & D, hence treat as clinical osteomyelitis. -s/p debridement: excisional debridement of subcutaneous tissue, muscle, and fascia of right foot 05/14/18 -Arterial Doppler - No evidence of significant arterial insufficiency in the RIGHT lower extremity. 3) Diabetes mellitus type 2 uncontrolled: Recommend tight glycemic control. 4) Diabetic neuropathy: high risk for osteomyelitis. Recs: Continue IV Cefazolin higher dose 2 gm q6 hrs, D11 Agree with further debridement and exploration today, please send surgical cultures. Start Levaquin 750mg IV every 24 hours while inpatient, D3, last dose today upon discharge will do ceftriaxone 2gm IV q 24H and Flagyl 500 mg PO every 8 hours for 4 weeks until 06/03/18 Continue Flagyl 500 mg IV every 8 hours for persistent fevers, D5 order placed with case management f/u with ID clinic 06-04-18 [facility] M: [phone] O:[phone] Subjective Date of service: 05/14/18 Interval history: Patient seen and examined. s/p debridement today, c/o mild discomfort, no fevers. Objective - Exam Narrative Exam: Constitutional: Alert, cooperative. no acute distress Head, Ears, Nose: Normocephalic, atraumatic. External ears, nose normal Eyes: Conjunctivae/corneas clear. No icterus. No ptosis. Neck: Supple, no meningeal signs Oral: dentition missing teeth, no thrush Cardiovascular: S1, S2 normal. Respiratory: Good air entry, clear to auscultation bilaterally GI: Soft, non-tender; bowel sounds normal. No peritoneal signs Musculoskeletal: s/ debridement, right foot in dressing, no drainage Skin: No rash or abscess Hem/Lymphatic: No palpable cervical or supraclavicular nodes. No lymphangitis Psych: Mood ok. Affect normal Neurological: Awake, alert, oriented. peripheral neuropathy + - Constitutional Vitals: Vital Signs Temp Pulse Resp BP Pulse Ox 97.7 F 75 16 134/75 94 05/14/18 12:30 05/14/18 12:45 05/14/18 12:45 05/14/18 12:45 05/14/18 12:45 Temperature -Last 24 Hours Temperature 97.7 F Temperature 97.2 F Temperature 98.5 F Temperature 97.8 F Temperature 97.8 F Temperature 99.1 F Temperature 99.8 F - Labs CBC & Chem 7: 05/14/18 05:20 05/14/18 05:20 Labs: Abnormal lab results 05/13/18 05/13/18 05/14/18 Range/Units 16:14 21:51 05:20 WBC 12.8 H (4.5-11.0) K/mm3 RBC 3.41 L (3.65-5.03) M/mm3 Hgb 8.9 L (10.1-14.3) gm/dl Hct 27.0 L (30.3-42.9) % MCH 26 L (28-32) pg Plt Count 510 H (140-440) K/mm3 [place] # 0.9 H (0.0-0.8) K/mm3 Seg Neutrophils % 71.4 H (40.0-70.0) % Seg Neutrophils # 9.1 H (1.8-7.7) K/mm3 Sodium (137-145) mmol/L BUN (7-17) mg/dL Creatinine (0.7-1.2) mg/dL Glucose (65-100) mg/dL POC Glucose 171 H 129 H (70-105) 05/14/18 05/14/18 05/14/18 Range/Units 05:20 07:46 12:23 WBC (4.5-11.0) K/mm3 RBC (3.65-5.03) M/mm3 Hgb (10.1-14.3) gm/dl Hct (30.3-42.9) % MCH (28-32) pg Plt Count (140-440) K/mm3 [place] # (0.0-0.8) K/mm3 Seg Neutrophils % (40.0-70.0) % Seg Neutrophils # (1.8-7.7) K/mm3 Sodium 135 L (137-145) mmol/L BUN 4 L (7-17) mg/dL Creatinine 0.5 L (0.7-1.2) mg/dL Glucose 147 H (65-100) mg/dL POC Glucose 167 H 168 H (70-105)
[2018-05-14] MEDS: HCTZ PO SCH (16:31)
[2018-05-14] MEDS: ZESTRIL PO SCH (16:32)
[2018-05-14] MEDS: HALFPRIN EC PO SCH (16:34)
[2018-05-14] MEDS: PEPCID PO SCH ×2 (16:34→22:34)
[2018-05-14] MEDS: SODIUM CHLORIDE FLUSH SYRINGE 10 ML IV SCH ×2 (16:36→22:35)
[2018-05-14] MEDS: TYLENOL PO PRN (18:13)
[2018-05-14] MEDS: PRAVACHOL PO SCH (22:34)
[2018-05-14] MEDS: LOVENOX SUB-Q SCH (22:34)
[2018-05-15] MEDS: NEURONTIN PO SCH ×3 (00:10→16:22)
[2018-05-15] MEDS: ceFAZolin 2 GM in NACL 0.9% 100 ML IV SCH ×4 (01:56→21:53)
[2018-05-15] MEDS: FLAGYL 500 MG/100 ML 500 MG/100 ML BAG IV SCH ×3 (02:41→17:40)
[2018-05-15] MEDS: GLUCOPHAGE PO SCH ×2 (08:47→16:33)
[2018-05-15] MEDS: HumaLOG SUB-Q SCH ×4 (08:47→21:57)
--- NOTE | 2018-05-15 08:58 | Progress Note ---
Assessment and Plan Cultures: 04/30/2018 blood culture: No growth thus far 05/03/2018: blood culture: No growth thus far 04/30/2018 wound culture: MSSA, Group B Strep A/P: 58-year-old female with hypertension, diabetes, peripheral neuropathy related to diabetes, hyperlipidemia. Admitted with: 1) Sepsis: Continuing to spike temps, leukocytosis trending down secondary to right foot diabetic foot ulcer infected with associated cellulitis and superficial abscess: Cultures growing Group B Strep and MSSA. 2) Right Diabetic foot ulcer: MRI results show plantar forefoot skin ulcer. No evidence of osteomyelitis or soft tissue abscess on MRI. s/p Wound probed to tremaine joseph during 05/06/18 debridement, will order OPAT for 4 weeks post I & D, hence treat as clinical osteomyelitis. -s/p debridement: excisional debridement of subcutaneous tissue, muscle, a nd fascia of right foot 05/14/18 -Arterial Doppler - No evidence of significant arterial insufficiency in the RIGHT lower extremity. 3) Diabetes mellitus type 2 uncontrolled: Recommend tight glycemic control. 4) Diabetic neuropathy: high risk for osteomyelitis. Recs: Continue IV Cefazolin higher dose 2 gm q6 hrs, D12 s/p debridement, f/u surgical cultures. Discontinue Levaquin upon discharge will do ceftriaxone 2gm IV q 24H and Flagyl 500 mg PO every 8 hours for 4 weeks until 06/03/18 Continue Flagyl 500 mg IV every 8 hours for persistent fevers, D6 order placed with case management f/u with ID clinic 06-04-18 CRP o rdered ok to discharge after fever resolves for > than 25 hours [facility] M: [phone] O:[phone] Subjective Date of service: 05/15/18 Interval history: Patient seen and examined. Denied generalized pain or SOB. Continues to spike fevers. Objective - Exam Narrative Exam: Constitutional: Alert, cooperative. no acute distress Head, Ears, Nose: Normocephalic, atraumatic. External ears, nose normal Eyes: Conjunctivae/corneas clear. No icterus. No ptosis. Neck: Supple, no meningeal signs Oral: dentition missing teeth, no thrush Cardiovascular: S1, S2 normal. Respiratory: Good air entry, clear to auscultation bilaterally GI: Soft, non-tender; bowel sounds normal. No peritoneal signs Musculoskeletal: s/ debridement, right foot in dressing, no drainage Skin: No rash or abscess Hem/Lymphatic: No palpable cervical or supraclavicular nodes. No lymphangitis Psych: Mood ok. Affect normal Neurological: Awake, alert, oriented. peripheral neuropathy + - Constitutional Vitals: Vital Signs Temp Pulse Resp BP Pulse Ox 98.8 F 75 24 101/32 95 05/15/18 05:01 05/15/18 05:01 05/15/18 05:01 05/15/18 05:01 05/15/18 05:01 Temperature -Last 24 Hours Temperature 98.8 F Temperature 97.8 F Temperature 102.7 F Temperature 97.7 F Temperature 97.2 F Temperature 98.5 F Temperature 97.8 F - Labs CBC & Chem 7: 05/15/18 10:06 05/14/18 05:20 Labs: Abnormal lab results 05/14/18 05/14/18 05/14/18 Range/Units 12:23 17:06 21:08 POC Glucose 168 H 187 H 135 H (70-105) 05/15/18 Range/Units 07:37 POC Glucose 182 H (70-105)
[2018-05-15] MEDS: HCTZ PO SCH (09:30)
[2018-05-15] MEDS: HALFPRIN EC PO SCH (09:30)
[2018-05-15] MEDS: PEPCID PO SCH ×2 (09:31→21:57)
[2018-05-15] MEDS: DAKIN'S HALF STRENGTH TP SCH ×2 (09:33→21:54)
[2018-05-15] MEDS: SODIUM CHLORIDE FLUSH SYRINGE 10 ML IV SCH ×2 (09:34→21:57)
[2018-05-15] MEDS: ZESTRIL PO SCH (09:40)
--- NOTE | 2018-05-15 10:53 | Progress Note ---
Assessment and Plan 58 yo F s/p excisional debridement of subcutaneous tissue, muscle, and fascia of right foot, POD 1 s/p excisional debridement of right infected diabetic foot wound on 05/06/18 1. infected diabetic R foot ulcer 2. poorly controlled DM 3. sepsis due to #1 Plan: 1. diabetic diet 2. strict glucose control. Hb A1C is 11.7 3. continue wound vac 4. c/w abx per ID. pt set up for IV abx as outpatient 5. non wt bearing right foot 6. monitor for additional fevers. 102.7 fever yesterday is likely related to debridement. No fever since then. If patient remains afebrile for the next 24 hours, may be discharged. 7. case management consulted for home care. Pt needs to be set up for follow up in [facility] Thank you, please call with questions Subjective Date of service: 05/15/18 Narrative: Pt seen and examined. No complaints. Tm 102.7 after surgery yesterday. No fever since then. No pain. Objective Vital Signs - 12hr 05/14/18 05/15/18 05/15/18 22:55 05:01 09:40 Temperature 97.8 F 98.8 F Pulse Rate 80 75 77 Respiratory 20 24 Rate Blood Pressure 113/65 101/32 O2 Sat by Pulse 96 95 Oximetry - General physical appearance Narrative Exam: Gen: AAOx3. NAD CV: S1, S2+ resp; even and unlabored Ext: right foot dressing intact. wound vac to -125mmHg suction with good seal and no leak - Labs 05/14/18 05:20 05/14/18 05:20
[2018-05-15 11:22] LABS: Basophils # (Auto) 0.1 K/mm3 (0.0-0.1); Basophils % (Auto) 0.4 % (0.0-1.8); Eosinophils # (Auto) 0.2 K/mm3 (0.0-0.4); Eosinophils % (Auto) 1.6 % (0.0-4.3); Hematocrit 27.3 % (30.3-42.9); Hemoglobin 8.8 gm/dl (10.1-14.3); Lymphocytes # (Auto) 2.4 K/mm3 (1.2-5.4); Lymphocytes % (Auto) 21.4 % (13.4-35.0); Mean Corpuscular HGB Conc 32 % (30-34); Mean Corpuscular Volume 80 fl (79-97); Monocytes # (Auto) 0.8 K/mm3 (0.0-0.8); Monocytes % (Auto) 7.2 % (0.0-7.3); Platelet Count 520 K/mm3 (140-440); Red Blood Count 3.41 M/mm3 (3.65-5.03)
[2018-05-15] MEDS: NACL 0.9% 1000 ML 1,000 ML IV SCH (11:47)
--- NOTE | 2018-05-15 14:25 | Progress Note ---
Assessment and Plan Assessment and plan: Patient is a 58 yo Black woman with a history of NIDDM with neuropathy on gabapentin, hypertension and dyslipidemia who presents to [facility] ED with right foot pains on the ball of her foot that started about a week ago. Now, she is having severe pains, difficulty ambulating and foul ordor with drainage. She just moved to [place] about 1 week ago from [place] -MSSA Sepsis from Right foot infection with abscess s/p excisional debridement 05/06/18 and then again on 05/16/18: following blood and wound culture, MRI foot ruled out osteomyelitis, further debridement and exploration -Right foot cellulitis: treat with abx, ID is following -Poorly controlled DM, a1c 11.7: SSI, ada diet, I adjust insulin -Diabetic neuropathy: continue gabapentin Dispo: continue inpatient care, d/c tomorrow if patient remains afebrile per History Interval history: Patient was seen and examined. Follow-up on current diagnosis right plantar foot infection. Overnight uneventful. Patient denies any chest pain, shortness breath, nausea/vomiting or severe headaches. Imaging, nursing note, chart, labs and old chart reviewed. Discussed with patient. Hospitalist Physical - Physical exam Narrative exam: Gen: WDWN, NAD, Awake, Alert, Orientated HEENT: NCAT, EOMI, PERRL, OP Clear Neck: supple, no adenopathy, no thyromegaly, no JVD CVS/Heart: RRR, normal S1S2, pulses present bilaterally Chest/Lungs: CTA B, Symmetrical chest expansion, good air entry bilaterally GI/Abdomen: soft, NTND, good bowel sounds, no guarding or rebound /Bladder: no suprapubic tenderness, no CVA or paraspinal tenderness Extermity/Skin: right foot dsg c/d/i MSK: FROM x 4 Neuro: CN 2-12 grossly intact, no new focal deficits Psych: calm - Constitutional Vitals: Temp Pulse Resp BP Pulse Ox 98.8 F 77 24 101/32 95 05/15/18 05:01 05/15/18 09:40 05/15/18 05:01 05/15/18 05:01 05/15/18 05:01 Results - Labs CBC & Chem 7: 05/15/18 10:06 05/14/18 05:20 Labs: Laboratory Last Values WBC 11.4 K/mm3 (4.5-11.0) H 05/15/18 10:06 RBC 3.41 M/mm3 (3.65-5.03) L 05/15/18 10:06 Hgb 8.8 gm/dl (10.1-14.3) L 05/15/18 10:06 POC Hgb 9.2 (12-17) L 05/06/18 12:43 Hct 27.3 % (30.3-42.9) L 05/15/18 10:06 POC Hct 27 (38-51) L 05/06/18 12:43 MCV 80 fl (79-97) 05/15/18 10:06 MCH 26 pg (28-32) L 05/15/18 10:06 MCHC 32 % (30-34) 05/15/18 10:06 RDW 14.0 % (13.2-15.2) 05/15/18 10:06 Plt Count 520 K/mm3 (140-440) H 05/15/18 10:06 Lymph % (Auto) 21.4 % (13.4-35.0) 05/15/18 10:06 [place] % (Auto) 7.2 % (0.0-7.3) 05/15/18 10:06 Eos % (Auto) 1.6 % (0.0-4.3) 05/15/18 10:06 Baso % (Auto) 0.4 % (0.0-1.8) 05/15/18 10:06 Lymph # 2.4 K/mm3 (1.2-5.4) 05/15/18 10:06 [place] # 0.8 K/mm3 (0.0-0.8) 05/15/18 10:06 Eos # 0.2 K/mm3 (0.0-0.4) 05/15/18 10:06 Baso # 0.1 K/mm3 (0.0-0.1) 05/15/18 10:06 Add Manual Diff Complete 05/08/18 00:30 Total Counted 100 05/08/18 00:30 Seg Neutrophils % 69.4 % (40.0-70.0) 05/15/18 10:06 Seg Neuts % (Manual) 75.0 % (40.0-70.0) H 05/08/18 00:30 Band Neutrophils % 5.0 % 05/08/18 00:30 Lymphocytes % (Manual) 16.0 % (13.4-35.0) 05/08/18 00:30 Reactive Lymphs % (Man) 0 % 05/08/18 00:30 Monocytes % (Manual) 3.0 % (0.0-7.3) 05/08/18 00:30 Eosinophils % (Manual) 0 % (0.0-4.3) 05/08/18 00:30 Basophils % (Manual) 0 % (0.0-1.8) 05/08/18 00:30 Metamyelocytes % 0 % 05/08/18 00:30 Myelocytes % 1.0 % 05/08/18 00:30 Promyelocytes % 0 % 05/08/18 00:30 Blast Cells % 0 % 05/08/18 00:30 Nucleated RBC % Not Reportable 05/08/18 00:30 Seg Neutrophils # 7.9 K/mm3 (1.8-7.7) H 05/15/18 10:06 Seg Neutrophils # Man 11.9 K/mm3 (1.8-7.7) H 05/08/18 00:30 Band Neutrophils # 0.8 K/mm3 05/08/18 00:30 Lymphocytes # (Manual) 2.5 K/mm3 (1.2-5.4) 05/08/18 00:30 Abs React Lymphs (Man) 0.0 K/mm3 05/08/18 00:30 Monocytes # (Manual) 0.5 K/mm3 (0.0-0.8) 05/08/18 00:30 Eosinophils # (Manual) 0.0 K/mm3 (0.0-0.4) 05/08/18 00:30 Basophils # (Manual) 0.0 K/mm3 (0.0-0.1) 05/08/18 00:30 Metamyelocytes # 0.0 K/mm3 05/08/18 00:30 Myelocytes # 0.2 K/mm3 05/08/18 00:30 Promyelocytes # 0.0 K/mm3 05/08/18 00:30 Blast Cells # 0.0 K/mm3 05/08/18 00:30 WBC Morphology Not Reportable 05/08/18 00:30 Hypersegmented Neuts Not Reportable 05/08/18 00:30 Hyposegmented Neuts Not Reportable 05/08/18 00:30 Hypogranular Neuts Not Reportable 05/08/18 00:30 Smudge Cells Not Reportable 05/08/18 00:30 Toxic Granulation Not Reportable 05/08/18 00:30 Toxic Vacuolation Not Reportable 05/08/18 00:30 Dohle Bodies Not Reportable 05/08/18 00:30 Pelger-Huet Anomaly Not Reportable 05/08/18 00:30 Jb Rods Not Reportable 05/08/18 00:30 Platelet Estimate Appears normal 05/08/18 00:30 Clumped Platelets Not Reportable 05/08/18 00:30 Plt Clumps, EDTA Not Reportable 05/08/18 00:30 Large Platelets Not Reportable 05/08/18 00:30 Giant Platelets Not Reportable 05/08/18 00:30 Platelet Satelliting Not Reportable 05/08/18 00:30 Plt Morphology Comment Not Reportable 05/08/18 00:30 RBC Morphology Not Reportable 05/08/18 00:30 Dimorphic RBCs Yes 05/08/18 00:30 Polychromasia Not Reportable 05/08/18 00:30 Hypochromasia 1+ 05/08/18 00:30 Poikilocytosis 1+ 05/08/18 00:30 Anisocytosis 1+ 05/08/18 00:30 Microcytosis Few 05/08/18 00:30 Macrocytosis Not Reportable 05/08/18 00:30 Spherocytes Not Reportable 05/08/18 00:30 Pappenheimer Bodies Not Reportable 05/08/18 00:30 Sickle Cells Not Reportable 05/08/18 00:30 Target Cells Not Reportable 05/08/18 00:30 Tear Drop Cells Not Reportable 05/08/18 00:30 Ovalocytes 1+ 05/08/18 00:30 Stomatocytes 1+ 05/08/18 00:30 Helmet Cells Rare 05/08/18 00:30 [place] Bodies Not Reportable 05/08/18 00:30 Sparks Rings Not Reportable 05/08/18 00:30 Rk Cells Not Reportable 05/08/18 00:30 Bite Cells Not Reportable 05/08/18 00:30 Crenated Cell Not Reportable 05/08/18 00:30 Elliptocytes Not Reportable 05/08/18 00:30 Acanthocytes (Spur) Not Reportable 05/08/18 00:30 Rouleaux Not Reportable 05/08/18 00:30 Hemoglobin C Crystals Not Reportable 05/08/18 00:30 Schistocytes Not Reportable 05/08/18 00:30 Malaria parasites Not Reportable 05/08/18 00:30 Kevin Bodies Not Reportable 05/08/18 00:30 Hem Pathologist Commnt No 05/08/18 00:30 VBG pH 7.360 (7.320-7.420) 04/30/18 09:44 POC Sodium 136 mmol/L (138-146) L 05/06/18 12:43 POC Potassium 3.1 (3.5-4.9) L 05/06/18 12:43 POC Chloride 96 (98-109) L 05/06/18 12:43 Sodium 135 mmol/L (137-145) L 05/14/18 05:20 Potassium 3.9 mmol/L (3.6-5.0) 05/14/18 05:20 Chloride 98.0 mmol/L (98-107) 05/14/18 05:20 Carbon Dioxide 26 mmol/L (22-30) 05/14/18 05:20 Anion Gap 15 mmol/L 05/14/18 05:20 POC BUN 4 mg/dl (8-26) L 05/06/18 12:43 BUN 4 mg/dL (7-17) L 05/14/18 05:20 Creatinine 0.5 mg/dL (0.7-1.2) L 05/14/18 05:20 Estimated GFR > 60 ml/min 05/14/18 05:20 BUN/Creatinine Ratio 8 % 05/14/18 05:20 Glucose 147 mg/dL (65-100) H 05/14/18 05:20 POC Glucose 127 (70-105) H 05/15/18 12:07 Hemoglobin A1c 11.7 % (4-6) H 05/01/18 00:35 Lactic Acid 1.10 mmol/L (0.7-2.0) 04/30/18 13:00 Calcium 8.7 mg/dL (8.4-10.2) 05/14/18 05:20 Total Bilirubin 0.30 mg/dL (0.1-1.2) 05/02/18 05:07 AST 23 units/L (5-40) 05/02/18 05:07 ALT 29 units/L (7-56) 05/02/18 05:07 Alkaline Phosphatase 165 units/L (35-129) H 05/02/18 05:07 Total Protein 6.6 g/dL (6.3-8.2) D 05/02/18 05:07 Albumin 2.4 g/dL (3.9-5) L 05/02/18 05:07 Albumin/Globulin Ratio 0.6 % 05/02/18 05:07 Nutrition/Malnutrition Assess - Dietary Evaluation Nutrition/Malnutrition Findings: Nutrition Notes Start: 05/07/18 13:22 Freq: Status: Active Protocol: Document 05/15/18 14:09 RM (Rec: 05/15/18 14:19 RM [id number]) Nutrition Notes Initial or Follow up Reassessment Current Diagnosis Diabetes Hypertension Hyperlipidemia Other Pertinent Diagnosis Right foot ulcer Current Diet Consistent CHO Labs/Tests A1c 11.7 Pertinent Medications Hydrochlorothiazide Height 5 ft 7 in Weight 90 kg [place] Body Weight (kg) 61.36 BMI 31.1 Subjective/Other Information Pt asleep at time of visit. Recorded PO intake 63% X 2 meals. Percent of energy/protein needs met: 81%/57% Burn Absent Trauma Absent #1 Nutrition Diagnosis Increased nutrient needs ( specify in comment below) Diagnosis Progress(for reassessment Continues documentation) Is patient on ventilator? No Is Patient Ambulatory and/or Out of Bed Yes REE-([facility]-ambulatory/OOB) [ 1959.919 NUTR.[id number]] Kcal/Kg value to use for calculation 18 Approximate Energy Requirements Using 1620 kcal/Kg Calculation Used for Recommendations Kcal/kg Additional Notes Protein Needs: 95g-137g (1.25- 1.5g/kg AdjBW) AdjBW: 76kg Fluid needs: 1 mL/kcal Nutrition Intervention Change Diet Order: Add cardiac Add Supplement/Snack (indicate name/kcal Glucerna 1 daily /protein ) Provides kCal: 220 Provides Protein (gm) 10 Goal #1 Meet at least 75% of energy and protein needs via PO and ONS intakes Goal #2 Wound healing Follow-Up By: 05/17/18 Additional Comments Follow for PO intakes, ONS intakes, DM diet education
[2018-05-15] MEDS: LOVENOX SUB-Q SCH (21:52)
[2018-05-15] MEDS: PRAVACHOL PO SCH (21:55)
[2018-05-16] MEDS: NEURONTIN PO SCH ×3 (00:19→17:15)
[2018-05-16] MEDS: FLAGYL 500 MG/100 ML 500 MG/100 ML BAG IV SCH ×3 (02:53→19:05)
[2018-05-16] MEDS: ceFAZolin 2 GM in NACL 0.9% 100 ML IV SCH ×3 (02:53→13:09)
[2018-05-16] MEDS: NACL 0.9% 1000 ML 1,000 ML IV SCH (02:58)
[2018-05-16] MEDS: HCTZ PO SCH (09:09)
[2018-05-16] MEDS: ZESTRIL PO SCH (09:09)
[2018-05-16] MEDS: GLUCOPHAGE PO SCH ×2 (09:09→17:08)
[2018-05-16] MEDS: PEPCID PO SCH (09:09)
[2018-05-16] MEDS: HALFPRIN EC PO SCH (09:10)
[2018-05-16] MEDS: DAKIN'S HALF STRENGTH TP SCH (09:10)
[2018-05-16] MEDS: HumaLOG SUB-Q SCH ×3 (09:10→17:15)
[2018-05-16] MEDS: SODIUM CHLORIDE FLUSH SYRINGE 10 ML IV SCH (09:11)
--- NOTE | 2018-05-16 09:46 | Progress Note ---
Assessment and Plan Cultures: 04/30/2018 blood culture: No growth thus far 05/03/2018: blood culture: No growth thus far 04/30/2018 wound culture: MSSA, Group B Strep A/P: 58-year-old female with hypertension, diabetes, peripheral neuropathy related to diabetes, hyperlipidemia. Admitted with: 1) Sepsis: No fever > 24 hours, leukocytosis trending down secondary to right foot diabetic foot ulcer infected with associated cellulitis and superficial abscess: Cultures growing Group B Strep and MSSA. 2) Right Diabetic foot ulcer: MRI results show plantar forefoot skin ulcer. No evidence of osteomyelitis or soft tissue abscess on MRI. s/p Wound probed to bone during 05/06/18 debridement, will order OPAT for 4 weeks post I & D, hence treat as clinical osteomyelitis. -s/p debridement: excisional debridement of subcutaneous tissue, muscle, and fascia of right foot 05/14/18 -Arterial Doppler - No evidence of significant arterial insufficiency in the RIGHT lower extremity -CRP 7.7 3) Diabetes mellitus type 2 uncontrolled: Recommend tight glycemic control. 4) Diabetic neuropathy: high risk for osteomyelitis. Recs: Discontinue cefazolin Give 1 gm of ceftriaxone IV stat prior to discharge upon discharge will do ceftriaxone 2gm IV q 24H and Flagyl 500 mg PO every 8 hours for 4 weeks until 06/03/18 order placed with case management f/u with ID clinic 06-04-18 Can be discharged from ID standpoint, no fever >24 hours [facility] M: [phone] O:[phone] Subjective Date of service: 05/16/18 Interval history: Patient seen and examined. Denied generalized pain or SOB. no fevers. Discharge OPAT plan discussed, verbalized understanding. Objective - Exam Narrative Exam: Constitutional: Alert, cooperative. no acute distress Head, Ears, Nose: Normocephalic, atraumatic. External ears, nose normal Eyes: Conjunctivae/corneas clear. No icterus. No ptosis. Neck: Supple, no meningeal signs Oral: dentition missing teeth, no thrush Cardiovascular: S1, S2 normal. Respiratory: Good air entry, clear to auscultation bilaterally GI: Soft, non-tender; bowel sounds normal. No peritoneal signs Musculoskeletal: s/ debridement, right foot in dressing, no drainage Skin: No rash or abscess Hem/Lymphatic: No palpable cervical or supraclavicular nodes. No lymphangitis Psych: Mood ok. Affect normal Neurological: Awake, alert, oriented. peripheral neuropathy + - Constitutional Vitals: Vital Signs Temp Pulse Resp BP Pulse Ox 99.0 F 86 18 124/67 96 05/16/18 05:15 05/16/18 09:09 05/16/18 05:15 05/16/18 09:09 05/16/18 05:15 Temperature -Last 24 Hours Temperature 99.0 F Temperature 98.6 F Temperature 98.0 F Temperature 98.4 F - Labs CBC & Chem 7: 05/15/18 10:06 05/14/18 05:20 Labs: Abnormal lab results 05/15/18 05/15/18 05/15/18 Range/Units 10:06 12:07 16:27 WBC 11.4 H (4.5-11.0) K/mm3 RBC 3.41 L (3.65-5.03) M/mm3 Hgb 8.8 L (10.1-14.3) gm/dl Hct 27.3 L (30.3-42.9) % MCH 26 L (28-32) pg Plt Count 520 H (140-440) K/mm3 Seg Neutrophils # 7.9 H (1.8-7.7) K/mm3 POC Glucose 127 H 173 H (70-105) C-Reactive Protein (0.00-1.30) mg/dL 05/15/18 05/16/18 05/16/18 Range/Units 21:34 05:26 08:53 WBC (4.5-11.0) K/mm3 RBC (3.65-5.03) M/mm3 Hgb (10.1-14.3) gm/dl Hct (30.3-42.9) % MCH (28-32) pg Plt Count (140-440) K/mm3 Seg Neutrophils # (1.8-7.7) K/mm3 POC Glucose 138 H 120 H (70-105) C-Reactive Protein 7.70 H (0.00-1.30) mg/dL
--- NOTE | 2018-05-16 10:33 | Progress Note ---
Assessment and Plan 58 yo F s/p excisional debridement of subcutaneous tissue, muscle, and fascia of right foot, POD 2 s/p excisional debridement of right infected diabetic foot wound on 05/06/18 1. infected diabetic R foot ulcer 2. poorly controlled DM 3. sepsis due to #1 Plan: 1. diabetic diet 2. strict glucose control. Hb A1C is 11.7 3. continue wound vac - will be changed by steam table attendant today 4. c/w abx per ID. pt set up for IV abx as outpatient 5. non wt bearing right foot 6. no fever x 24 hours, WBC trending down 7. Home vac to be applied today. Pt is ok for discharge from surgery standpoint. She is scheduled for follow up at [facility]ound care center on Saturday 05/20 @8am Thank you, please call with questions Subjective Date of service: 05/16/18 Objective Vital Signs - 12hr 05/15/18 05/16/18 05/16/18 23:31 05:15 09:09 Temperature 98.6 F 99.0 F Pulse Rate 79 86 86 Respiratory 18 18 Rate Blood Pressure 124/67 124/67 Blood Pressure 130/66 [Right] O2 Sat by Pulse 96 96 Oximetry - Labs 05/15/18 10:06 05/14/18 05:20
--- NOTE | 2018-05-16 11:51 | Discharge Summary ---
Providers - Providers Date of Admission: 04/30/18 13:32 Date of discharge: 05/16/18 Attending physician: SINDY RODRÍGUEZ 04/30/18 20:37 Consult to Wound/ET Nurse [CONS] Urgent Reason For Exam: wound eval 05/01/18 05:47 Consult to PICC Line RN [CONS] Urgent Reason For Exam: ultrasound guided IV Type Line:: Midline 05/01/18 10:01 Consult to Physician [CONS] Routine Comment: Consulting Provider: MARNI MUNOZ Physician Instructions: I notified Reason For Exam: sepsis 05/01/18 10:19 Consult to Physician [CONS] Urgent Comment: Consulting Provider: ROGELIO SNOWDEN Physician Instructions: PLEASE SEE FOR POSSIBLE DEBRIDEMENT Reason For Exam: EVALUATE RIGHT FOOT 05/01/18 12:23 Physical Therapy Evaluation and Treat [CONS] Routine Comment: Reason For Exam: nonweight bear right foot 05/07/18 15:22 Consult to Case Management [CONS] Urgent Services Needed at Discharge: Home Health Services Notified:: yes Additional Physician Instructions: [facility] M [phone] O [phone] F [phone] OUTPATIENT PARENTERAL ANTIBIOTIC THERAPY ORDERS Diagnoses:Right diabetic foot ulcer Antimicrobial administration: upon discharge will do Ceftriaxone 2gm IV q 24h ceftriaxone 2gm IV q 24H and Flagyl 500 mg PO every 8 hours for 4 weeks until 06/03/18. Remove PICC line after last dose unless otherwise instructed. Lines: PICC Lab monitoring: CBC, BUN, Creatinine, ALT, AST, ESR, CRP once a week preferly on Sunday morning. Please fax results to [phone] and call [phone] for critical lab results[address] Dr. Wade Jiménez Date: 05/07/18 05/07/18 15:26 PICC Line Insertion [Consult to PICC Line RN] [CONS] Urgent Reason For Exam: out patient antibiotic therapy Type Line:: PICC Primary care physician: ROSITA WYLIE Hospitalization Condition: Stable Hospital course: Patient is a 58 yo Black woman with a history of NIDDM with neuropathy on gabapentin, hypertension and dyslipidemia who presents to [facility] ED with right foot pains on the ball of her foot that started about a week ago. Now, she is having severe pains, difficulty ambulating and foul ordor with drainage. She just moved to [place] about 1 week ago from [place] Cultures: 04/30/2018 blood culture: No growth thus far 05/03/2018: blood culture: No growth thus far 04/30/2018 wound culture: MSSA, Group B Strep -MSSA Sepsis from Right foot infection with abscess s/p excisional debridement 05/06/18 and then again on 05/16/18: following blood and wound culture, MRI foot ruled out osteomyelitis, further debridement and exploration -Right foot cellulitis: treat with abx, ID is following -Poorly controlled DM, a1c 11.7: SSI, ada diet, I adjust insulin -Diabetic neuropathy: continue gabapentin Disposition: continue inpatient care, d/c tomorrow if patient remains afebrile per ID Recs: Continue IV Cefazolin higher dose 2 gm q6 hrs, D13 upon discharge will do ceftriaxone 2gm IV q 24H and Flagyl 500 mg PO every 8 hours for 4 weeks until 06/03/18 Continue Flagyl 500 mg IV every 8 hours for persistent fevers, D7 order placed with case management f/u with ID clinic 06-04-18 Can be discharged from ID standpoint, no fever >24 hours Disposition: [id number]/TX-06 HOME UNDER HOME [facility] Time spent for discharge: 35 minutes Core Measure Documentation - Palliative Care Palliative Care/ Comfort Measures: Not Applicable - Core Measures Any of the following diagnoses?: none - VTE Discharge Requirements Deep Vein Thrombosis/Pulmonary Embolism Present on Admission: No Has pt received <5 days of overlap therapy or INR<2.0: No Anticoagulant overlap therapy prescribed at discharge: No Contraindication No Overlap Therapy order at DC: Not Indicated Exam - Physical Exam Narrative exam: Gen: WDWN, NAD, Awake, Alert, Orientated HEENT: NCAT, EOMI, PERRL, OP Clear Neck: supple, no adenopathy, no thyromegaly, no JVD CVS/Heart: RRR, normal S1S2, pulses present bilaterally Chest/Lungs: CTA B, Symmetrical chest expansion, good air entry bilaterally GI/Abdomen: soft, NTND, good bowel sounds, no guarding or rebound /Bladder: no suprapubic tenderness, no CVA or paraspinal tenderness Extermity/Skin: right foot dsg c/d/i, R foot wound vac in place, no leak, serosang drainage in canister MSK: FROM x 4 Neuro: CN 2-12 grossly intact, no new focal deficits Psych: calm - Constitutional Vitals: Temp Pulse Resp BP Pulse Ox 99.0 F 86 18 124/67 96 05/16/18 05:15 05/16/18 09:09 05/16/18 05:15 05/16/18 09:09 05/16/18 05:15 Plan Activity: other (no strenous activity until cleared by PCP) Diet: diabetic Special Instructions: record daily BP diary, record blood sugar diary Follow up with: ROSITA WYLIE MD [Primary Care Provider] - 3-5 Days MARNI MUNOZ MD [Staff Physician] - 7 Days ROGELIO SNOWDEN DO [Staff Physician] - 7 Days Prescriptions: cefTRIAXone/NS 2 GM/100 ML [Rocephin/Ns 2 gm/100 ml] 2 gm IV Q24HR #1 piggyback Glipizide/Metformin HCl [glipiZIDE-Metformin 2.5-250 mg] 1 each PO BID #60 tablet metroNIDAZOLE [Flagyl] 500 mg PO Q8HR 18 Days tablet oxyCODONE /ACETAMINOPHEN [Percocet 5/325 mg] 1 tab PO Q6H PRN #15 tablet PRN Reason: Pain , Severe (7-10)
[2018-05-16] MEDS ORDERED: ROCEPHIN/NS 1 GM/50 ML 1 GM/50 ML BAG IV ONE (16:59)
[2018-05-16 17:20] VITALS: BP 118/58
== END 2018-05-16 19:45 | disposition home or self-care (01) | DRG 853 ==
LOC: ED 09:23 → 3A 13:32
PROVIDERS: ADMIT Internal Medicine; ATTEND Internal Medicine
PROC: 0JBQ0ZZ Excision of Right Foot Subcutaneous Tissue and Fascia, Open Approach (ICD-10-PCS; principal; 2018-05-06)
PROC: 0KBV0ZZ Excision of Right Foot Muscle, Open Approach (ICD-10-PCS; 2018-05-08)
PROC: 02HV33Z Insertion of Infusion Device into Superior Vena Cava, Percutaneous Approach (ICD-10-PCS; 2018-05-08)
PROC: 0KBV0ZZ Excision of Right Foot Muscle, Open Approach (ICD-10-PCS; 2018-05-14)
DX: A41.01 Sepsis due to Methicillin susceptible Staphylococcus aureus (principal); E43 Unspecified severe protein-calorie malnutrition; L03.115 Cellulitis of right lower limb; E11.65 Type 2 diabetes mellitus with hyperglycemia; E11.42 Type 2 diabetes mellitus with diabetic polyneuropathy; E66.9 Obesity, unspecified; I10 Essential (primary) hypertension; E78.5 Hyperlipidemia, unspecified; L97.519 Non-pressure chronic ulcer of other part of right foot with unspecified severity; L02.611 Cutaneous abscess of right foot; E11.621 Type 2 diabetes mellitus with foot ulcer; Z79.84 Long term (current) use of oral hypoglycemic drugs; Z79.899 Other long term (current) drug therapy; Z82.49 Family history of ischemic heart disease and other diseases of the circulatory system; Z79.82 Long term (current) use of aspirin; Z68.31 Body mass index [BMI] 31.0-31.9, adult
CPT/HCPCS: 36415; 71045; 80048; 80053; 82140; 82803; 82805; 82962; 83036; 85007; 85025; 85027; 86140; 87040; 87076; 87086; 87116; 87186; 93005; 93010; G0378; A6260; A9270-GY; A9577; J0295; J0690; J0692; J0696; J1170; J1650; J1815; J1956; J2001; J2250; J2405; J2704; J3010; J3370; J3480; J7030; J7040; J7050

== ENCOUNTER 2018-05-20 08:07 | Outpatient (CLI) | payer MEDICAID ==
[2018-05-20] MEDS ORDERED: XYLOCAINE TOPICAL 4% TP ONE (08:38)
== END 2018-05-20 08:08 | disposition home or self-care (01) ==
LOC: WOUND 08:07
PROVIDERS: ATTEND Surgery
DX: E11.621 Type 2 diabetes mellitus with foot ulcer (principal); L97.512 Non-pressure chronic ulcer of other part of right foot with fat layer exposed; E11.40 Type 2 diabetes mellitus with diabetic neuropathy, unspecified; I10 Essential (primary) hypertension; E78.5 Hyperlipidemia, unspecified; F32.9 Major depressive disorder, single episode, unspecified; Z87.891 Personal history of nicotine dependence
CPT/HCPCS: 11043; 11046; 97605; G0463; 99215

== ENCOUNTER 2018-05-21 11:44 | Outpatient (CLI) | payer BC, MEDICAID ==
[2018-05-21 12:58] LABS: Hematocrit 29.5 % (30.3-42.9); Hemoglobin 9.8 gm/dl (10.1-14.3); Mean Corpuscular HGB Conc 33 % (30-34); Mean Corpuscular Volume 80 fl (79-97); Platelet Count 567 K/mm3 (140-440); Red Cell Distribution Width 14.3 % (13.2-15.2)
[2018-05-21 13:22] LABS: Blood Urea Nitrogen 11 mg/dL (7-17)
[2018-05-21 13:23] LABS: Alanine Aminotransferase < 5 units/L (7-56); Erythrocyte Sedimentation Rate 121 mm/Hr (0-20)
== END 2018-05-21 11:45 | disposition home or self-care (01) ==
LOC: LAB 11:44
PROVIDERS: ATTEND Internal Medicine
DX: E11.621 Type 2 diabetes mellitus with foot ulcer (principal); I10 Essential (primary) hypertension; E66.9 Obesity, unspecified
CPT/HCPCS: 36415; 82565; 84450; 84460; 84520; 85027; 85652; 86140

== ENCOUNTER 2018-05-23 11:36 | Outpatient (CLI) | payer MEDICAID | END 2018-05-23 11:37 | disposition home or self-care (01) | LOC: WOUND 11:36 | CPT/HCPCS: 97605 ==

== ENCOUNTER 2018-05-27 07:50 | Outpatient (CLI) | payer MEDICAID ==
[2018-05-27] MEDS ORDERED: XYLOCAINE TOPICAL 4% TP ONE (09:00)
== END 2018-05-27 07:51 | disposition home or self-care (01) ==
LOC: WOUND 07:50
PROVIDERS: ATTEND Surgery
DX: E11.621 Type 2 diabetes mellitus with foot ulcer (principal); L97.512 Non-pressure chronic ulcer of other part of right foot with fat layer exposed; E11.40 Type 2 diabetes mellitus with diabetic neuropathy, unspecified; I10 Essential (primary) hypertension; E78.5 Hyperlipidemia, unspecified; Z87.891 Personal history of nicotine dependence

== ENCOUNTER 2018-05-28 17:00 | Outpatient (CLI) | payer MEDICAID ==
[2018-05-28 16:12] LABS: Basophils # (Auto) 0.1 K/mm3 (0.0-0.1); Basophils % (Auto) 0.7 % (0.0-1.8); Eosinophils # (Auto) 0.3 K/mm3 (0.0-0.4); Eosinophils % (Auto) 4.2 % (0.0-4.3); Lymphocytes # (Auto) 2.1 K/mm3 (1.2-5.4); Lymphocytes % (Auto) 26.6 % (13.4-35.0); Mean Corpuscular HGB Conc 32 % (30-34); Mean Corpuscular Volume 80 fl (79-97); Monocytes # (Auto) 0.6 K/mm3 (0.0-0.8); Monocytes % (Auto) 7.8 % (0.0-7.3); Platelet Count 470 K/mm3 (140-440); Red Blood Count 3.86 M/mm3 (3.65-5.03); Red Cell Distribution Width 15.2 % (13.2-15.2)
[2018-05-28 16:24] LABS: Alanine Aminotransferase 6 units/L (7-56); Blood Urea Nitrogen 11 mg/dL (7-17)
[2018-05-28 16:35] LABS: Erythrocyte Sedimentation Rate 84 mm/Hr (0-20)
== END 2018-05-28 17:01 | disposition home or self-care (01) ==
LOC: LABHHL 17:00
PROVIDERS: ATTEND Nurse Practitioner Acute Care
DX: E11.621 Type 2 diabetes mellitus with foot ulcer (principal); L97.519 Non-pressure chronic ulcer of other part of right foot with unspecified severity; E66.9 Obesity, unspecified; I10 Essential (primary) hypertension; Z87.891 Personal history of nicotine dependence
CPT/HCPCS: 36415; 82565; 84450; 84460; 84520; 85025; 85652; 86140

== ENCOUNTER 2018-06-03 07:59 | Outpatient (CLI) | payer MEDICAID | END 2018-06-03 08:00 | disposition home or self-care (01) | LOC: WOUND 07:59 | CPT/HCPCS: 97605 ==

== ENCOUNTER 2018-06-06 10:32 | Outpatient (CLI) | payer MEDICAID | END 2018-06-06 10:33 | disposition home or self-care (01) | LOC: WOUND 10:32 | CPT/HCPCS: 97605 ==

== ENCOUNTER 2018-06-10 07:55 | Outpatient (CLI) | payer MEDICAID | END 2018-06-10 07:56 | disposition home or self-care (01) | LOC: WOUND 07:55 | CPT/HCPCS: 97605 ==

== ENCOUNTER 2018-06-13 10:50 | Outpatient (CLI) | payer MEDICAID | END 2018-06-13 10:51 | disposition home or self-care (01) | LOC: WOUND 10:50 | PROVIDERS: ATTEND Surgery | DX: E11.621 Type 2 diabetes mellitus with foot ulcer (principal); L97.512 Non-pressure chronic ulcer of other part of right foot with fat layer exposed; E11.40 Type 2 diabetes mellitus with diabetic neuropathy, unspecified; I10 Essential (primary) hypertension; E78.5 Hyperlipidemia, unspecified; Z87.891 Personal history of nicotine dependence | CPT/HCPCS: 97605 ==

== ENCOUNTER 2018-06-17 07:55 | Outpatient (CLI) | payer MEDICAID | END 2018-06-17 07:56 | disposition home or self-care (01) | LOC: WOUND 07:55 | PROVIDERS: ATTEND Surgery | DX: E11.621 Type 2 diabetes mellitus with foot ulcer (principal); L97.512 Non-pressure chronic ulcer of other part of right foot with fat layer exposed; E11.40 Type 2 diabetes mellitus with diabetic neuropathy, unspecified; I10 Essential (primary) hypertension; E78.5 Hyperlipidemia, unspecified; Z87.891 Personal history of nicotine dependence | CPT/HCPCS: 97605 ==

== ENCOUNTER 2018-06-21 07:59 | Outpatient (CLI) | payer MEDICAID | END 2018-06-21 08:00 | disposition home or self-care (01) | LOC: WOUND 07:59 | PROVIDERS: ATTEND Surgery | DX: E11.621 Type 2 diabetes mellitus with foot ulcer (principal); L97.511 Non-pressure chronic ulcer of other part of right foot limited to breakdown of skin; E11.40 Type 2 diabetes mellitus with diabetic neuropathy, unspecified; I10 Essential (primary) hypertension; E78.5 Hyperlipidemia, unspecified; Z87.891 Personal history of nicotine dependence | CPT/HCPCS: 97605 ==

== ENCOUNTER 2018-06-24 07:53 | Outpatient (CLI) | payer MEDICAID | END 2018-06-24 07:54 | disposition home or self-care (01) | LOC: WOUND 07:53 | PROVIDERS: ATTEND Surgery | DX: E11.621 Type 2 diabetes mellitus with foot ulcer (principal); L97.511 Non-pressure chronic ulcer of other part of right foot limited to breakdown of skin; E11.40 Type 2 diabetes mellitus with diabetic neuropathy, unspecified; E78.5 Hyperlipidemia, unspecified; I10 Essential (primary) hypertension; Z87.891 Personal history of nicotine dependence | CPT/HCPCS: 87076; 87116; 87186; 97605 ==

== ENCOUNTER 2018-06-27 07:56 | Outpatient (CLI) | payer MEDICAID | END 2018-06-27 07:57 | disposition home or self-care (01) | LOC: WOUND 07:56 | PROVIDERS: ATTEND Surgery | DX: E11.621 Type 2 diabetes mellitus with foot ulcer (principal); L97.511 Non-pressure chronic ulcer of other part of right foot limited to breakdown of skin; E11.40 Type 2 diabetes mellitus with diabetic neuropathy, unspecified; I10 Essential (primary) hypertension; E78.5 Hyperlipidemia, unspecified; Z87.891 Personal history of nicotine dependence | CPT/HCPCS: 97605 ==

== ENCOUNTER 2018-07-04 07:52 | Outpatient (CLI) | payer MEDICAID | END 2018-07-04 07:53 | disposition home or self-care (01) | LOC: WOUND 07:52 | PROVIDERS: ATTEND Surgery | DX: E11.621 Type 2 diabetes mellitus with foot ulcer (principal); L97.511 Non-pressure chronic ulcer of other part of right foot limited to breakdown of skin; E11.40 Type 2 diabetes mellitus with diabetic neuropathy, unspecified; I10 Essential (primary) hypertension; E78.5 Hyperlipidemia, unspecified; Z87.891 Personal history of nicotine dependence | CPT/HCPCS: 97605 ==

== ENCOUNTER 2018-07-08 07:52 | Outpatient (CLI) | payer MEDICAID ==
[2018-07-08] MEDS ORDERED: XYLOCAINE TOPICAL 4% TP ONE (08:30)
[2018-07-08] MEDS ORDERED: SILVER NITRATE TP ONE (10:00)
== END 2018-07-08 07:53 | disposition home or self-care (01) ==
LOC: WOUND 07:52
PROVIDERS: ATTEND Surgery
DX: E11.621 Type 2 diabetes mellitus with foot ulcer (principal); L97.512 Non-pressure chronic ulcer of other part of right foot with fat layer exposed; L84 Corns and callosities; E11.40 Type 2 diabetes mellitus with diabetic neuropathy, unspecified; I10 Essential (primary) hypertension; E78.5 Hyperlipidemia, unspecified; Z87.891 Personal history of nicotine dependence

== ENCOUNTER 2018-07-15 07:52 | Outpatient (CLI) | payer MEDICAID ==
[2018-07-15] MEDS ORDERED: SILVER NITRATE TP ONE (09:00)
== END 2018-07-15 07:53 | disposition home or self-care (01) ==
LOC: WOUND 07:52
PROVIDERS: ATTEND Surgery
DX: E11.621 Type 2 diabetes mellitus with foot ulcer (principal); L97.512 Non-pressure chronic ulcer of other part of right foot with fat layer exposed; L84 Corns and callosities; E11.40 Type 2 diabetes mellitus with diabetic neuropathy, unspecified; I10 Essential (primary) hypertension; E78.5 Hyperlipidemia, unspecified; Z87.891 Personal history of nicotine dependence

== ENCOUNTER 2018-07-22 07:54 | Outpatient (CLI) | payer SELFPAY ==
[2018-07-22] MEDS ORDERED: SILVER NITRATE TP ONE (08:30)
[2018-07-22] MEDS ORDERED: AD OINTMENT TP SCH (10:30)
== END 2018-07-22 07:55 | disposition home or self-care (01) ==
LOC: WOUND 07:54
PROVIDERS: ATTEND Surgery
DX: E11.621 Type 2 diabetes mellitus with foot ulcer (principal); L97.512 Non-pressure chronic ulcer of other part of right foot with fat layer exposed; E11.40 Type 2 diabetes mellitus with diabetic neuropathy, unspecified; L84 Corns and callosities; I10 Essential (primary) hypertension; E78.5 Hyperlipidemia, unspecified; Z87.891 Personal history of nicotine dependence
CPT/HCPCS: 17250; A6250

== ENCOUNTER 2018-08-13 07:54 | Outpatient (CLI) | payer MEDICAID | END 2018-08-13 07:55 | disposition home or self-care (01) | LOC: WOUND 07:54 | PROVIDERS: ATTEND Surgery | DX: E11.621 Type 2 diabetes mellitus with foot ulcer (principal); L97.512 Non-pressure chronic ulcer of other part of right foot with fat layer exposed; L84 Corns and callosities; E11.40 Type 2 diabetes mellitus with diabetic neuropathy, unspecified; I10 Essential (primary) hypertension; E78.5 Hyperlipidemia, unspecified; Z87.891 Personal history of nicotine dependence ==

== ENCOUNTER 2018-08-19 07:50 | Outpatient (CLI) | payer MEDICAID | END 2018-08-19 07:51 | disposition home or self-care (01) | LOC: WOUND 07:50 | PROVIDERS: ATTEND Surgery | DX: E11.621 Type 2 diabetes mellitus with foot ulcer (principal); L97.512 Non-pressure chronic ulcer of other part of right foot with fat layer exposed; E11.40 Type 2 diabetes mellitus with diabetic neuropathy, unspecified; L84 Corns and callosities; I10 Essential (primary) hypertension; E78.5 Hyperlipidemia, unspecified; Z87.891 Personal history of nicotine dependence ==

== ENCOUNTER 2018-08-27 07:54 | Outpatient (CLI) | payer MEDICAID | END 2018-08-27 07:55 | disposition home or self-care (01) | LOC: WOUND 07:54 | PROVIDERS: ATTEND Surgery | DX: E11.621 Type 2 diabetes mellitus with foot ulcer (principal); L97.512 Non-pressure chronic ulcer of other part of right foot with fat layer exposed; E11.40 Type 2 diabetes mellitus with diabetic neuropathy, unspecified; L84 Corns and callosities; I10 Essential (primary) hypertension; E78.5 Hyperlipidemia, unspecified; Z87.891 Personal history of nicotine dependence ==

== ENCOUNTER 2018-09-02 07:53 | Outpatient (CLI) | payer MEDICAID ==
[2018-09-02] MEDS ORDERED: SILVER NITRATE TP ONE (09:00)
== END 2018-09-02 07:54 | disposition home or self-care (01) ==
LOC: WOUND 07:53
PROVIDERS: ATTEND Surgery
DX: E11.621 Type 2 diabetes mellitus with foot ulcer (principal); L97.512 Non-pressure chronic ulcer of other part of right foot with fat layer exposed; E11.40 Type 2 diabetes mellitus with diabetic neuropathy, unspecified; L84 Corns and callosities; I10 Essential (primary) hypertension; E78.5 Hyperlipidemia, unspecified; Z87.891 Personal history of nicotine dependence

== ENCOUNTER 2018-09-09 07:54 | Outpatient (CLI) | payer MEDICAID | END 2018-09-09 07:55 | disposition home or self-care (01) | LOC: WOUND 07:54 | PROVIDERS: ATTEND Surgery | DX: E11.621 Type 2 diabetes mellitus with foot ulcer (principal); L97.512 Non-pressure chronic ulcer of other part of right foot with fat layer exposed; E11.40 Type 2 diabetes mellitus with diabetic neuropathy, unspecified; L84 Corns and callosities; I10 Essential (primary) hypertension; E78.5 Hyperlipidemia, unspecified; Z87.891 Personal history of nicotine dependence ==

== ENCOUNTER 2018-09-16 07:53 | Outpatient (CLI) | payer MEDICAID, SELFPAY ==
[2018-09-16] MEDS ORDERED: AD OINTMENT TP PRN (08:11)
== END 2018-09-16 07:54 | disposition home or self-care (01) ==
LOC: WOUND 07:53
PROVIDERS: ATTEND Surgery
DX: E11.621 Type 2 diabetes mellitus with foot ulcer (principal); L97.512 Non-pressure chronic ulcer of other part of right foot with fat layer exposed; E11.40 Type 2 diabetes mellitus with diabetic neuropathy, unspecified; L84 Corns and callosities; I10 Essential (primary) hypertension; E78.5 Hyperlipidemia, unspecified; Z87.891 Personal history of nicotine dependence
CPT/HCPCS: A6250

== ENCOUNTER 2018-09-23 07:56 | Outpatient (CLI) | payer MEDICAID, SELFPAY | END 2018-09-23 07:57 | disposition home or self-care (01) | LOC: WOUND 07:56 | PROVIDERS: ATTEND Surgery | DX: E11.621 Type 2 diabetes mellitus with foot ulcer (principal); L97.512 Non-pressure chronic ulcer of other part of right foot with fat layer exposed; E11.40 Type 2 diabetes mellitus with diabetic neuropathy, unspecified; L84 Corns and callosities; I10 Essential (primary) hypertension; E78.5 Hyperlipidemia, unspecified; Z87.891 Personal history of nicotine dependence ==

== ENCOUNTER 2018-09-30 07:49 | Outpatient (CLI) | payer MEDICAID, SELFPAY | END 2018-09-30 07:50 | disposition home or self-care (01) | LOC: WOUND 07:49 | PROVIDERS: ATTEND Surgery | DX: E11.621 Type 2 diabetes mellitus with foot ulcer (principal); L97.512 Non-pressure chronic ulcer of other part of right foot with fat layer exposed; E11.40 Type 2 diabetes mellitus with diabetic neuropathy, unspecified; L84 Corns and callosities; I10 Essential (primary) hypertension; E78.5 Hyperlipidemia, unspecified; Z87.891 Personal history of nicotine dependence | CPT/HCPCS: 99213; G0463 ==

== ENCOUNTER 2018-10-14 08:12 | Outpatient (CLI) | payer MEDICAID | END 2018-10-14 08:13 | disposition home or self-care (01) | LOC: WOUND 08:12 | PROVIDERS: ATTEND Surgery | DX: E11.621 Type 2 diabetes mellitus with foot ulcer (principal); L97.512 Non-pressure chronic ulcer of other part of right foot with fat layer exposed; E11.40 Type 2 diabetes mellitus with diabetic neuropathy, unspecified; I10 Essential (primary) hypertension; E78.5 Hyperlipidemia, unspecified; Z87.891 Personal history of nicotine dependence | CPT/HCPCS: 99213; G0463 ==